=== PATIENT | male | born 1970 | race Caucasian/White ===

== ENCOUNTER 2023-04-10 15:48 | Inpatient (IN) | payer OTHER ==
[2023-04-10] MEDS ORDERED: SODIUM CHLORIDE 0.9% 1,000 ML IV STA (16:24)
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
[2023-04-10 17:08] LABS: Basophils # (A) 0.1 k/uL (0-0.2); Basophils % (A) 1 %; Eosinophils # (A) 0.1 k/uL (0-0.7); Eosinophils % (A) 1 %; HCT 44.3 % (39.0-53.0); HGB 15.5 gm/dL (13.0-17.5); Lymphocytes # (A) 1.3 k/uL (1.0-4.8); Lymphocytes % (A) 12 %; MCH 31.6 pg (25.0-35.0); MCV 90.5 fL (80.0-100.0); Mean Platelet Volume 7.9; Monocytes # (A) 0.5 k/uL (0-1.0); Monocytes % (A) 5 %; Neutrophils # (A) 8.4 k/uL (1.3-7.7); Neutrophils % (A) 80 %; Platelet Count 277 k/uL (150-450); WBC 10.5 k/uL (3.8-10.6)
[2023-04-10 17:16] LABS: ALT 111 U/L (4-49); AST 82 U/L (17-59); African American GFR (CKD) >90 (>60 ml/min/1.73 sqM); Albumin 4.5 g/dL (3.5-5.0); Alkaline Phosphatase 120 U/L (38-126); Anion Gap 13 mmol/L; Blood Urea Nitrogen 11 mg/dL (9-20); Calcium 9.2 mg/dL (8.4-10.2); Carbon Dioxide 22 mmol/L (22-30); Chloride 102 mmol/L (98-107); Glucose 248 mg/dL (74-99); Magnesium 1.9 mg/dL (1.6-2.3); Non-African American GFR(CKD) >90 (>60 ml/min/1.73 sqM); Potassium 4.5 mmol/L (3.5-5.1); Sodium 137 mmol/L (137-145); Total Bilirubin 0.5 mg/dL (0.2-1.3); Total Protein 7.4 g/dL (6.3-8.2)
[2023-04-10 17:36] LABS: INR 0.9 (<1.2); Partial Thromboplastin Time 23.1 sec (22.0-30.0); Prothrombin Time 10.2 sec (10.0-12.5)
--- NOTE | 2023-04-10 17:39 | XR ---
EXAMINATION TYPE: XR chest 2V DATE OF EXAM: 04/10/2023 5:26 PM CLINICAL INDICATION:Male, 53 years old with history of syncope; [facility] COMPARISON: None TECHNIQUE: XR chest 2V Frontal and lateral views of the chest. FINDINGS: Lungs/Pleura: There is no evidence of pleural effusion, focal consolidation, or pneumothorax. Pulmonary vascularity: Unremarkable. Heart/mediastinum: Cardiomediastinal silhouette is unremarkable. Musculoskeletal: No acute osseous pathology. IMPRESSION: No acute cardiopulmonary disease/process.
[2023-04-10 18:18] LABS: Appearance,Urine Clear (Clear); Bilirubin,Urine Negative (Negative); Blood,Urine Negative (Negative); Color,Urine Light Yellow; Glucose,Urine (UA) 3+ (Negative); Ketones,Urine Negative (Negative); Leukocyte Esterase,Urine Negative (Negative); Nitrite,Urine Negative (Negative); PH, Urine 5.5 (5.0-8.0); Protein,Urine Trace (Negative); Specific Gravity,Urine 1.012 (1.001-1.035); Urobilinogen,Urine <2.0 mg/dL (<2.0)
[2023-04-10] MEDS ORDERED: ASPIRIN 325 MG TAB PO STA (19:43)
[2023-04-10] MEDS ORDERED: NALOXONE 0.4 MG/ML 1 ML VIAL IV PRN (19:54)
[2023-04-10] MEDS ORDERED: ACETAMINOPHEN TAB 325 MG TAB PO PRN (19:54)
[2023-04-10] MEDS: atenoloL 25 MG TAB PO SCH (22:09)
[2023-04-10] MEDS: SODIUM CHLORIDE 0.9% 1,000 ML IV SCH (22:09)
[2023-04-11] MEDS: atenoloL 25 MG TAB PO SCH (08:31)
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
[2023-04-11] MEDS: carvediloL 12.5 MG TAB PO SCH ×2 (14:44→16:29)
[2023-04-11] MEDS: SODIUM CHLORIDE 0.9% 1,000 ML IV SCH (16:31)
[2023-04-11 20:35] LABS: Glucose,Whole Blood 163 mg/dL (70-110)
[2023-04-11] MEDS ORDERED: ATORVASTATIN 40 MG TAB PO SCH (21:00)
[2023-04-12 06:01] VITALS: RESP 16
[2023-04-12] MEDS: carvediloL 12.5 MG TAB PO SCH (06:08)
[2023-04-12 06:15] LABS: Glucose,Whole Blood 150 mg/dL (70-110)
--- NOTE | 2023-04-12 10:20 | CA ---
Transthoracic Echo Report Name: Luke Ndiaye Age: 53 Gender: M : 1970 Exam Date: 04/11/2023 12:44 Exam Location: [facility] Ht (in): 64 Wt (lb): 170 Ordering Physician: Pepe Suazo MD Attending/Referring Phys: [id number], [facility] Lead Psychologist Joe Camara RD Procedure CPT: Indications: Syncope Cardiac Hx: Technical Quality: Technically difficult study Contrast 1: Total Dose (mL): Contrast 2: Total Dose (mL): MEASUREMENTS (Male / Female) Normal Values 2D ECHO LV Diastolic Diameter PLAX 4.4 cm 4.2 - 5.9 / 3.9 - 5.3 cm LV Systolic Diameter PLAX 2.9 cm IVS Diastolic Thickness 1.3 cm 0.6 - 1.0 / 0.6 - 0.9 cm LVPW Diastolic Thickness 1.1 cm 0.6 - 1.0 / 0.6 - 0.9 cm LV Relative Wall Thickness 0.5 RV Internal Dim ED PLAX 2.3 cm LVOT Diameter 2.2 cm Aortic Root Diameter 2.4 cm LA Systolic Diameter LX 2.2 cm 3.0 - 4.0 / 2.7 - 3.8 cm LV Diastolic Volume MOD BP 60.2 cm??? 67 - 155 / 56 - 104 cm??? LV Systolic Volume MOD BP 38.5 cm??? 22 - 58 / 19 - 49 cm??? LV Ejection Fraction MOD BP 36.0 % >= 55 % LV Cardiac Index MOD BP 870.6 cm???/min???m??? LV Diastolic Volume MOD 4C 59.3 cm??? LV Systolic Volume MOD 4C 41.7 cm??? LV Ejection Fraction MOD 4C 29.7 % LV Cardiac Index MOD 4C 709.1 cm???/min???m??? LV Diastolic Length 4C 7.7 cm LV Systolic Length 4C 7.1 cm LV Diastolic Volume MOD 2C 61.5 cm??? LV Systolic Volume MOD 2C 34.9 cm??? LV Ejection Fraction MOD 2C 43.3 % LV Cardiac Index MOD 2C 1072.2 cm???/min???m??? LV Diastolic Length 2C 7.7 cm LV Systolic Length 2C 6.7 cm LA Volume 28.7 cm??? 18 - 58 / 22 - 52 cm??? LA Volume Index 15.2 cm???/m??? 16 - 28 cm???/m??? Ascending Aorta Diameter 2.3 cm DOPPLER AV Peak Velocity 396.9 cm/s AV Peak Gradient 63.0 mmHg AV Mean Velocity 311.2 cm/s AV Mean Gradient 42.4 mmHg AV Velocity Time Integral 91.0 cm LVOT Peak Velocity 63.0 cm/s LVOT Peak Gradient 1.6 mmHg LVOT Velocity Time Integral 15.9 cm LVOT Stroke Volume 59.6 cm??? LVOT Stroke Volume Index 32.6 ml/m??? LVOT Cardiac Index 2395.9 cm???/min???m??? AV Area Cont Eq vti 0.7 cm??? AV Area Cont Eq pk 0.6 cm??? MV Peak Velocity 83.3 cm/s MV Peak Gradient 2.8 mmHg MV Mean Velocity 47.2 cm/s MV Mean Gradient 1.1 mmHg MV Velocity Time Integral 28.1 cm MR Peak Velocity 225.6 cm/s MR Peak Gradient 20.4 mmHg Mitral E Point Velocity 72.9 cm/s Mitral A Point Velocity 82.2 cm/s Mitral E to A Ratio 0.9 MV Deceleration Time 242.6 ms TR Peak Velocity 144.8 cm/s TR Peak Gradient 8.4 mmHg Right Ventricular Systolic Press 13.4 mmHg PV Peak Velocity 131.8 cm/s PV Peak Gradient 7.0 mmHg FINDINGS Left Ventricle Normal LV size. Mild concentric LVH. Left ventricular ejection fraction is estimated at 40-45 %. Right Ventricle Normal right ventricular size. Right Atrium Normal right atrial size. Left Atrium Normal left atrial size. Mitral Valve Structurally normal mitral valve. Mild MR. Aortic Valve Aortic valve not well visualized. Moderate to severe AV calcification. [id number] aortic stenosis with a peak gradient of 63 mmHg and a mean gradient of 42 mmHg. Tricuspid Valve Tricuspid valve not well visualized. Mild TR. Pulmonic Valve Pulmonic valve not well visualized. No pulmonic regurgitation. Pericardium Normal pericardium. Aorta Normal size aortic root and proximal ascending aorta. CONCLUSIONS Technically difficult study with suboptimal acoustic windows Mild LV dysfunction aortic valve not well visualized but heavily calcified with a mean gradient of over 40 mmHg Previewed by: Dr. Manuel Pittman MD (Electronically Signed) Final Date: 12 April 2023 10:19
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
--- NOTE | 2023-04-12 14:59 | P.PN ---
Progress Note - Text Progress Note Date: 04/12/23 Met with patient and , discussed surgical aortic valve replacement at length. Patient will need heart catheterization and dental clearance, discussed with the patient. Dr. Horton will get patient set up for heart catheterization then will refer patient to our surgical services. We will get carotid dopplers, bedside spirometry, and labs when patient has his heart cath. Patient will work on getting dental clearance. Our contact information was given to patient, all questions were answered. Formal consult to be dictated when patient follows in the office.
[2023-04-12 15:24] VITALS: BP 134/85; PULSE 91; TEMP 98.1
--- NOTE | 2023-04-12 23:29 | PN ---
PROGRESS NOTE DATE OF SERVICE: 04/11/2023 SUBJECTIVE: The patient is doing better. No chest pain, shortness of breath. Waiting on his echocardiogram report. OBJECTIVE: CARDIOVASCULAR: S1, S2. LUNGS: Transmitted upper sounds. GI: Soft. HEMATOLOGY: Negative for Homans. PSYCH: Fair mood and affect. NEUROLOGIC: Alert and oriented x3. Echo was reviewed. He has [id number] AV calcification, moderate to severe aortic stenosis with a peak gradient of 63 and mean gradient of 42. Technically difficult study, mild LV dysfunction. He will possibly need aortic valve replacement down the road. We will have him follow up with Dr. Quevedo for possible evaluation for the aortic valve. Please see further orders. MMODL / IJN: [id number] /
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
== END 2023-04-12 16:22 | disposition home or self-care (01) | DRG 200 ==
LOC: EC 15:48 → 3SCARD 19:56
PROVIDERS: ADMIT Family Medicine; ATTEND Family Medicine
DX: I08.3 Combined rheumatic disorders of mitral, aortic and tricuspid valves (principal); I42.2 Other hypertrophic cardiomyopathy; R55 Syncope and collapse; I10 Essential (primary) hypertension; E86.0 Dehydration; E86.1 Hypovolemia; Z88.1 Allergy status to other antibiotic agents; Z88.0 Allergy status to penicillin; W01.0XXA Fall on same level from slipping, tripping and stumbling without subsequent striking against object, initial encounter; Z87.891 Personal history of nicotine dependence
CPT/HCPCS: 36415; 71046; 80053; 81003; 83036; 83735; 84484; 85025; 85379; 85610; 85730; 93005; 93270; 93306; 94760; 96360; 96361; 99285

== ENCOUNTER 2023-04-25 10:43 | Day surgery (SDC) | payer OTHER ==
[~2023-04-25 10:43] MED LIST: ALPRAZolam 0.25 MG TAB PO PRN; ALPRAZolam 0.5 MG TAB PO PRN; ASPIRIN 325 MG TAB PO STA; SODIUM CHLORIDE 0.9% 1,000 ML in EMPTY BAG 1 BAG IV SCH
[2023-04-25] MEDS ORDERED: SODIUM CHLORIDE 0.9% 1,000 ML IV ONE (11:07)
[2023-04-25 12:02] LABS: ALT 131 U/L (4-49); AST 51 U/L (17-59); African American GFR (CKD) >90 (>60 ml/min/1.73 sqM); Albumin 4.6 g/dL (3.5-5.0); Alkaline Phosphatase 103 U/L (38-126); Anion Gap 11 mmol/L; Blood Urea Nitrogen 9 mg/dL (9-20); Calcium 9.5 mg/dL (8.4-10.2); Carbon Dioxide 27 mmol/L (22-30); Chloride 102 mmol/L (98-107); Glucose 140 mg/dL (74-99); Magnesium 2.1 mg/dL (1.6-2.3); Non-African American GFR(CKD) >90 (>60 ml/min/1.73 sqM); Potassium 4.6 mmol/L (3.5-5.1); Sodium 140 mmol/L (137-145); Total Bilirubin 0.8 mg/dL (0.2-1.3); Total Protein 7.5 g/dL (6.3-8.2)
[2023-04-25 12:12] VITALS: RESP 16; TEMP 97.6
[2023-04-25 12:12] LABS: Basophils # (A) 0.1 k/uL (0-0.2); Basophils % (A) 1 %; Eosinophils # (A) 0.1 k/uL (0-0.7); Eosinophils % (A) 1 %; HCT 44.6 % (39.0-53.0); HGB 15.5 gm/dL (13.0-17.5); Lymphocytes # (A) 2.1 k/uL (1.0-4.8); Lymphocytes % (A) 23 %; MCHC 34.9 g/dL (31.0-37.0); Mean Platelet Volume 7.7; Monocytes # (A) 0.6 k/uL (0-1.0); Monocytes % (A) 6 %; Neutrophils # (A) 6.3 k/uL (1.3-7.7); Neutrophils % (A) 68 %; Partial Thromboplastin Time 25.4 sec (22.0-30.0); Platelet Count 335 k/uL (150-450); Prothrombin Time 10.6 sec (10.0-12.5); RBC 5.01 m/uL (4.30-5.90); WBC 9.4 k/uL (3.8-10.6)
[2023-04-25] MEDS ORDERED: BENZOCAINE SPRAY 1 CAN MUCOUS MEM ONE ×2 (12:45→12:50)
[2023-04-25] MEDS ORDERED: LIDOCAINE 1% INJ 10MG/ML (20 ML MDV) ONE (12:48)
[2023-04-25] MEDS ORDERED: VERAPAMIL 2.5 MG/ML 2 ML AMP ONE (12:48)
[2023-04-25] MEDS ORDERED: fentaNYL (PF) 50 MCG/ML 2 ML AMP ONE (12:51)
[2023-04-25] MEDS ORDERED: MIDAZOLAM 2 MG/2 ML VIAL IVP ONE ×3 (12:53→13:10)
[2023-04-25] MEDS ORDERED: fentaNYL (PF) 50 MCG/1 ML VIAL IVP ONE (12:53)
[2023-04-25] MEDS ORDERED: IV FLUID CONTINUATION 1,000 ML IV ONE (12:55)
--- NOTE | 2023-04-25 13:05 | P.PCN ---
Date of Procedure: 04/25/23 Operative Findings: TRANSESOPHAGEAL ECHOCARDIOGRAM BUSINESS RULES DEVELOPER: AMRIK MORFIN MD, RPVI INDICATION: Aortic stenosis SEDATION: Conscious sedation COMPLICATION: None LEVEL OF SEDATION Moderate with sedation in length of 16 minutes PROCEDURE DESCRIPTION: After obtaining an informed consent, the patient was brought to transesophageal echocardiogram room. Pulse oximetry and heart monitors were attached to the patient. The patient throat was sprayed using lidocaine. The patient was turned into left lateral position. After that a bite guard was placed. After an appropriate conscious sedation was initiated, the transesophageal echocardiogram was advanced through a bite guard into the mid esophagus. A 2-D echocardiogram images, color Doppler images, continuous wave images, pulse-wave images, of various cardiac structure were performed. After that the transesophageal echocardiogram probe was advanced into the stomach and fixed to obtain transgastric view was. The probe was brought into the mid esophagus. Inter-atrial septum was interrogated using 2D images, color Doppler images, and then contrast study. After that transesophageal echocardiogram was withdrawn out and upon withdrawing the descending thoracic aorta all the way up to the arch was evaluated. CONCLUSION: 1. Bicuspid aortic valve with fusion of the right and left coronary cusps and evidence of aortic sclerosis and severe stenosis with a mean gradient of 41 mmHg 2. Normal left ventricular dimension and systolic function with evidence of concentric left ventricular hypertrophy 3. Normal mitral valve leaflets with mild mitral regurgitation 4. Normal tricuspid valve and pulmonic valve 5. Aneurysmal interatrial septum was evidence of patent foramen ovale and [id number]-vo-xdqa shunt and possibly hnjg-nd-wgazo shunt 6. No evidence of pericardial effusion
[2023-04-25] MEDS ORDERED: LIDOCAINE 1% INJ 10MG/ML (20 ML MDV) SQ ONE (13:10)
[2023-04-25] MEDS ORDERED: VERAPAMIL SYRINGE (5 MG/10 ML) INTRAARTER ONE (13:12)
[2023-04-25] MEDS ORDERED: HEPARIN SODIUM 1,000 UN/ML (10ML VL) IVP ONE (13:14)
[2023-04-25] MEDS ORDERED: RX INFO: IV CONTRAST WAS GIVEN 1 EACH MISC MISCELLANE PRN (13:17)
[2023-04-25] MEDS ORDERED: IOPAMIDOL-370 200ML BTL IVP ONE (13:18)
--- NOTE | 2023-04-25 13:20 | P.PCN ---
Date of Procedure: 04/25/23 Operative Findings: CARDIAC CATHETERIZATION PERFORMING PHYSICIAN: Ming Galvin MD, RPVI PROCEDURE PERFORMED: 1. Selective right and left coronary angiogram 2. Ultrasound-guided access of the right radial artery INDICATION: Severe aortic stenosis COMPLICATION: None APPROACH: Right radial artery LEVEL OF SEDATION: Moderate with a sedation length of 8 minutes PROCEDURE DESCRIPTION: After obtaining an informed consent, the patient was brought to cardiac public works laborer. Local anesthesia was performed using lidocaine subcutaneously. The right radial artery was cannulated using Seldinger technique, the guidewire passed easily, following that we advanced a 5-Sudanese sheath dilator assembly, the wire and dilator were removed and sheath was flushed. Following that, 2 mg of verapamil along with 5000 unit heparin were given. Selective right and left coronary angiogram using a 6-Sudanese JR4 and JL 3.5 catheters. The procedure was completed there was no complication. SELECTIVE CORONARY ANGIOGRAM: The right coronary artery: Large-caliber vessel and a dominant vessel and appears to be angiographically normal Left main: Is angiographically normal The left circumflex: Large caliber vessel nondominant vessel is normal. Gives rise into the first and second obtuse marginal branches both appeared to be normal The left anterior descending artery: Is angiographically normal. It gives rise into the first and second diagonal branches and both appeared to be angiographically normal CONCLUSION: 1. Normal coronary angiogram POSTPROCEDURE MANAGEMENT: The patient to be seen and evaluated for aortic valve replacement
[2023-04-25] MEDS ORDERED: SODIUM CHLORIDE 0.9% 1,000 ML IV SCH (13:30)
[2023-04-25] MEDS ORDERED: SODIUM CHLORIDE 0.9% 500 ML 500 ML IV ONE (14:45)
--- NOTE | 2023-04-25 17:19 | US ---
EXAMINATION TYPE: US carotid duplex BILAT DATE OF EXAM: 04/25/2023 COMPARISON: NONE CLINICAL INDICATION: Male, 53 years old with history of preop cardiac surgery; pre open heart TECHNIQUE: Carotid duplex ultrasound examination. Indirect Doppler criteria was utilized. FINDINGS: EXAM MEASUREMENTS: RIGHT: Peak Systolic Velocity (PSV) cm/sec ----- Right CCA: 63.9 ----- Right ICA: 69.4 ----- Right ECA: 67.7 ICA/CCA ratio: 1.1 RIGHT: End Diastole cm/sec ----- Right CCA: 18.4 ----- Right ICA: 39.8 ----- Right ECA: 6.1 LEFT: Peak Systolic Velocity (PSV) cm/sec ----- Left CCA: 57.5 ----- Left ICA: 88.2 ----- Left ECA: 112.0 ICA/CCA ratio: 1.5 LEFT: End Diastole cm/sec ----- Left CCA: 16.4 ----- Left ICA: 36.8 ----- Left ECA: 11.0 VERTEBRALS (direction of flow): Right Vertebral: Antegrade Left Vertebral: Antegrade Rhythm: Normal ANODE ADJUSTER NOTES: Mild homogeneous plaque with no stenosis seen IMPRESSION: No hemodynamically significant internal carotid artery stenosis on either side. Criteria for Assigning % of Stenosis / Diameter reduction (Estimation based on the indirect measurements of the internal carotid artery velocities (ICA PSV). 1. Normal (no stenosis)=ICA PSV < 125 cm/s: ratio < 2.0: ICA EDV<40 cm/s. 2. Less than 50% stenosis=ICA PSV < 125 cm/s: ratio < 2.0: ICA EDV<40 cm/s. 3. 50 to 69% stenosis=ICA PSV of 125 to 230 cm/s: ration 2.0 ? 4.0: ICA EDV 40-100 cm/s. 4. Greater than 70% stenosis to near occlusion= ICA PSV > 230 cm/s: ratio > 4.0: ICA EDV > 100 cm/s. 5. Near occlusion= ICA PSV velocities may be low or undetectable: variable ratio and ICA EDV. 6. Total occlusion=unable to detect flow.
[2023-04-25 17:51] LABS: Chol/HDL Ratio 2.63 Ratio; LDL Cholesterol,Calculated 42.7 mg/dL (0.0-131.0)
[2023-04-25 19:01] VITALS: BP 112/65; PULSE 80
[2023-04-27 01:53] LABS: Hepatitis A Antibody IgM Nonreactive; Hepatitis B Core IgM Nonreactive; Hepatitis B Surface Antigen Nonreactive; Hepatitis C IgG Antibody Nonreactive
== END 2023-04-25 17:20 | disposition home or self-care (01) ==
LOC: CATHCVL 10:43
PROVIDERS: ATTEND Internal Medicine Interventional Cardiology
DX: I08.0 Rheumatic disorders of both mitral and aortic valves (principal); I25.10 Atherosclerotic heart disease of native coronary artery without angina pectoris; Q21.12 Patent foramen ovale; Z79.899 Other long term (current) drug therapy
CPT/HCPCS: 94150; 93312; 93320; 93325; 93454; 76937; 80061; 80053; 80074; 84443; 83735; 85025; 85610; 85730; 87070; 83036; 93880; 99152; C1769; C1894; J2250; J2001; J1644; J3010; Q9967

== ENCOUNTER → 2023-05-10 | Outpatient (CLI) | payer OTHER ==
--- NOTE | 2023-05-10 08:29 | CT ---
EXAMINATION TYPE: CT chest wo con CT DLP: 574 mGycm, Automated exposure control for dose reduction was used. DATE OF EXAM: 05/10/2023 8:02 AM COMPARISON: Chest radiograph from same day. CLINICAL INDICATION:Male, 53 years old with history of I35.1 AORTIC STENOSIS; PHH, aortic stenosis TECHNIQUE: Multiple axial images were obtained through the chest. Sagittal and coronal reformats were created for review. Contrast used: mL of (None if empty) Oral contrast used: (None if empty) FINDINGS: LUNGS/ PLEURA: No focal consolidation, pneumothorax or pleural effusion. Scattered 1-2 mm nodule dens ities are seen throughout the lungs. AIRWAY: Patent and unremarkable. HEART: Size within normal limits. Aortic valve calcifications are severe.. MEDIASTINUM: No gross evidence of adenopathy. VASCULATURE: No aortic aneurysm. MUSCULOSKELETAL: Moderate disc degeneration changes are present throughout the thoracolumbar spine. SOFT TISSUES/LYMPH NODES: Unremarkable. LOWER NECK: No significant findings. UPPER ABDOMEN: No significant findings. IMPRESSION: 1. Severe calcified lesions of aortic valve cusps. 2. Scattered 1 to 2 mm pulmonary nodules, no clinically significant pulmonary nodules. 3. No evidence for acute process. Follow up recommendations for incidental pulmonary nodules, if there are any, are per [employer]?s [place] [employer] [employer] or [place] [employer]. [email or web address].org/[email or web address]-[email or web address]?lang=us
--- NOTE | 2023-05-10 08:43 | US ---
EXAMINATION TYPE: US vein mapping BILAT DATE OF EXAM: 05/10/2023 8:13 AM COMPARISON: NONE CLINICAL INDICATION: Male, 53 years old with history of OPEN HEART; open heart SIDE PERFORMED: Bilateral TECHNIQUE: Lower extremity saphenous vein is examined and measured utilizing real time linear array sonography. Patient History: Smoker: previous Heart Disease: needs valve replaced Previous DVT: n Vascular Surgery: n Discoloration: n Hypertension: y Diabetes: n Paralysis: n Varicosities: y Edema: n DUPLEX FINDINGS: Greater Saphenous: Color flow seen Lesser Saphenous: Color flow seen Measurements in mm: Right Greater Saphenous: Groin: 5x6mm High Thigh: 4x4 mm Mid Thigh: 4x4 mm Above Knee: 4x4 mm Knee: 4x4 mm Below Knee: 3x3 mm Mid Calf: 3x4 mm At Ankle: 3x3 mm Left Greater Saphenous: Groin: 6x7 mm High Thigh: 5x5 mm Mid Thigh: 4x5 mm Above Knee: 4x5 mm Knee: 4x4 mm Below Knee: 3x3 mm Mid Calf: 3x4 mm At Ankle: 3x4 mm IMPRESSION: 1. Bilateral GSV measurements listed above. 2. Performing surgeon to determine viability as conduit.
[2023-05-10 08:52] LABS: HGB 14.7 gm/dL (13.0-17.5); MCH 30.8 pg (25.0-35.0); MCHC 34.2 g/dL (31.0-37.0); MCV 90.3 fL (80.0-100.0); Mean Platelet Volume 8.2; Platelet Count 253 k/uL (150-450); RBC 4.76 m/uL (4.30-5.90); WBC 8.7 k/uL (3.8-10.6)
[2023-05-10 09:03] LABS: INR 0.9 (<1.2); Partial Thromboplastin Time 24.3 sec (22.0-30.0); Prothrombin Time 10.2 sec (10.0-12.5)
[2023-05-10 09:24] LABS: ALT 120 U/L (4-49); AST 46 U/L (17-59); African American GFR (CKD) >90 (>60 ml/min/1.73 sqM); Albumin 4.3 g/dL (3.5-5.0); Albumin/Globulin Ratio 1.8; Alkaline Phosphatase 95 U/L (38-126); Anion Gap 9 mmol/L; Blood Urea Nitrogen 9 mg/dL (9-20); Calcium 9.3 mg/dL (8.4-10.2); Carbon Dioxide 25 mmol/L (22-30); Chloride 105 mmol/L (98-107); Globulin 2.4 g/dL; Glucose 240 mg/dL (74-99); Non-African American GFR(CKD) >90 (>60 ml/min/1.73 sqM); Potassium 4.1 mmol/L (3.5-5.1); Sodium 139 mmol/L (137-145); Total Bilirubin 0.7 mg/dL (0.2-1.3); Total Protein 6.7 g/dL (6.3-8.2)
[2023-05-10 09:57] LABS: Appearance,Urine Clear (Clear); Bilirubin,Urine Negative (Negative); Blood,Urine Negative (Negative); Color,Urine Colorless; Glucose,Urine (UA) 4+ (Negative); Ketones,Urine Negative (Negative); Leukocyte Esterase,Urine Negative (Negative); Nitrite,Urine Negative (Negative); Protein,Urine Negative (Negative); Specific Gravity,Urine 1.015 (1.001-1.035); Urobilinogen,Urine <2.0 mg/dL (<2.0)
--- NOTE | 2023-05-10 11:07 | P.PN ---
Progress Note - Text Progress Note Date: 05/10/23 5 meter walk test completed without difficulty: #1 3.07 sec #2 3.15 sec #3 3.2 sec STS risk score calculated for aortic valve replacement and discussed with the patient.
== END | disposition home or self-care (01) ==
LOC: RADCTMAIN 07:31
PROVIDERS: ATTEND Thoracic Surgery (Cardiothoracic Vascular Surgery)
DX: Z01.810 Encounter for preprocedural cardiovascular examination (principal); I35.0 Nonrheumatic aortic (valve) stenosis; I35.8 Other nonrheumatic aortic valve disorders; I35.1 Nonrheumatic aortic (valve) insufficiency; R91.8 Other nonspecific abnormal finding of lung field; I10 Essential (primary) hypertension
CPT/HCPCS: 71250; 80053; 81003; 85027; 85610; 85730; 86850; 86900; 86901; 86920; 93970

== ENCOUNTER 2023-05-11 05:37 | Inpatient (IN) | payer OTHER ==
[~2023-05-11 05:37] MED LIST changes: -ALPRAZolam 0.25 MG TAB PO PRN; -ALPRAZolam 0.5 MG TAB PO PRN; -ASPIRIN 325 MG TAB PO STA; +CALCIUM CHLORIDE 100 MG/ML 10 ML SYRINGE IV ONE; +CHLORHEXIDINE GLUCONATE 15 ML CUP MUCOUS MEM ONE; +HEPARIN SODIUM 1,000 UN/ML (10ML VL) IV ONE; +MANNITOL 25% 12.5 GM/50 ML VIAL IV ONE; +NITROGLYCERIN SL TABS 0.4 MG TAB SUBLINGUAL ONE; +NITROGLYCERIN-D5W PMX 25 MG/250 ML BTL IV ONE; +PHENYLEPHRINE 10 MG/ML VIAL IV ONE; +PROTAMINE SULFATE 10 MG/ML 25 ML VIAL IV ONE; +SODIUM BICARB 8.4% 50 ML SYR (1 MEQ/ML) IV ONE; -SODIUM CHLORIDE 0.9% 1,000 ML in EMPTY BAG 1 BAG IV SCH
[2023-05-11] MEDS: LACTATED RINGERS 1,000 ML IV ONE (05:58)
[2023-05-11] MEDS ORDERED: ONDANSETRON 4 MG/2 ML VIAL ONE (06:41)
[2023-05-11] MEDS: METOPROLOL TARTRATE 12.5 MG TAB PO ONE (06:45)
[2023-05-11] MEDS: ATORVASTATIN 10 MG TAB PO ONE (06:45)
[2023-05-11] MEDS: ASPIRIN 325 MG TAB PO ONE (06:45)
[2023-05-11 06:52] LABS: Glucose,Whole Blood 180 mg/dL (70-110)
[2023-05-11] MEDS ORDERED: PROPOFOL 10 MG/ML 20 ML VIAL IV ONE (07:31)
[2023-05-11] MEDS ORDERED: ROCURONIUM 10 MG/ML (5 ML VIAL) IV ONE (07:31)
[2023-05-11] MEDS ORDERED: INSULIN REGULAR 100 UNIT/ML VIAL (IV) ONE (07:31)
[2023-05-11] MEDS ORDERED: TRANEXAMIC 1,000 MG/100ML-NACL PREMIX BAG ONE (07:31)
[2023-05-11] MEDS ORDERED: MIDAZOLAM HCL 10 MG/10 ML VIAL ONE (07:31)
[2023-05-11] MEDS ORDERED: VECURONIUM 10 MG VIAL IV ONE (07:31)
[2023-05-11] MEDS ORDERED: PROTAMINE SULFATE 10 MG/ML 25 ML VIAL IV ONE (07:31)
[2023-05-11] MEDS ORDERED: fentaNYL (PF) 50 MCG/ML 50 ML VIAL ONE (07:31)
[2023-05-11] MEDS ORDERED: HEPARIN SODIUM,PORCINE 10,000 UNIT/ML 1 ML VIAL ONE (07:31)
[2023-05-11 08:30] LABS: ABG Base Excess -1.9 mmol/L; ABG Glucose Whole Blood 156 mg/dL (75-99); ABG HCO3 24 mmol/L (21-25); ABG Hematocrit 40 % (34.0-46.0); ABG Lactic Acid Whole Blood 1.6 mmol/L (0.5-1.6); ABG Oxygen Saturation >99.4 % (94-97); ABG PCO2 45 mmHg (35-45); ABG PH 7.34 (7.35-7.45); ABG PO2 336 mmHg (83-108); ABG Potassium Whole Blood 4.1 mmol/L (3.4-4.5); ABG Sodium Whole Blood 141 mmol/L (135-146); Allen Test Performed? Yes
[2023-05-11 09:18] LABS: ABG Base Excess -0.8 mmol/L; ABG Glucose Whole Blood 136 mg/dL (75-99); ABG HCO3 24 mmol/L (21-25); ABG Hematocrit 40 % (34.0-46.0); ABG Lactic Acid Whole Blood 1.7 mmol/L (0.5-1.6); ABG Oxygen Saturation >99.4 % (94-97); ABG PCO2 39 mmHg (35-45); ABG PO2 213 mmHg (83-108); ABG Potassium Whole Blood 4.1 mmol/L (3.4-4.5); ABG Sodium Whole Blood 140 mmol/L (135-146); Allen Test Performed? Yes
[2023-05-11] MEDS: ceFAZolin 1,000 MG in SODIUM CHLORIDE 0.9% 1,000 ML IRRIGATION ONE (09:36)
[2023-05-11] MEDS: SODIUM CHLORIDE 0.9% 500 ML 500 ML with HEPARIN SODIUM,PORCINE (1 ML) 5,000 UNIT IV ONE (09:36)
[2023-05-11 09:52] LABS: ABG Base Excess -0.1 mmol/L; ABG Glucose Whole Blood 106 mg/dL (75-99); ABG HCO3 24 mmol/L (21-25); ABG Hematocrit 29 % (34.0-46.0); ABG Lactic Acid Whole Blood 1.8 mmol/L (0.5-1.6); ABG Oxygen Saturation >99.4 % (94-97); ABG PCO2 34 mmHg (35-45); ABG PH 7.45 (7.35-7.45); ABG Potassium Whole Blood 4.7 mmol/L (3.4-4.5); ABG Sodium Whole Blood 138 mmol/L (135-146); Allen Test Performed? Yes
[2023-05-11 10:24] LABS: ABG HCO3 24 mmol/L (21-25); Allen Test Performed? Yes
[2023-05-11 11:45] LABS: ABG Base Excess -1.9 mmol/L; ABG Glucose Whole Blood 164 mg/dL (75-99); ABG Hematocrit 29 % (34.0-46.0); ABG Oxygen Saturation 97.6 % (94-97); ABG PCO2 43 mmHg (35-45); ABG PH 7.35 (7.35-7.45); ABG PO2 86 mmHg (83-108); ABG Potassium Whole Blood 3.9 mmol/L (3.4-4.5); ABG Sodium Whole Blood 141 mmol/L (135-146)
[2023-05-11] MEDS ORDERED: CALCIUM GLUCONATE IN NACL 2 GM in SALINE 1 100ML.BAG IVPB PRN (12:00)
[2023-05-11] MEDS ORDERED: DEXTROSE 50% SYRINGE 50 ML IVP PRN ×2 (12:00)
[2023-05-11] MEDS ORDERED: AMIODARONE 360 MG in DEXTROSE 5% IN WATER 200 ML IV PRN (12:00)
[2023-05-11] MEDS ORDERED: DEXTROSE 5% IN WATER 100 ML with AMIODARONE 150 MG IV PRN (12:00)
[2023-05-11] MEDS ORDERED: Potassium Replacement Protocol 1 EACH MISC MISCELLANE PRN (12:00)
[2023-05-11] MEDS ORDERED: AMIODARONE 450 MG in DEXTROSE 5% IN WATER 250 ML IV PRN (12:00)
[2023-05-11] MEDS ORDERED: Magnesium Replacement Protocol 1 EACH MISC MISCELLANE PRN (12:00)
[2023-05-11] MEDS ORDERED: hydrALAZINE HCL 20 MG/ML 1 ML VIAL IVP PRN (12:00)
[2023-05-11] MEDS ORDERED: METOCLOPRAMIDE 5 MG/ML 2 ML VIAL IVP PRN (12:00)
[2023-05-11] MEDS ORDERED: BENZOCAINE/MENTHOL LOZENG 1 EACH LOZENGE MUCOUS MEM PRN (12:00)
[2023-05-11 12:48] LABS: ABG Ionized Calcium 1.2 mg/dL (4.5-5.3)
[2023-05-11 12:49] LABS: ABG Ionized Calcium 1.2 mg/dL (4.5-5.3)
[2023-05-11 12:50] LABS: ABG PO2 >420 mmHg (83-108)
[2023-05-11 12:52] LABS: ABG Lactic Acid Whole Blood 2.8 mmol/L (0.5-1.6)
[2023-05-11 13:06] LABS: Glucose,Whole Blood 130 mg/dL (70-110)
--- NOTE | 2023-05-11 13:06 | P.OP ---
Date of Procedure: 05/11/23 Preoperative Diagnosis: Calcific bicuspid aortic valve stenosis Postoperative Diagnosis: Same Procedure(s) Performed: Aortic valve replacement with 27 mm Dunne Inspiris bovine valve prosthesis with aortic root enlargement with woven dacron patch (Bill Dacosta technique) and ligation of the left atrial appendage with 35mm AtriCure clamp. SUKHJINDER by anesthesia. Epiaortic ultrasonography. Implants: 27 mm Dunne Inspira's bovine pericardial valve, 35 mm AtriCure clip, dacron graft patch for root enlargement Anesthesia: CARLEY Surgeon: Yevgeniy Quevedo Supervisor Rod Placing #1: Wesly Meek Estimated Blood Loss (ml): 350 IV fluids (ml): 2,000 Urine output (ml): 500 Pathology: other (Aortic valve) Condition: stable Disposition: ICU Indications for Procedure: 53-year-old male with symptomatic aortic stenosis and proven bicuspid aortic valve. He was referred for elective valve replacement. Cardiac catheterization was normal. Dental clearance and appropriate workup were obtained. During consultation, the patient was offered to either mechanical or biological prosthesis and the risks versus benefits of each were explained. Patient did not wish to be on Coumadin and opted for a biologic valve. It was explained if we were going to place a biologic valve that we would likely do a root enlargement to allow implantation of the largest valve possible for subsequent valve in valve transcatheter valve placement. Operative Findings: Heart was markedly enlarged. The aorta was relatively narrow. Epiaortic ultrasonography revealed no significant disease in the ascending aorta. On exploration of the valve, was a bicuspid valve heavily calcified leaflets of the annulus. There was complete fusion of the left and right coronary cusps. There was a heavily calcific raphae between the 2. The left main coronary ostium was displaced laterally to the right and was very close to the commissure between the left and noncoronary cusps. Attempts to pass a valve sizer through the root would only allow passage of a 23 mm sizer following excision of the valve and therefore it was decided to proceed with root enlargement. Following this we were able to see a 27 mm valve fairly easily. Patient easily from cardiopulmonary bypass following valve implantation and SUKHJINDER demonstrated mild paravalvular leak which appeared to improve significantly with administration of protamine. Mean gradient across the aortic valve by SUKHJINDER on completion of the procedure was 9 mmHg with a cardiac index over 3. Description of Procedure: Patient was brought to the operating room and placed supine on the operating table. General anesthesia was induced. Preoperative monitoring lines have been placed in the preop holding area. SUKHJINDER probe was placed. Matthew catheter was placed. Anterior torso and bilateral lower extremities were sterilely prepped and draped in standard fashion. After timeout, midline sternotomy was performed. The left pleural space was opened widely and the right pleural space was opened minimally. Pericardium was opened in the midline and the heart was exposed with pericardial sutures. Epiaortic ultrasonography was performed. Patient was heparinized and cannulated for cardiopulmonary bypass with a 7 mm soft flow cannula in the distal ascending aorta, two-stage venous cannula through the right atrial appendage into the inferior vena cava, antegrade and retrograde cardioplegia lines placed in standard fashion. The patient was placed on cardiopulmonary bypass and stabilized. 35 mm AtriCure clip was placed on the base of the left atrial appendage. 4-0 Prolene pursestring was placed in the right superior pulmonary vein. Aorta was crossclamped and the heart arrested with cold crystalloid cardioplegia followed by retrograde cardioplegia. Left atrial vent was placed through the right superior pulmonary vein. The aorta was opened transversely and the valve exposed. The valve was excised and the annulus decalcified. Copious irrigation was performed at various points during the valve procedure. Valve sizing revealed very tight sinotubular junction and a relatively small annulus. We proceeded to aortic root enlargement by cutting down onto the commissure between the left and noncoronary cusps and then extending this incision laterally beneath the noncoronary cusp. We did not extended in the other direction due to the proximity of the left main coronary artery to this commissure. Woven dacryon graft was opened and cut to appropriate size. It was sewn into the above-mentioned incision and up the aorta on either side using 4-0 Prolene suture in modification of the technique described by Dr. Bill Dacosta. Valve sutures were placed between the raphae and the commissure between the right and noncoronary cusps and then further valve sutures were extended both posteriorly and anteriorly onto the patch. The annulus was again sized and a 27 mm Inspira's valve sizer was placed without difficulty. This valve was opened and brought up on the field of the valve sutures placed in the sewing ring of the valve. The valve was seated in the previously placed sutures were tied. Annular sutures were then completed by placing sutures through the sewing ring of the valve and out the patch and these were tied on the outside. We again irrigated and then completed the aortic closure with the patch toward the left side and with pledgeted 4-0 Prolene suture from the left side up to the patch. On completion of the aortic closure, the patient was placed in Trendelenburg and the cross-clamp was removed. After few minutes the patient return to normal sinus rhythm. Left atrial vent had been removed. Atrial and ventricular pacing wires were placed but we did not need to pace the patient. The aortic suture line was checked and 1 reinforcing suture was placed and that it was reinforced with some CoSeal. The heart was de-aired under SUKHJINDER guidance with a 16-gauge Angiocath in the apex of the ventricle. Once the area was complete antegrade and retrograde cardioplegia lines were removed. After appropriate reperfusion patient was weaned from cardiopulmonary bypass without the need for inotropic support. Excellent hemodynamics were noted. SUKHJINDER showed excellent right and left ventricular function and good valve function with minimal gradient. There was a very small eccentric paravalvular leak which improved following administration of protamine. Protamine was administered and good hemostasis was obtained throughout. Patient was decannulated in standard fashion and the pump was returned to the patient. Patient did not require any blood or blood product transfusion. Once good hemostasis had been verified and the patient was stable hemodynamically with a good appearing SUKHJINDER, the chest was irrigated with antibiotic solution. The left pleural space was drained with a 32 [place] chest tube. Mediastinum was drained with a 36 [place] chest tube. Sternum was closed with 8 sternal wires. Fascia was closed with 0 Ethibond. Subcutaneous and subcuticular layers were closed with layers of Vicryl suture. Dry sterile dressings were applied the patient was transferred to the ICU in stable condition on no inotropic support.
[2023-05-11 13:16] LABS: ABG Base Excess -0.7 mmol/L; ABG HCO3 24 mmol/L (21-25); ABG Oxygen Saturation 99.7 % (94-97); ABG PCO2 41 mmHg (35-45); ABG PH 7.38 (7.35-7.45); ABG PO2 278 mmHg (83-108); ABG TCO2 26 mmol/L (19-24); Allen Test Performed? Yes
[2023-05-11] MEDS: LACTATED RINGERS 1,000 ML IV SCH (13:20)
[2023-05-11] MEDS: INSULIN REGULAR 100 UNIT in SODIUM CHLORIDE 0.9% 100 ML IV SCH (13:21)
[2023-05-11 13:28] LABS: INR 1.2 (<1.2); Partial Thromboplastin Time 28.2 sec (22.0-30.0); Prothrombin Time 12.4 sec (10.0-12.5)
[2023-05-11] MEDS: CLEVIDIPINE BUTYRATE 25 MG in EMPTY BAG 1 BAG IV SCH (13:29)
[2023-05-11] MEDS: ACETAMINOPHEN IV (For NPO) 1,000 MG in EMPTY BAG 1 BAG IVPB SCH ×2 (13:29→17:15)
[2023-05-11] MEDS: ALBUMIN HUMAN 5% 250 ML in EMPTY BAG 1 BAG IVPB PRN (13:31)
[2023-05-11 13:33] LABS: Ionized Calcium 5.1 mg/dL (4.5-5.3)
[2023-05-11] MEDS: IPRATROPIUM-ALBUTEROL 3 ML NEB INHALATION SCH ×2 (13:33→20:36)
[2023-05-11 13:39] LABS: Basophils % (A) 0 %; Eosinophils % (A) 0 %; HCT 32.9 % (39.0-53.0); Lymphocytes # (A) 1.2 k/uL (1.0-4.8); Lymphocytes % (A) 8 %; MCH 31.1 pg (25.0-35.0); MCHC 34.6 g/dL (31.0-37.0); MCV 90.1 fL (80.0-100.0); Monocytes # (A) 0.6 k/uL (0-1.0); Monocytes % (A) 5 %; Neutrophils # (A) 12.1 k/uL (1.3-7.7); Neutrophils % (A) 86 %; Platelet Count 149 k/uL (150-450); RBC 3.66 m/uL (4.30-5.90); RDW 12.1 % (11.5-15.5)
[2023-05-11 13:40] LABS: HGB 11.4 gm/dL (13.0-17.5)
--- NOTE | 2023-05-11 13:41 | XR ---
EXAMINATION TYPE: XR chest 1V portable DATE OF EXAM: 05/11/2023 1:33 PM CLINICAL INDICATION:Male, 53 years old with history of Post Operative Cardiac Surgery; COMPARISON: Chest radiographs from 04/10/2023. TECHNIQUE: XR chest 1V portable Frontal view of the chest. FINDINGS: Lungs/Pleura: There is no evidence of pleural effusion, focal consolidation, or pneumothorax. Pulmonary vascularity: Unremarkable. Heart/mediastinum: Cardiomediastinal silhouette is unremarkable. Post aortic valve repair changes. L eft atrial appendage occlusion device is present. Musculoskeletal: No acute osseous pathology. Midline sternotomy wires are noted. Other findings: None Lines/Tubes: The gastric tube distal tip and side-port project over the gastric lumen. The Endotracheal tube terminates above the neema. There is a Caroline-Puma catheter with tip projecting over the spine. Left thoracotomy tube is present without evidence of pneumothorax. Drainage tubes with tips projecting over the mediastinum. IMPRESSION: Postsurgical changes with lines as described above.
[2023-05-11 13:43] LABS: ALT 65 U/L (4-49); AST 50 U/L (17-59); African American GFR (CKD) >90 (>60 ml/min/1.73 sqM); Albumin 2.9 g/dL (3.5-5.0); Alkaline Phosphatase 59 U/L (38-126); Anion Gap 6 mmol/L; Blood Urea Nitrogen 6 mg/dL (9-20); Calcium 8.7 mg/dL (8.4-10.2); Carbon Dioxide 22 mmol/L (22-30); Chloride 111 mmol/L (98-107); Glucose 114 mg/dL (74-99); Magnesium 3.2 mg/dL (1.6-2.3); Non-African American GFR(CKD) >90 (>60 ml/min/1.73 sqM); Potassium 4.1 mmol/L (3.5-5.1); Sodium 139 mmol/L (137-145); Total Bilirubin 0.7 mg/dL (0.2-1.3); Total Protein 4.7 g/dL (6.3-8.2)
[2023-05-11 14:09] LABS: Glucose,Whole Blood 130 mg/dL (70-110)
--- NOTE | 2023-05-11 14:41 | P.CNPUL ---
History of Present Illness Consult date: 05/11/23 Requesting physician: Yevgeniy Quevedo Reason for consult: other (Ventilator/critical care management) Chief complaint: Shortness of breath History of present illness: This is a 53-year-old male patient with a history of hypertension and hyperlipidemia who had developed an acute episode of shortness of breath while out hunting in the cold. He had been seen and evaluated by cardiology and libby reddy his evaluation he was found to have a bicuspid aortic valve stenosis. He was brought in today surgery. He had undergone aortic valve replacement with a Inspiris bovine valve prosthesis and aortic root enlargement along with ligation of the left atrial appendage. He is seen in the postoperative period in the intensive care unit. He is intubated on mechanical ventilator. Current settings are assist-control mode at a rate of 16, tidal volume 500, FiO2 70% and a PEEP of 10. Arterial blood gases revealed a PaO2 of 278, pCO2 41 and a pH of 7.38 on 100% FiO2. He is currently been weaned down to 50% FiO2. He is sedated on propofol at 40 mcg/kg/min. Lactated Ringer's at 50 MLS per hour. Insulin drip at 1 unit/h. Mediastinal and left pleural chest tube remains in place. PA pressure 36/23. Cardiac output 4.3. Cardiac index 2.3. Chest x-ray reveals postsurgical changes with appropriate endotracheal tube, gastric tube, [place] catheter and chest tubes in good position. No evidence of pneumothorax. White count 14.0. Hemoglobin 11.4. Platelets 149. Sodium 139. Potassium 4.1. Bicarb 22. BUN 6. Creatinine 0.48. Glucose 114. Magnesium 3.2. Calcium 5.1. Albumin 2.9. He is continued on bronchodilators. Heparin for DVT prophylaxis. Review of Systems ROS unobtainable: due to endotracheal tube Past Medical History Past Medical History: Hyperlipidemia, Hypertension, Syncope Additional Past Medical History / Comment(s): recent adm. for dizziness, passed out, pt states he needs a new valve, some SOB w/exertion, states he sometimes feels a flutter, was put on BP med during recent adm. but has been d/c by news operations manager because BP was too low, seasonal allergies History of Any Multi-Drug Resistant Organisms: None Reported Past Surgical History: Heart Catheterization Additional Past Surgical History / Comment(s): SUKHJINDER Past Anesthesia/Blood Transfusion Reactions: No Reported Reaction Additional Past Anesthesia/Blood Transfusion Reaction / Comment(s): no anesthesia hx for pt Smoking Status: Former smoker - Past Family History Father Additional Family Medical History / Comment(s): passes away when pt was young. heart disease runs on his side with HTN Medications and Allergies Home Medications Medication Instructions Recorded Confirmed Type Atorvastatin [Lipitor] 40 mg PO HS 90 Days #90 tab 04/12/23 05/11/23 Rx Allergies Allergy/AdvReac Type Severity Reaction Status Date / Time ampicillin Allergy Rash/Hives Verified 05/11/23 05:57 Penicillins Allergy Rash/Hives Verified 05/11/23 05:57 Physical Exam Vitals: Vital Signs Temp Pulse Pulse Resp BP Pulse Ox FiO2 05/11/23 14:00 98.4 F 96 16 100 05/11/23 13:45 96 16 100 05/11/23 13:30 98 16 100 05/11/23 13:28 70 05/11/23 13:15 96 16 100 05/11/23 13:01 100 05/11/23 13:00 97.9 F 93 16 100 100 05/11/23 06:08 98.1 F 87 20 144/60 98 Intake and Output 05/10/23 05/11/23 05/11/23 22:59 06:59 14:59 Intake Total 100 367.034 Output Total 1375 Balance 100 -1007.966 Intake: IV 100 51 NS for cardiac output 40 NS for pressure flush 9 Intake, IV Titration 316.034 Amount Albumin Human 5% 500 ml @ 250 Per Protocol IVPB ONCE ONE Rx#:[id number] Insulin Regular 100 unit 0.034 In Sodium Chloride 0.9% 100 ml @ Per Protocol IV .Q0M [facility] Rx#:[id number] Insulin Regular 100 unit 2 In Sodium Chloride 0.9% 100 ml @ Per Protocol IV ONCE ONE Rx#:[id number] Lactated Ringers 1,000 ml 50 @ 50 mls/hr IV .Q20H [facility] Rx#:[id number] propofoL 1,000 mg In 14 Empty Bag 1 bag @ Titrate IV .Q0M [facility] Rx#: [id number] Output: Chest Tube Drainage 85 Left Pleural/Mediastinal 85 Urine 890 Estimated Blood Loss 400 Other: Voiding Method Indwelling Catheter Weight 78.2 kg ABP, PAP, CO, CI - Last 8 Hours Arterial Blood Pressure 124/73 Arterial Blood Pressure 120/71 Arterial Blood Pressure 121/72 Arterial Blood Pressure 108/63 Arterial Blood Pressure 100/61 Pulmonary Artery Pressure 29/16 Pulmonary Artery Pressure 30/18 Pulmonary Artery Pressure 28/17 Pulmonary Artery Pressure 22/13 Pulmonary Artery Pressure 27/18 Cardiac Output 4.3 Cardiac Output 4.2 Cardiac Index 2.3 Cardiac Index 2.3 GENERAL EXAM: Intubated, sedated 53-year-old male, comfortable in no apparent distress. HEAD: Normocephalic. EYES: Sluggish reaction of pupils, equal size. NOSE: Clear with pink turbinates. THROAT: Oral endotracheal and gastric tube secured in place. No erythema or exudates. NECK: No masses, no JVD. CHEST: Sternal dressing dry and intact. Mediastinal and left pleural chest tubes in place. LUNGS: Equal air entry with no crackles, wheeze, rhonchi or dullness. CVS: S1 and S2 normal with no audible murmur, regular rhythm. ABDOMEN: No hepatosplenomegaly, normal bowel sounds, no guarding or rigidity. SPINE: No scoliosis or deformity SKIN: No rashes CENTRAL NERVOUS SYSTEM: No focal deficits, tone is normal in all 4 extremities. EXTREMITIES: Estefani secured in place there is no peripheral edema. No clubbing, no cyanosis. Peripheral pulses are intact. Results - Laboratory Findings CBC and BMP: 05/11/23 13:14 05/11/23 13:14 ABG ABG pH 7.38 (7.35-7.45) 05/11/23 13:14 ABG pCO2 41 mmHg (35-45) 05/11/23 13:14 ABG pO2 278 mmHg (83-108) H 05/11/23 13:14 ABG O2 Saturation 99.7 % (94-97) H 05/11/23 13:14 PT/INR, D-dimer PT 12.4 sec (10.0-12.5) 05/11/23 13:14 INR 1.2 (<1.2) H 05/11/23 13:14 Abnormal lab findings: Abnormal Labs 05/10/23 05/11/23 05/11/23 08:01 06:35 13:05 WBC RBC Hgb Hct Plt Count Neutrophils # INR ABG pO2 ABG Total CO2 ABG O2 Saturation Chloride BUN Creatinine Glucose POC Glucose (mg/dL) 180 H 130 H Magnesium ALT Total Protein Albumin Crossmatch See Detail 05/11/23 05/11/23 05/11/23 13:14 13:14 13:14 WBC 14.0 H RBC 3.66 L Hgb 11.4 L D Hct 32.9 L Plt Count 149 L Neutrophils # 12.1 H INR 1.2 H ABG pO2 ABG Total CO2 ABG O2 Saturation Chloride 111 H BUN 6 L Creatinine 0.48 L Glucose 114 H POC Glucose (mg/dL) Magnesium 3.2 H ALT 65 H Total Protein 4.7 L Albumin 2.9 L Crossmatch 05/11/23 05/11/23 13:14 14:07 WBC RBC Hgb Hct Plt Count Neutrophils # INR ABG pO2 278 H ABG Total CO2 26 H ABG O2 Saturation 99.7 H Chloride BUN Creatinine Glucose POC Glucose (mg/dL) 130 H Magnesium ALT Total Protein Albumin Crossmatch - Diagnostic Findings Chest x-ray: image reviewed Assessment and Plan Assessment: Dyspnea secondary to bicuspid aortic valve with stenosis. Status post aortic valve replacement with an Inspiris bovine valve prosthesis and aortic root enlargement and left atrial appendage ligation. Postoperative day #0 History of hypertension History of hyperlipidemia History of daily alcohol use Plan: The patient was seen and evaluated Chest x-ray, ABGs, labs and medications reviewed Appropriate ventilator changes made Will plan for early extubation protocol if tolerated Continue bronchodilators Heparin for DVT prophylaxis We will continue to follow and make further recommendations based on his clinical status I have personally seen and examined the patient, performed the documentation and the assessment and plan as written. Number of minutes spent on the visit: 20.
[2023-05-11] MEDS: DEXMEDETOMIDINE/0.9% NACL(PMX) 400 MCG in EMPTY BAG 1 BAG IV SCH (14:46)
--- NOTE | 2023-05-11 14:59 | P.ANPRN ---
Procedure Note - Anesthesia - Invasive Line Right Date of Procedure: 05/11/23 Location of Patient: PreOp Preparation: Sterile Prep, Sterile Dressing Central Line Location: Internal Jugular Ultrasound Used: Yes Purpose - Visualization and Identification of Vasculature: Yes Image Stored and Saved: Yes Narrative: Central line placement per sterile protocol utilized.Informed consent obtained.Right Internal jugular vein cannulated under aseptic precautions. 3cc 1% lidocaine infiltrated initially after cleaning with iodine based prep and draping. Ultrasound used to locate the vein and Seldinger technique used. 9Fr introduced sheath inserted and after the finding the needle with spray pilot needle/catheter. The introducer sheath was sutured in place. After the insertion of PA Catheter the insertion site was dressed with biopatch and tegaderm. Patient tolerated the procedure well. Right [place] Time Out Performed: Yes Date of Procedure: 05/11/23 Location of Patient: PreOp Preparation: Sterile Prep, Sterile Dressing [place] Line Location: Internal Jugular Narrative: Central line placement per sterile protocol utilized. 8Ff PA catheter threaded through the Right IJ introducer sheath under asepsis with continuous waveform monitoring. Catheter at 48 cms imra. - SUKHJINDER Intraop Pre Bypass SUKHJINDER Intraop - Anesthesia Indication: Aortic valve replacement Date of Procedure: 05/11/23 Pre-operative Diagnosis: Severe aortic stenosis Post-operative Diagnosis: Severe aortic stenosis status post aortic valve replacement Surgeon: Yevgeniy Quevedo Ejection Fraction: Normal (55-60%) Regional Wall Motion Abnormalities: None Left Ventricle Hypertrophy: Yes (Mild) R. Ventricle Function: Normal Anatomy: Other (Bicuspid aortic valve with diffusion of the left and right coronary cusps) Aortic Stenosis: Severe (Valve area 0.8 cm peak gradient 74 mmHg mean gradient 38 mmHg) Aortic Regurgitation: None Mitral Stenosis: None Mitral Regurgitation: Trace Tricuspid Stenosis: None Tricuspid Regurgitation: Trace Pulmonic Stenosis: None Pulmonic Regurgitation: None R. Atrial Dilation: No R. Atrial PFO: No L. Atrial Dilation: No (Small peer fall with left to right shunt seen) Aortic Dissection: No Aortic Calcification: None Plural Effusion: None (Pericardial effusion of 1.2 cm noted.) - SUKHJINDER Intraop Post Bypass SUKHJINDER Intraop Post Bypass Procedure Performed: Aortic valve replacement R. Ventricle Function: Normal Aortic Valve: Prosthetic aortic valve seen in situ. Appears to be seated about. Prosthetic valve transvalvular gradient is 14 mmHg peak and 8 mm of quantity mean. Mild paravalvular leak seen on the left coronary cusp area. Mitral Valve: Unchanged Tricuspid: Unchanged Pulmonic: Unchanged
[2023-05-11 15:17] LABS: Glucose,Whole Blood 156 mg/dL (70-110)
[2023-05-11 16:14] LABS: Glucose,Whole Blood 165 mg/dL (70-110)
[2023-05-11] MEDS: ALBUMIN HUMAN 25% 50 ML IV ONE (16:16)
[2023-05-11] MEDS: ALBUMIN HUMAN 5% 500 ML IVPB ONE (16:16)
[2023-05-11] MEDS: PROTAMINE SULFATE 250 MG in EMPTY BAG 1 BAG IV ONE (16:17)
[2023-05-11] MEDS: ceFAZolin 1,000 MG in SODIUM CHLORIDE 0.9% IRRIGATIO 1,000 ML IRRIGATION ONE (16:17)
[2023-05-11] MEDS: CARDIOPLEGIC SOLN (K+ 16 MEQ/L 1,000 ML with SODIUM BICARB (1 MEQ/ML) 20 ML, LIDOCAINE ... PERFUSION ONE (16:17)
[2023-05-11] MEDS: SODIUM CHLORIDE 0.9% 1,000 ML IV ONE (16:17)
[2023-05-11] MEDS: PHENYLEPHRINE 40 MG in SODIUM CHLORIDE 0.9% 250 ML IV ONE (16:18)
[2023-05-11] MEDS: NOREPINEPHRINE 4 MG in SODIUM CHLORIDE 0.9% 250 ML IV ONE (16:18)
[2023-05-11] MEDS: propofoL 1,000 MG/100 ML VIAL IV ONE (16:18)
[2023-05-11] MEDS: INSULIN REGULAR 100 UNIT in SODIUM CHLORIDE 0.9% 100 ML IV ONE (16:19)
[2023-05-11] MEDS: CLEVIDIPINE BUTYRATE 25 MG in EMPTY BAG 1 BAG IV ONE (16:19)
[2023-05-11] MEDS: MAGNESIUM SULFATE 16.24 MEQ in EMPTY SYRINGE 1 SYR IV ONE (16:19)
[2023-05-11] MEDS: HEPARIN SODIUM,PORCINE (1 ML) 5,000 UNIT in SODIUM CHLORIDE 0.9% 500 ML 500 ML IV ONE (16:19)
[2023-05-11] MEDS: NITROGLYCERIN-D5W PMX 50 MG in DEXTROSE/WATER 1 250ML.BAG IV ONE (16:19)
[2023-05-11] MEDS: TRANEXAMIC ACID 2,000 MG in SODIUM CHLORIDE 0.9% 80 ML IV ONE (16:20)
[2023-05-11 16:23] LABS: Basophils % (A) 0 %; Eosinophils % (A) 0 %; HCT 32.3 % (39.0-53.0); HGB 11.2 gm/dL (13.0-17.5); Lymphocytes % (A) 6 %; MCH 31.4 pg (25.0-35.0); MCHC 34.7 g/dL (31.0-37.0); MCV 90.3 fL (80.0-100.0); Mean Platelet Volume 8.4; Monocytes # (A) 0.9 k/uL (0-1.0); Monocytes % (A) 5 %; Neutrophils # (A) 16.1 k/uL (1.3-7.7); Neutrophils % (A) 89 %; Platelet Count 193 k/uL (150-450); RBC 3.58 m/uL (4.30-5.90); RDW 12.2 % (11.5-15.5); WBC 18.1 k/uL (3.8-10.6)
[2023-05-11] MEDS: HEPARIN SODIUM,PORCINE 5,000 UNIT/ML 1 ML VIAL SQ SCH (16:28)
[2023-05-11 17:12] LABS: Glucose,Whole Blood 152 mg/dL (70-110)
[2023-05-11 17:56] LABS: ABG Base Excess -0.6 mmol/L; ABG HCO3 24 mmol/L (21-25); ABG Oxygen Saturation 99.6 % (94-97); ABG PCO2 40 mmHg (35-45); ABG PH 7.39 (7.35-7.45); ABG PO2 141 mmHg (83-108); ABG TCO2 26 mmol/L (19-24)
[2023-05-11 18:07] LABS: Glucose,Whole Blood 140 mg/dL (70-110)
[2023-05-11 19:06] LABS: Glucose,Whole Blood 141 mg/dL (70-110)
[2023-05-11 19:13] LABS: Basophils % (A) 0 %; Eosinophils % (A) 0 %; HCT 32.4 % (39.0-53.0); HGB 11.4 gm/dL (13.0-17.5); Lymphocytes # (A) 0.4 k/uL (1.0-4.8); Lymphocytes % (A) 3 %; MCH 31.5 pg (25.0-35.0); MCHC 35.1 g/dL (31.0-37.0); MCV 89.8 fL (80.0-100.0); Mean Platelet Volume 8.7; Monocytes # (A) 0.6 k/uL (0-1.0); Monocytes % (A) 4 %; Neutrophils # (A) 14.2 k/uL (1.3-7.7); Neutrophils % (A) 93 %; Platelet Count 186 k/uL (150-450); RBC 3.61 m/uL (4.30-5.90); RDW 12.2 % (11.5-15.5); WBC 15.3 k/uL (3.8-10.6)
[2023-05-11 19:54] LABS: Glucose,Whole Blood 141 mg/dL (70-110)
[2023-05-11] MEDS: ATORVASTATIN 40 MG TAB PO SCH (20:03)
[2023-05-11] MEDS: SENNOSIDES-DOCUSATE SODIUM 1 EACH TAB PO SCH (20:03)
[2023-05-11 21:03] LABS: Glucose,Whole Blood 133 mg/dL (70-110)
[2023-05-11] MEDS: METOPROLOL TARTRATE 25 MG TAB PO STA (21:26)
[2023-05-11] MEDS: KETOROLAC 15 MG/ML 1 ML VIAL IVP STA (21:27)
[2023-05-11 22:07] LABS: Glucose,Whole Blood 137 mg/dL (70-110)
[2023-05-11 23:01] LABS: Glucose,Whole Blood 128 mg/dL (70-110)
[2023-05-12 00:03] LABS: Glucose,Whole Blood 118 mg/dL (70-110)
[2023-05-12 01:07] LABS: Glucose,Whole Blood 121 mg/dL (70-110)
[2023-05-12 01:25] LABS: Basophils % (A) 0 %; Eosinophils % (A) 0 %; HCT 31.8 % (39.0-53.0); HGB 11.1 gm/dL (13.0-17.5); Lymphocytes # (A) 0.9 k/uL (1.0-4.8); Lymphocytes % (A) 6 %; MCH 31.4 pg (25.0-35.0); MCHC 34.8 g/dL (31.0-37.0); MCV 90.2 fL (80.0-100.0); Mean Platelet Volume 8.5; Monocytes % (A) 7 %; Neutrophils % (A) 87 %; Platelet Count 196 k/uL (150-450); RBC 3.52 m/uL (4.30-5.90); RDW 12.2 % (11.5-15.5)
[2023-05-12 01:36] LABS: Ionized Calcium 4.7 mg/dL (4.5-5.3)
[2023-05-12 01:44] LABS: ALT 55 U/L (4-49); AST 49 U/L (17-59); African American GFR (CKD) >90 (>60 ml/min/1.73 sqM); Albumin 3.6 g/dL (3.5-5.0); Alkaline Phosphatase 48 U/L (38-126); Anion Gap 6 mmol/L; Blood Urea Nitrogen 8 mg/dL (9-20); Calcium 8.5 mg/dL (8.4-10.2); Carbon Dioxide 24 mmol/L (22-30); Chloride 107 mmol/L (98-107); Glucose 110 mg/dL (74-99); Magnesium 2.2 mg/dL (1.6-2.3); Non-African American GFR(CKD) >90 (>60 ml/min/1.73 sqM); Potassium 4.3 mmol/L (3.5-5.1); Sodium 137 mmol/L (137-145); Total Bilirubin 1.2 mg/dL (0.2-1.3); Total Protein 5.4 g/dL (6.3-8.2)
[2023-05-12 02:01] LABS: Glucose,Whole Blood 123 mg/dL (70-110)
[2023-05-12 03:06] LABS: Glucose,Whole Blood 129 mg/dL (70-110)
[2023-05-12 04:06] LABS: Glucose,Whole Blood 126 mg/dL (70-110)
[2023-05-12 04:54] LABS: Glucose,Whole Blood 118 mg/dL (70-110)
[2023-05-12 06:16] LABS: Glucose,Whole Blood 122 mg/dL (70-110)
[2023-05-12] MEDS: METOPROLOL TARTRATE 25 MG TAB PO SCH ×2 (06:27→13:32)
[2023-05-12] MEDS: KETOROLAC 15 MG/ML 1 ML VIAL IVP SCH (07:00)
[2023-05-12 07:08] LABS: Glucose,Whole Blood 124 mg/dL (70-110)
[2023-05-12] MEDS: PANTOPRAZOLE 40 MG/10 ML VIAL IVP SCH (08:07)
[2023-05-12] MEDS: ONDANSETRON 4 MG/2 ML VIAL IVP PRN (08:07)
[2023-05-12] MEDS: ALBUMIN HUMAN 5% 250 ML in EMPTY BAG 1 BAG IVPB ONE (08:22)
[2023-05-12] MEDS: ASPIRIN 325 MG TAB PO SCH (08:48)
[2023-05-12] MEDS: CLOPIDOGREL 75 MG TAB PO SCH (08:49)
[2023-05-12] MEDS ORDERED: METOPROLOL TARTRATE 12.5 MG TAB PO SCH (09:00)
[2023-05-12] MEDS ORDERED: MAGNESIUM HYDROXIDE 2,400 MG/30 ML CUP PO PRN (09:00)
[2023-05-12 09:06] LABS: Glucose,Whole Blood 155 mg/dL (70-110)
--- NOTE | 2023-05-12 09:08 | P.PN ---
Subjective Progress Note Date: 05/12/23 Principal diagnosis: Calcific bicuspid aortic valve stenosis. Previous medical history of hypertension, hyperlipidemia, syncope, previous tobacco dependence, mild COPD, ETOH use with greater than 8 drinks per week, occasional marijuana use, and family history of premature coronary artery disease POD #1 aortic valve replacement with 27 mm Dunne Inspiris bovine valve prosthesis with aortic root enlargement with woven dacron patch (Bill Dacosta technique) and ligation of the left atrial appendage with 35mm AtriCure clamp. SUKHJINDER by anesthesia. Epiaortic ultrasonography Postoperative acute blood loss anemia, expected given hemodilution Leukocytosis, likely reactive The patient was seen and examined this morning with Dr. Gonzalez sitting up in recliner in the intensive care unit in no acute distress. He was successfully extubated yesterday at 1810. Does complain of postsurgical pain which is mostly controlled on current medication regimen, denies shortness of breath although does state it hurts to take a deep breath. Remains in sinus rhythm, hemodynamically stable on no inotropes or pressors. Currently on 2 L nasal cannula with oxygen saturation in the mid 90s, only able to achieve 500 mL on his incentive spirometry. Chest x-ray, labs reviewed. Right internal jugular [place]/Cordis, right radial arterial line, mediastinal/left pleural chest tubes all remain. No other new concerns. Objective - Vital Signs Vital signs: Vital Signs Temp 99.5 F 05/12/23 08:00 Pulse 93 05/12/23 08:43 Resp 19 05/12/23 08:00 BP 95/62 05/12/23 08:00 Pulse Ox 94 L 05/12/23 08:30 FiO2 50 05/11/23 16:50 Intake & Output 05/11/23 05/12/23 05/12/23 18:59 06:59 18:59 Intake Total 1175.810 888.410 648 Output Total 2250 650 130 Balance -1074.190 238.410 518 Weight 80.8 kg Intake: IV 167 808 108 Lactated Ringers 1,000 ml 550 70 @ 20 mls/hr IV .Q24H [facility] Rx#:[id number] NS for cardiac output 120 150 20 NS for pressure flush 45 108 18 Intake, IV Titration 1008.810 80.410 300 Amount ACETAMINOPHEN IV (For NPO 100 ) 1,000 mg In Empty Bag 1 bag @ 400 mls/hr IVPB Q6HR [facility] Rx#:[id number] Albumin Human 5% 250 ml 250 In Empty Bag 1 bag @ 250 mls/hr IVPB ONCE ONE Rx#: [id number] Albumin Human 5% 250 ml 250 In Empty Bag 1 bag @ 250 mls/hr IVPB Q1HR PRN Rx#: [id number] Albumin Human 5% 500 ml @ 250 Per Protocol IVPB ONCE ONE Rx#:[id number] Dexmedetomidine/0.9% NaCl 32.893 (Pmx) 400 mcg In Empty Bag 1 bag @ Titrate IV . Q0M [facility] Rx#:[id number] Insulin Regular 100 unit 10.101 30.410 In Sodium Chloride 0.9% 100 ml @ Per Protocol IV .Q0M [facility] Rx#:[id number] Insulin Regular 100 unit 2 In Sodium Chloride 0.9% 100 ml @ Per Protocol IV ONCE ONE Rx#:[id number] Lactated Ringers 1,000 ml 250 50 @ 20 mls/hr IV .Q24H [facility] Rx#:[id number] ceFAZolin 2 gm In Sodium 50 50 Chloride 0.9% 50 ml @ 100 mls/hr IVPB Q8HR [facility] Rx# :[id number] propofoL 1,000 mg In 63.816 Empty Bag 1 bag @ Titrate IV .Q0M [facility] Rx#: [id number] Oral 240 Output: Chest Tube Drainage 250 160 60 Left Pleural/Mediastinal 250 160 60 Gastric Drainage 250 Urine 1350 490 70 Estimated Blood Loss 400 Other: Voiding Method Indwelling Catheter Indwelling Catheter ABP, PAP, CO, CI - Last Documented Arterial Blood Pressure 92/52 Pulmonary Artery Pressure 29/15 Cardiac Output 4.0 Cardiac Index 2.2 - Exam CONSTITUTIONAL: Appears mostly comfortable, cooperative, no acute distress RESPIRATORY: Lungs sounds diminished bilaterally. Respirations even, nonlabored. Currently on 2 L nasal cannula with oxygen saturation 95%. Able to achieve 500 mL on incentive spirometry. Strong cough. CARDIOVASCULAR: S1, S2 present. Regular rate and rhythm, sinus rhythm on telemetry. Sternum stable. Palpable peripheral pulses bilaterally. No edema present. No calf pain or tenderness noted. Heart hugger in place with patient demonstrating appropriate use. Antiembolism stockings, SCDs present. GASTROINTESTINAL: Abdomen soft, nontender, nondistended. Hypoactive bowel sounds present 4 quadrants. Tolerating clear liquids. Positive flatus GENITOURINARY: Matthew present draining clear, yellow urine. Output overnight 20-40 mL per hour INTEGUMENTARY: Skin is warm and dry with evidence of good perfusion. Anterior chest incision well approximated and covered with dry intact dressing NEUROLOGIC: Cranial nerves II through XII intact MUSKULOSKELETAL: Able to move all extremities, strength equal bilaterally PSYCHIATRIC: Alert and oriented to person place and time, appropriate affect, intact judgment and insight INVASIVE LINES AND TUBES: Mediastinal/left pleural chest tubes present and connected to wall suction, no air leaks present, 90 mL serosanguineous drainage overnight, 450 mL since surgery. A/V epicardial pacemaker wires present, grounded. Right internal jugular [place]/Cordis, right radial arterial line present. Last CO/CI 4.0/2.2, PA , CVP 11. - Allied health notes Allied health notes reviewed: nursing - Labs CBC & Chem 7: 05/12/23 01:06 05/12/23 01:06 Labs: Abnormal Lab Results - Last 24 Hours (Table) 05/10/23 05/11/23 05/11/23 Range/Units 08:01 08:32 09:20 WBC (3.8-10.6) k/uL RBC (4.30-5.90) m/uL Hgb (13.0-17.5) gm/dL Hct (39.0-53.0) % Plt Count (150-450) k/uL Neutrophils # (1.3-7.7) k/uL Lymphocytes # (1.0-4.8) k/uL INR (<1.2) ABG pH 7.34 L (7.35-7.45) ABG pCO2 (35-45) mmHg ABG pO2 336 H 213 H (83-108) mmHg ABG Total CO2 (19-24) mmol/L ABG O2 Saturation >99.4 H >99.4 H (94-97) % ABG Hematocrit (34.0-46.0) % ABG Potassium (3.4-4.5) mmol/L ABG Ionized Calcium 1.2 L* 1.2 L* (4.5-5.3) mg/dL ABG Glucose 156 H 136 H (75-99) mg/dL ABG Lactic Acid 1.7 H (0.5-1.6) mmol/L Hemoglobin 12.9 L (13.0-17.5) gm/dL Chloride (98-107) mmol/L BUN (9-20) mg/dL Creatinine (0.66-1.25) mg/dL Glucose (74-99) mg/dL POC Glucose (mg/dL) (70-110) mg/dL Magnesium (1.6-2.3) mg/dL ALT (4-49) U/L Total Protein (6.3-8.2) g/dL Albumin (3.5-5.0) g/dL Arterial Blood Potassium (3.4-4.5) mmol/L Arterial Blood Glucose 156 H 136 H (75-99) mg/dL Crossmatch See Detail 05/11/23 05/11/23 05/11/23 Range/Units 09:54 10:57 13:05 WBC (3.8-10.6) k/uL RBC (4.30-5.90) m/uL Hgb (13.0-17.5) gm/dL Hct (39.0-53.0) % Plt Count (150-450) k/uL Neutrophils # (1.3-7.7) k/uL Lymphocytes # (1.0-4.8) k/uL INR (<1.2) ABG pH (7.35-7.45) ABG pCO2 34 L (35-45) mmHg ABG pO2 >420 H (83-108) mmHg ABG Total CO2 (19-24) mmol/L ABG O2 Saturation >99.4 H 97.6 H (94-97) % ABG Hematocrit 29 L 29 L (34.0-46.0) % ABG Potassium 4.7 H (3.4-4.5) mmol/L ABG Ionized Calcium 1.0 L* 1.0 L* (4.5-5.3) mg/dL ABG Glucose 106 H 164 H (75-99) mg/dL ABG Lactic Acid 1.8 H 2.8 H* (0.5-1.6) mmol/L Hemoglobin 9.5 L 9.4 L (13.0-17.5) gm/dL Chloride (98-107) mmol/L BUN (9-20) mg/dL Creatinine (0.66-1.25) mg/dL Glucose (74-99) mg/dL POC Glucose (mg/dL) 130 H (70-110) mg/dL Magnesium (1.6-2.3) mg/dL ALT (4-49) U/L Total Protein (6.3-8.2) g/dL Albumin (3.5-5.0) g/dL Arterial Blood Potassium 4.7 H (3.4-4.5) mmol/L Arterial Blood Glucose 106 H 164 H (75-99) mg/dL Crossmatch 05/11/23 05/11/23 05/11/23 Range/Units 13:14 13:14 13:14 WBC 14.0 H (3.8-10.6) k/uL RBC 3.66 L (4.30-5.90) m/uL Hgb 11.4 L D (13.0-17.5) gm/dL Hct 32.9 L (39.0-53.0) % Plt Count 149 L (150-450) k/uL Neutrophils # 12.1 H (1.3-7.7) k/uL Lymphocytes # (1.0-4.8) k/uL INR 1.2 H (<1.2) ABG pH (7.35-7.45) ABG pCO2 (35-45) mmHg ABG pO2 (83-108) mmHg ABG Total CO2 (19-24) mmol/L ABG O2 Saturation (94-97) % ABG Hematocrit (34.0-46.0) % ABG Potassium (3.4-4.5) mmol/L ABG Ionized Calcium (4.5-5.3) mg/dL ABG Glucose (75-99) mg/dL ABG Lactic Acid (0.5-1.6) mmol/L Hemoglobin (13.0-17.5) gm/dL Chloride 111 H (98-107) mmol/L BUN 6 L (9-20) mg/dL Creatinine 0.48 L (0.66-1.25) mg/dL Glucose 114 H (74-99) mg/dL POC Glucose (mg/dL) (70-110) mg/dL Magnesium 3.2 H (1.6-2.3) mg/dL ALT 65 H (4-49) U/L Total Protein 4.7 L (6.3-8.2) g/dL Albumin 2.9 L (3.5-5.0) g/dL Arterial Blood Potassium (3.4-4.5) mmol/L Arterial Blood Glucose (75-99) mg/dL Crossmatch 05/11/23 05/11/23 05/11/23 Range/Units 13:14 14:07 15:15 WBC (3.8-10.6) k/uL RBC (4.30-5.90) m/uL Hgb (13.0-17.5) gm/dL Hct (39.0-53.0) % Plt Count (150-450) k/uL Neutrophils # (1.3-7.7) k/uL Lymphocytes # (1.0-4.8) k/uL INR (<1.2) ABG pH (7.35-7.45) ABG pCO2 (35-45) mmHg ABG pO2 278 H (83-108) mmHg ABG Total CO2 26 H (19-24) mmol/L ABG O2 Saturation 99.7 H (94-97) % ABG Hematocrit (34.0-46.0) % ABG Potassium (3.4-4.5) mmol/L ABG Ionized Calcium (4.5-5.3) mg/dL ABG Glucose (75-99) mg/dL ABG Lactic Acid (0.5-1.6) mmol/L Hemoglobin (13.0-17.5) gm/dL Chloride (98-107) mmol/L BUN (9-20) mg/dL Creatinine (0.66-1.25) mg/dL Glucose (74-99) mg/dL POC Glucose (mg/dL) 130 H 156 H (70-110) mg/dL Magnesium (1.6-2.3) mg/dL ALT (4-49) U/L Total Protein (6.3-8.2) g/dL Albumin (3.5-5.0) g/dL Arterial Blood Potassium (3.4-4.5) mmol/L Arterial Blood Glucose (75-99) mg/dL Crossmatch 05/11/23 05/11/23 05/11/23 Range/Units 16:10 16:12 17:10 WBC 18.1 H (3.8-10.6) k/uL RBC 3.58 L (4.30-5.90) m/uL Hgb 11.2 L (13.0-17.5) gm/dL Hct 32.3 L (39.0-53.0) % Plt Count (150-450) k/uL Neutrophils # 16.1 H (1.3-7.7) k/uL Lymphocytes # (1.0-4.8) k/uL INR (<1.2) ABG pH (7.35-7.45) ABG pCO2 (35-45) mmHg ABG pO2 (83-108) mmHg ABG Total CO2 (19-24) mmol/L ABG O2 Saturation (94-97) % ABG Hematocrit (34.0-46.0) % ABG Potassium (3.4-4.5) mmol/L ABG Ionized Calcium (4.5-5.3) mg/dL ABG Glucose (75-99) mg/dL ABG Lactic Acid (0.5-1.6) mmol/L Hemoglobin (13.0-17.5) gm/dL Chloride (98-107) mmol/L BUN (9-20) mg/dL Creatinine (0.66-1.25) mg/dL Glucose (74-99) mg/dL POC Glucose (mg/dL) 165 H 152 H (70-110) mg/dL Magnesium (1.6-2.3) mg/dL ALT (4-49) U/L Total Protein (6.3-8.2) g/dL Albumin (3.5-5.0) g/dL Arterial Blood Potassium (3.4-4.5) mmol/L Arterial Blood Glucose (75-99) mg/dL Crossmatch 05/11/23 05/11/23 05/11/23 Range/Units 17:53 18:05 19:04 WBC (3.8-10.6) k/uL RBC (4.30-5.90) m/uL Hgb (13.0-17.5) gm/dL Hct (39.0-53.0) % Plt Count (150-450) k/uL Neutrophils # (1.3-7.7) k/uL Lymphocytes # (1.0-4.8) k/uL INR (<1.2) ABG pH (7.35-7.45) ABG pCO2 (35-45) mmHg ABG pO2 141 H (83-108) mmHg ABG Total CO2 26 H (19-24) mmol/L ABG O2 Saturation 99.6 H (94-97) % ABG Hematocrit (34.0-46.0) % ABG Potassium (3.4-4.5) mmol/L ABG Ionized Calcium (4.5-5.3) mg/dL ABG Glucose (75-99) mg/dL ABG Lactic Acid (0.5-1.6) mmol/L Hemoglobin (13.0-17.5) gm/dL Chloride (98-107) mmol/L BUN (9-20) mg/dL Creatinine (0.66-1.25) mg/dL Glucose (74-99) mg/dL POC Glucose (mg/dL) 140 H 141 H (70-110) mg/dL Magnesium (1.6-2.3) mg/dL ALT (4-49) U/L Total Protein (6.3-8.2) g/dL Albumin (3.5-5.0) g/dL Arterial Blood Potassium (3.4-4.5) mmol/L Arterial Blood Glucose (75-99) mg/dL Crossmatch 05/11/23 05/11/23 05/11/23 Range/Units 19:05 19:53 21:01 WBC 15.3 H (3.8-10.6) k/uL RBC 3.61 L (4.30-5.90) m/uL Hgb 11.4 L (13.0-17.5) gm/dL Hct 32.4 L (39.0-53.0) % Plt Count (150-450) k/uL Neutrophils # 14.2 H (1.3-7.7) k/uL Lymphocytes # 0.4 L (1.0-4.8) k/uL INR (<1.2) ABG pH (7.35-7.45) ABG pCO2 (35-45) mmHg ABG pO2 (83-108) mmHg ABG Total CO2 (19-24) mmol/L ABG O2 Saturation (94-97) % ABG Hematocrit (34.0-46.0) % ABG Potassium (3.4-4.5) mmol/L ABG Ionized Calcium (4.5-5.3) mg/dL ABG Glucose (75-99) mg/dL ABG Lactic Acid (0.5-1.6) mmol/L Hemoglobin (13.0-17.5) gm/dL Chloride (98-107) mmol/L BUN (9-20) mg/dL Creatinine (0.66-1.25) mg/dL Glucose (74-99) mg/dL POC Glucose (mg/dL) 141 H 133 H (70-110) mg/dL Magnesium (1.6-2.3) mg/dL ALT (4-49) U/L Total Protein (6.3-8.2) g/dL Albumin (3.5-5.0) g/dL Arterial Blood Potassium (3.4-4.5) mmol/L Arterial Blood Glucose (75-99) mg/dL Crossmatch 05/11/23 05/11/23 05/12/23 Range/Units 22:06 23:00 00:01 WBC (3.8-10.6) k/uL RBC (4.30-5.90) m/uL Hgb (13.0-17.5) gm/dL Hct (39.0-53.0) % Plt Count (150-450) k/uL Neutrophils # (1.3-7.7) k/uL Lymphocytes # (1.0-4.8) k/uL INR (<1.2) ABG pH (7.35-7.45) ABG pCO2 (35-45) mmHg ABG pO2 (83-108) mmHg ABG Total CO2 (19-24) mmol/L ABG O2 Saturation (94-97) % ABG Hematocrit (34.0-46.0) % ABG Potassium (3.4-4.5) mmol/L ABG Ionized Calcium (4.5-5.3) mg/dL ABG Glucose (75-99) mg/dL ABG Lactic Acid (0.5-1.6) mmol/L Hemoglobin (13.0-17.5) gm/dL Chloride (98-107) mmol/L BUN (9-20) mg/dL Creatinine (0.66-1.25) mg/dL Glucose (74-99) mg/dL POC Glucose (mg/dL) 137 H 128 H 118 H (70-110) mg/dL Magnesium (1.6-2.3) mg/dL ALT (4-49) U/L Total Protein (6.3-8.2) g/dL Albumin (3.5-5.0) g/dL Arterial Blood Potassium (3.4-4.5) mmol/L Arterial Blood Glucose (75-99) mg/dL Crossmatch 05/12/23 05/12/23 05/12/23 Range/Units 01:06 01:06 01:06 WBC 15.0 H (3.8-10.6) k/uL RBC 3.52 L (4.30-5.90) m/uL Hgb 11.1 L (13.0-17.5) gm/dL Hct 31.8 L (39.0-53.0) % Plt Count (150-450) k/uL Neutrophils # 13.0 H (1.3-7.7) k/uL Lymphocytes # 0.9 L (1.0-4.8) k/uL INR (<1.2) ABG pH (7.35-7.45) ABG pCO2 (35-45) mmHg ABG pO2 (83-108) mmHg ABG Total CO2 (19-24) mmol/L ABG O2 Saturation (94-97) % ABG Hematocrit (34.0-46.0) % ABG Potassium (3.4-4.5) mmol/L ABG Ionized Calcium (4.5-5.3) mg/dL ABG Glucose (75-99) mg/dL ABG Lactic Acid (0.5-1.6) mmol/L Hemoglobin (13.0-17.5) gm/dL Chloride (98-107) mmol/L BUN 8 L (9-20) mg/dL Creatinine 0.54 L (0.66-1.25) mg/dL Glucose 110 H (74-99) mg/dL POC Glucose (mg/dL) 121 H (70-110) mg/dL Magnesium (1.6-2.3) mg/dL ALT 55 H (4-49) U/L Total Protein 5.4 L (6.3-8.2) g/dL Albumin (3.5-5.0) g/dL Arterial Blood Potassium (3.4-4.5) mmol/L Arterial Blood Glucose (75-99) mg/dL Crossmatch 05/12/23 05/12/23 05/12/23 Range/Units 01:57 03:03 04:04 WBC (3.8-10.6) k/uL RBC (4.30-5.90) m/uL Hgb (13.0-17.5) gm/dL Hct (39.0-53.0) % Plt Count (150-450) k/uL Neutrophils # (1.3-7.7) k/uL Lymphocytes # (1.0-4.8) k/uL INR (<1.2) ABG pH (7.35-7.45) ABG pCO2 (35-45) mmHg ABG pO2 (83-108) mmHg ABG Total CO2 (19-24) mmol/L ABG O2 Saturation (94-97) % ABG Hematocrit (34.0-46.0) % ABG Potassium (3.4-4.5) mmol/L ABG Ionized Calcium (4.5-5.3) mg/dL ABG Glucose (75-99) mg/dL ABG Lactic Acid (0.5-1.6) mmol/L Hemoglobin (13.0-17.5) gm/dL Chloride (98-107) mmol/L BUN (9-20) mg/dL Creatinine (0.66-1.25) mg/dL Glucose (74-99) mg/dL POC Glucose (mg/dL) 123 H 129 H 126 H (70-110) mg/dL Magnesium (1.6-2.3) mg/dL ALT (4-49) U/L Total Protein (6.3-8.2) g/dL Albumin (3.5-5.0) g/dL Arterial Blood Potassium (3.4-4.5) mmol/L Arterial Blood Glucose (75-99) mg/dL Crossmatch 05/12/23 05/12/23 05/12/23 Range/Units 04:52 06:15 07:06 WBC (3.8-10.6) k/uL RBC (4.30-5.90) m/uL Hgb (13.0-17.5) gm/dL Hct (39.0-53.0) % Plt Count (150-450) k/uL Neutrophils # (1.3-7.7) k/uL Lymphocytes # (1.0-4.8) k/uL INR (<1.2) ABG pH (7.35-7.45) ABG pCO2 (35-45) mmHg ABG pO2 (83-108) mmHg ABG Total CO2 (19-24) mmol/L ABG O2 Saturation (94-97) % ABG Hematocrit (34.0-46.0) % ABG Potassium (3.4-4.5) mmol/L ABG Ionized Calcium (4.5-5.3) mg/dL ABG Glucose (75-99) mg/dL ABG Lactic Acid (0.5-1.6) mmol/L Hemoglobin (13.0-17.5) gm/dL Chloride (98-107) mmol/L BUN (9-20) mg/dL Creatinine (0.66-1.25) mg/dL Glucose (74-99) mg/dL POC Glucose (mg/dL) 118 H 122 H 124 H (70-110) mg/dL Magnesium (1.6-2.3) mg/dL ALT (4-49) U/L Total Protein (6.3-8.2) g/dL Albumin (3.5-5.0) g/dL Arterial Blood Potassium (3.4-4.5) mmol/L Arterial Blood Glucose (75-99) mg/dL Crossmatch - Imaging and Cardiology Chest x-ray: image reviewed Assessment and Plan Assessment: Calcific bicuspid aortic valve stenosis, status post bioprosthetic aortic valve replacement with root enlargement History of hypertension Hyperlipidemia, treated, cholesterol 103, LDL 42 Recent syncope Previously undiagnosed diabetes, preoperative hemoglobin A1c 6.8% Previous tobacco dependence Mild COPD, preoperative FEV1 64% of predicted ETOH use with greater than 8 drinks per week Occasional marijuana use Family history of premature coronary artery disease Postoperative acute blood loss anemia, expected given hemodilution Leukocytosis, likely reactive Plan: Continue to maximize medical therapy with aspirin, statin, Plavix, beta-deondre. Will increase beta-deondre therapy as tolerated Wean O2 as tolerated. Encourage incentive spirometry use 10 times every hour while awake. Bronchodilators per pulmonology Increase activity, ambulate as tolerated. PT/OT/cardiac rehab consulted Will monitor daily labs and x-rays. Electrolyte replacement per protocol GI/DVT prophylaxis Insulin management per internal medicine, patient should remain on IV insulin for 48 hours, then may transition to subcutaneous per protocol Pain control with current medication regimen. Toradol added for better pain control Discontinue [place], connect Cordis to continuous CVP monitoring Continue chest tubes for another 24 hours, monitor output Continue Matthew catheter for another 24 hours, continue to record strict accurate intake and output Daily weights More recommendations to follow
--- NOTE | 2023-05-12 09:44 | XR ---
EXAMINATION TYPE: XR chest 1V portable DATE OF EXAM: 05/12/2023 5:23 AM CLINICAL INDICATION:Male, 53 years old with history of Post Operative Cardiac Surgery; COMPARISON: Chest radiographs from 05/11/2023. TECHNIQUE: XR chest 1V portable Frontal view of the chest. FINDINGS: Lungs/Pleura: Bibasilar atelectasis. No evidence for pneumothorax, pleural effusion or focal consolid ation. Pulmonary vascularity: Unremarkable. Heart/mediastinum: Cardiomediastinal silhouette is enlarged and stable. Musculoskeletal: No acute osseous pathology. Midline sternotomy wires are noted. Other findings: None Lines/Tubes: There is a Crane-Puma catheter with tip projecting over the spine. Drainage tubes with tips projecting over the mediastinum. Left thoracotomy tube is present without evidence of pneumothorax. IMPRESSION: Postsurgical changes no evidence for immediate competition. Low lung volumes.
[2023-05-12 10:21] LABS: Glucose,Whole Blood 140 mg/dL (70-110)
--- NOTE | 2023-05-12 11:39 | P.CONS ---
History of Present Illness - Reason for Consult Consult date: 05/12/23 - History of Present Illness 53 year old M with PMH of HTN, HLD, bicuspid AV stenosis, history of smoking, daily drinker presents to [facility] for elective surgery. He underwent AV replacement with Dr. Quevedo on 05/11. [facility] has been consulted for medical management of this patient. Extubated successfully on 05/11. 05/12 Patient was seen and examined. He reports well controlled chest pain at the site of incision. Able to achieve 500 cc on IS. Currently on 2L NC. NS at 20 cc/hr. Insulin drip at 3.5 units/hr. Matthew catheter in placed. Right IJ, mediastinal and left chest tube in place. CBC WBC 15, Hg 11.1, Hct 31.8. CMP BUN 8 Cr 0.54, glu 110, ALT 55, total protein 5.4. CXR done today shows swan demetrius, mediastinal and left chest tube in place with no acute process. General: non toxic, no distress, appears at stated age Derm: warm, dry Head: atraumatic, normocephalic, symmetric, R IJ Eyes: EOMI, no lid lag, anicteric sclera Mouth: no lip lesion, mucus membranes moist Cardiovascular: S1S2 reg, no murmur, heart hugger in place, mediastinal and L chest tube in place Lungs: CTA bilateral, no rhonchi, no rales , no accessory muscle use Abdominal: soft, nontender to palpation, no guarding, no appreciable organomegaly, + BS Ext: no gross muscle atrophy, no edema, no contractures Neuro: no focal neuro deficits Psych: Alert, oriented, appropriate affect Based on my assessment of this patient, this patient meets a high complexity level of care. Patient has a history of bicuspid AV stenosis status post AV replacement POD 1 with severe exacerbation or progression of disease which poses a threat to life or bodily function. Acute blood loss anemia: Expected result of surgery. Daily CBC. Transfuse if Hg < 7. Leukocytosis: Likely reactive. Monitor fever profile. No signs of active infection. Transaminitis: Possibly related to EtOH abuse. Monitor. Hypertension: Metoprolol 25 mg PO BID. Dyslipidemia: Lipitor 40 mg PO QHS. h/o EtOH abuse: Monitor for withdrawal symptoms. CODE STATUS: FULL CODE. DVT Prophylaxis: Heparin SQ GI Prophylaxis: Protonix Designated medical POA if patient is not able to make medical decisions for themselves: I have reviewed the following virtualization consultant notes: Pulmonary, CT surgery note. I have reviewed the results of the following tests: CBC, CMP. I have ordered the following tests: I have discussed the care of this patient with the following independent historian: I have independently interpreted the following test below: CXR. I have discussed the management of this patient with the following physician: This patient has a high risk of morbidity due to the following reasons: This patient meets a high level of care for the following reasons: Patient requires IV insulin which requires intensive monitoring for hypoglycemic episodes. Past Medical History Past Medical History: Hyperlipidemia, Hypertension, Syncope Additional Past Medical History / Comment(s): recent adm. for dizziness, passed out, pt states he needs a new valve, some SOB w/exertion, states he sometimes feels a flutter, was put on BP med during recent adm. 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 heart disease runs on his side with HTN Medications and Allergies Home Medications Medication Instructions Recorded Confirmed Type Atorvastatin [Lipitor] 40 mg PO HS 90 Days #90 tab 04/12/23 05/11/23 Rx Allergies Allergy/AdvReac Type Severity Reaction Status Date / Time ampicillin Allergy Rash/Hives Verified 05/11/23 05:57 Penicillins Allergy Rash/Hives Verified 05/11/23 05:57 Physical Exam Vitals: Vital Signs Temp Pulse Resp BP Pulse Ox FiO2 05/12/23 10:00 93 28 H 92/62 96 05/12/23 09:00 99 22 100/68 95 05/12/23 08:43 93 05/12/23 08:30 94 L 05/12/23 08:29 94 05/12/23 08:00 99.5 F 89 19 95/62 96 05/12/23 07:00 102 H 24 96 05/12/23 06:00 105 H 24 94/71 94 L 05/12/23 05:00 98 14 99/67 95 05/12/23 04:00 99.3 F 96 20 96 05/12/23 03:00 94 16 107/70 97 05/12/23 02:00 100 21 100/65 97 05/12/23 01:30 93 22 96 05/12/23 01:00 91 18 102/63 95 05/12/23 00:32 89 20 97 05/12/23 00:30 96 20 102/63 97 05/12/23 00:00 99.5 F 93 22 105/67 96 05/11/23 23:30 90 26 H 98 05/11/23 23:00 90 24 110/68 97 05/11/23 22:30 103 H 22 110/68 96 05/11/23 22:00 104 H 28 H 120/71 96 05/11/23 21:30 104 H 23 120/71 96 05/11/23 21:00 109 H 12 95 05/11/23 20:49 102 H 05/11/23 20:36 97 05/11/23 20:30 103 H 13 110/69 97 05/11/23 20:00 99.7 F H 93 30 H 97 05/11/23 19:45 100 23 97 05/11/23 19:30 94 24 96 05/11/23 19:15 99 31 H 97 05/11/23 19:00 100 21 97 05/11/23 18:45 105 H 17 96 05/11/23 18:30 102 H 18 98 05/11/23 18:15 103 H 27 H 97 05/11/23 18:10 97 05/11/23 18:00 100.4 F H 97 22 99 05/11/23 17:45 103 H 22 98 05/11/23 17:30 93 25 H 100 05/11/23 17:15 92 24 100 05/11/23 17:00 100.2 F H 97 18 107/64 100 05/11/23 16:50 50 05/11/23 16:45 93 22 100 05/11/23 16:30 89 20 93/66 100 05/11/23 16:15 96 18 99 05/11/23 16:00 100.0 F H 83 16 100 50 05/11/23 15:45 92 16 100 05/11/23 15:41 93 05/11/23 15:31 93 05/11/23 15:30 93 16 100 05/11/23 15:26 50 05/11/23 15:15 96 16 100 05/11/23 15:00 99.7 F H 98 16 100 05/11/23 14:45 101 H 16 100 05/11/23 14:30 93 16 100 05/11/23 14:15 95 16 100 05/11/23 14:00 98.4 F 96 16 100 05/11/23 13:45 96 16 100 05/11/23 13:30 98 16 100 05/11/23 13:28 70 05/11/23 13:15 96 16 100 05/11/23 13:01 100 05/11/23 13:00 97.9 F 93 16 100 100 Intake and Output 05/11/23 05/12/23 05/12/23 22:59 06:59 14:59 Intake Total 1113.546 583.640 710.689 Output Total 1060 325 200 Balance 53.546 258.640 510.689 Intake: IV 362 562 160 Lactated Ringers 1,000 ml 150 400 110 @ 20 mls/hr IV .Q24H DAPHNE Rx#:[id number] NS for cardiac output 140 90 20 NS for pressure flush 72 72 30 Intake, IV Titration 751.546 21.640 310.689 Amount ACETAMINOPHEN IV (For NPO 100 ) 1,000 mg In Empty Bag 1 bag @ 400 mls/hr IVPB Q6HR DAPHNE Rx#:[id number] Albumin Human 5% 250 ml 250 In Empty Bag 1 bag @ 250 mls/hr IVPB ONCE ONE Rx#: [id number] Albumin Human 5% 250 ml 250 In Empty Bag 1 bag @ 250 mls/hr IVPB Q1HR PRN Rx#: [id number] Dexmedetomidine/0.9% NaCl 32.893 (Pmx) 400 mcg In Empty Bag 1 bag @ Titrate IV . Q0M DAPHNE Rx#:[id number] Insulin Regular 100 unit 18.837 21.640 10.689 In Sodium Chloride 0.9% 100 ml @ Per Protocol IV .Q0M DAPHNE Rx#:[id number] Lactated Ringers 1,000 ml 250 @ 20 mls/hr IV .Q24H DAPHNE Rx#:[id number] ceFAZolin 2 gm In Sodium 50 50 Chloride 0.9% 50 ml @ 100 mls/hr IVPB Q8HR DAPHNE Rx# :[id number] propofoL 1,000 mg In 49.816 Empty Bag 1 bag @ Titrate IV .Q0M DAPHNE Rx#: [id number] Oral 240 Output: Chest Tube Drainage 220 90 90 Left Pleural/Mediastinal 220 90 90 Gastric Drainage 250 Urine 590 235 110 Other: Voiding Method Indwelling Catheter Indwelling Catheter Indwelling Catheter Weight 80.8 kg ABP, PAP, CO, CI - Last 8 Hours Arterial Blood Pressure 97/52 Arterial Blood Pressure 119/62 Arterial Blood Pressure 92/52 Arterial Blood Pressure 110/54 Arterial Blood Pressure 116/58 Arterial Blood Pressure 123/64 Arterial Blood Pressure 113/60 Pulmonary Artery Pressure 29/15 Pulmonary Artery Pressure 23/15 Pulmonary Artery Pressure 36/29 Pulmonary Artery Pressure 31/26 Pulmonary Artery Pressure 34/26 Cardiac Output 4.0 Cardiac Output 5.1 Cardiac Output 3.9 Cardiac Index 2.2 Cardiac Index 2.8 Cardiac Index 2.1 Results CBC & Chem 7: 05/12/23 01:06 05/12/23 01:06 Labs: Abnormal Lab Results - Last 24 Hours (Table) 05/10/23 05/11/23 05/11/23 Range/Units 08:01 08:32 09:20 WBC (3.8-10.6) k/uL RBC (4.30-5.90) m/uL Hgb (13.0-17.5) gm/dL Hct (39.0-53.0) % Plt Count (150-450) k/uL Neutrophils # (1.3-7.7) k/uL Lymphocytes # (1.0-4.8) k/uL INR (<1.2) ABG pH 7.34 L (7.35-7.45) ABG pCO2 (35-45) mmHg ABG pO2 336 H 213 H (83-108) mmHg ABG Total CO2 (19-24) mmol/L ABG O2 Saturation >99.4 H >99.4 H (94-97) % ABG Hematocrit (34.0-46.0) % ABG Potassium (3.4-4.5) mmol/L ABG Ionized Calcium 1.2 L* 1.2 L* (4.5-5.3) mg/dL ABG Glucose 156 H 136 H (75-99) mg/dL ABG Lactic Acid 1.7 H (0.5-1.6) mmol/L Hemoglobin 12.9 L (13.0-17.5) gm/dL Chloride (98-107) mmol/L BUN (9-20) mg/dL Creatinine (0.66-1.25) mg/dL Glucose (74-99) mg/dL POC Glucose (mg/dL) (70-110) mg/dL Magnesium (1.6-2.3) mg/dL ALT (4-49) U/L Total Protein (6.3-8.2) g/dL Albumin (3.5-5.0) g/dL Arterial Blood Potassium (3.4-4.5) mmol/L Arterial Blood Glucose 156 H 136 H (75-99) mg/dL Crossmatch See Detail 05/11/23 05/11/23 05/11/23 Range/Units 09:54 10:57 13:05 WBC (3.8-10.6) k/uL RBC (4.30-5.90) m/uL Hgb (13.0-17.5) gm/dL Hct (39.0-53.0) % Plt Count (150-450) k/uL Neutrophils # (1.3-7.7) k/uL Lymphocytes # (1.0-4.8) k/uL INR (<1.2) ABG pH (7.35-7.45) ABG pCO2 34 L (35-45) mmHg ABG pO2 >420 H (83-108) mmHg ABG Total CO2 (19-24) mmol/L ABG O2 Saturation >99.4 H 97.6 H (94-97) % ABG Hematocrit 29 L 29 L (34.0-46.0) % ABG Potassium 4.7 H (3.4-4.5) mmol/L ABG Ionized Calcium 1.0 L* 1.0 L* (4.5-5.3) mg/dL ABG Glucose 106 H 164 H (75-99) mg/dL ABG Lactic Acid 1.8 H 2.8 H* (0.5-1.6) mmol/L Hemoglobin 9.5 L 9.4 L (13.0-17.5) gm/dL Chloride (98-107) mmol/L BUN (9-20) mg/dL Creatinine (0.66-1.25) mg/dL Glucose (74-99) mg/dL POC Glucose (mg/dL) 130 H (70-110) mg/dL Magnesium (1.6-2.3) mg/dL ALT (4-49) U/L Total Protein (6.3-8.2) g/dL Albumin (3.5-5.0) g/dL Arterial Blood Potassium 4.7 H (3.4-4.5) mmol/L Arterial Blood Glucose 106 H 164 H (75-99) mg/dL Crossmatch 05/11/23 05/11/23 05/11/23 Range/Units 13:14 13:14 13:14 WBC 14.0 H (3.8-10.6) k/uL RBC 3.66 L (4.30-5.90) m/uL Hgb 11.4 L D (13.0-17.5) gm/dL Hct 32.9 L (39.0-53.0) % Plt Count 149 L (150-450) k/uL Neutrophils # 12.1 H (1.3-7.7) k/uL Lymphocytes # (1.0-4.8) k/uL INR 1.2 H (<1.2) ABG pH (7.35-7.45) ABG pCO2 (35-45) mmHg ABG pO2 (83-108) mmHg ABG Total CO2 (19-24) mmol/L ABG O2 Saturation (94-97) % ABG Hematocrit (34.0-46.0) % ABG Potassium (3.4-4.5) mmol/L ABG Ionized Calcium (4.5-5.3) mg/dL ABG Glucose (75-99) mg/dL ABG Lactic Acid (0.5-1.6) mmol/L Hemoglobin (13.0-17.5) gm/dL Chloride 111 H (98-107) mmol/L BUN 6 L (9-20) mg/dL Creatinine 0.48 L (0.66-1.25) mg/dL Glucose 114 H (74-99) mg/dL POC Glucose (mg/dL) (70-110) mg/dL Magnesium 3.2 H (1.6-2.3) mg/dL ALT 65 H (4-49) U/L Total Protein 4.7 L (6.3-8.2) g/dL Albumin 2.9 L (3.5-5.0) g/dL Arterial Blood Potassium (3.4-4.5) mmol/L Arterial Blood Glucose (75-99) mg/dL Crossmatch 05/11/23 05/11/23 05/11/23 Range/Units 13:14 14:07 15:15 WBC (3.8-10.6) k/uL RBC (4.30-5.90) m/uL Hgb (13.0-17.5) gm/dL Hct (39.0-53.0) % Plt Count (150-450) k/uL Neutrophils # (1.3-7.7) k/uL Lymphocytes # (1.0-4.8) k/uL INR (<1.2) ABG pH (7.35-7.45) ABG pCO2 (35-45) mmHg ABG pO2 278 H (83-108) mmHg ABG Total CO2 26 H (19-24) mmol/L ABG O2 Saturation 99.7 H (94-97) % ABG Hematocrit (34.0-46.0) % ABG Potassium (3.4-4.5) mmol/L ABG Ionized Calcium (4.5-5.3) mg/dL ABG Glucose (75-99) mg/dL ABG Lactic Acid (0.5-1.6) mmol/L Hemoglobin (13.0-17.5) gm/dL Chloride (98-107) mmol/L BUN (9-20) mg/dL Creatinine (0.66-1.25) mg/dL Glucose (74-99) mg/dL POC Glucose (mg/dL) 130 H 156 H (70-110) mg/dL Magnesium (1.6-2.3) mg/dL ALT (4-49) U/L Total Protein (6.3-8.2) g/dL Albumin (3.5-5.0) g/dL Arterial Blood Potassium (3.4-4.5) mmol/L Arterial Blood Glucose (75-99) mg/dL Crossmatch 05/11/23 05/11/23 05/11/23 Range/Units 16:10 16:12 17:10 WBC 18.1 H (3.8-10.6) k/uL RBC 3.58 L (4.30-5.90) m/uL Hgb 11.2 L (13.0-17.5) gm/dL Hct 32.3 L (39.0-53.0) % Plt Count (150-450) k/uL Neutrophils # 16.1 H (1.3-7.7) k/uL Lymphocytes # (1.0-4.8) k/uL INR (<1.2) ABG pH (7.35-7.45) ABG pCO2 (35-45) mmHg ABG pO2 (83-108) mmHg ABG Total CO2 (19-24) mmol/L ABG O2 Saturation (94-97) % ABG Hematocrit (34.0-46.0) % ABG Potassium (3.4-4.5) mmol/L ABG Ionized Calcium (4.5-5.3) mg/dL ABG Glucose (75-99) mg/dL ABG Lactic Acid (0.5-1.6) mmol/L Hemoglobin (13.0-17.5) gm/dL Chloride (98-107) mmol/L BUN (9-20) mg/dL Creatinine (0.66-1.25) mg/dL Glucose (74-99) mg/dL POC Glucose (mg/dL) 165 H 152 H (70-110) mg/dL Magnesium (1.6-2.3) mg/dL ALT (4-49) U/L Total Protein (6.3-8.2) g/dL Albumin (3.5-5.0) g/dL Arterial Blood Potassium (3.4-4.5) mmol/L Arterial Blood Glucose (75-99) mg/dL Crossmatch 05/11/23 05/11/23 05/11/23 Range/Units 17:53 18:05 19:04 WBC (3.8-10.6) k/uL RBC (4.30-5.90) m/uL Hgb (13.0-17.5) gm/dL Hct (39.0-53.0) % Plt Count (150-450) k/uL Neutrophils # (1.3-7.7) k/uL Lymphocytes # (1.0-4.8) k/uL INR (<1.2) ABG pH (7.35-7.45) ABG pCO2 (35-45) mmHg ABG pO2 141 H (83-108) mmHg ABG Total CO2 26 H (19-24) mmol/L ABG O2 Saturation 99.6 H (94-97) % ABG Hematocrit (34.0-46.0) % ABG Potassium (3.4-4.5) mmol/L ABG Ionized Calcium (4.5-5.3) mg/dL ABG Glucose (75-99) mg/dL ABG Lactic Acid (0.5-1.6) mmol/L Hemoglobin (13.0-17.5) gm/dL Chloride (98-107) mmol/L BUN (9-20) mg/dL Creatinine (0.66-1.25) mg/dL Glucose (74-99) mg/dL POC Glucose (mg/dL) 140 H 141 H (70-110) mg/dL Magnesium (1.6-2.3) mg/dL ALT (4-49) U/L Total Protein (6.3-8.2) g/dL Albumin (3.5-5.0) g/dL Arterial Blood Potassium (3.4-4.5) mmol/L Arterial Blood Glucose (75-99) mg/dL Crossmatch 05/11/23 05/11/23 05/11/23 Range/Units 19:05 19:53 21:01 WBC 15.3 H (3.8-10.6) k/uL RBC 3.61 L (4.30-5.90) m/uL Hgb 11.4 L (13.0-17.5) gm/dL Hct 32.4 L (39.0-53.0) % Plt Count (150-450) k/uL Neutrophils # 14.2 H (1.3-7.7) k/uL Lymphocytes # 0.4 L (1.0-4.8) k/uL INR (<1.2) ABG pH (7.35-7.45) ABG pCO2 (35-45) mmHg ABG pO2 (83-108) mmHg ABG Total CO2 (19-24) mmol/L ABG O2 Saturation (94-97) % ABG Hematocrit (34.0-46.0) % ABG Potassium (3.4-4.5) mmol/L ABG Ionized Calcium (4.5-5.3) mg/dL ABG Glucose (75-99) mg/dL ABG Lactic Acid (0.5-1.6) mmol/L Hemoglobin (13.0-17.5) gm/dL Chloride (98-107) mmol/L BUN (9-20) mg/dL Creatinine (0.66-1.25) mg/dL Glucose (74-99) mg/dL POC Glucose (mg/dL) 141 H 133 H (70-110) mg/dL Magnesium (1.6-2.3) mg/dL ALT (4-49) U/L Total Protein (6.3-8.2) g/dL Albumin (3.5-5.0) g/dL Arterial Blood Potassium (3.4-4.5) mmol/L Arterial Blood Glucose (75-99) mg/dL Crossmatch 05/11/23 05/11/23 05/12/23 Range/Units 22:06 23:00 00:01 WBC (3.8-10.6) k/uL RBC (4.30-5.90) m/uL Hgb (13.0-17.5) gm/dL Hct (39.0-53.0) % Plt Count (150-450) k/uL Neutrophils # (1.3-7.7) k/uL Lymphocytes # (1.0-4.8) k/uL INR (<1.2) ABG pH (7.35-7.45) ABG pCO2 (35-45) mmHg ABG pO2 (83-108) mmHg ABG Total CO2 (19-24) mmol/L ABG O2 Saturation (94-97) % ABG Hematocrit (34.0-46.0) % ABG Potassium (3.4-4.5) mmol/L ABG Ionized Calcium (4.5-5.3) mg/dL ABG Glucose (75-99) mg/dL ABG Lactic Acid (0.5-1.6) mmol/L Hemoglobin (13.0-17.5) gm/dL Chloride (98-107) mmol/L BUN (9-20) mg/dL Creatinine (0.66-1.25) mg/dL Glucose (74-99) mg/dL POC Glucose (mg/dL) 137 H 128 H 118 H (70-110) mg/dL Magnesium (1.6-2.3) mg/dL ALT (4-49) U/L Total Protein (6.3-8.2) g/dL Albumin (3.5-5.0) g/dL Arterial Blood Potassium (3.4-4.5) mmol/L Arterial Blood Glucose (75-99) mg/dL Crossmatch 05/12/23 05/12/23 05/12/23 Range/Units 01:06 01:06 01:06 WBC 15.0 H (3.8-10.6) k/uL RBC 3.52 L (4.30-5.90) m/uL Hgb 11.1 L (13.0-17.5) gm/dL Hct 31.8 L (39.0-53.0) % Plt Count (150-450) k/uL Neutrophils # 13.0 H (1.3-7.7) k/uL Lymphocytes # 0.9 L (1.0-4.8) k/uL INR (<1.2) ABG pH (7.35-7.45) ABG pCO2 (35-45) mmHg ABG pO2 (83-108) mmHg ABG Total CO2 (19-24) mmol/L ABG O2 Saturation (94-97) % ABG Hematocrit (34.0-46.0) % ABG Potassium (3.4-4.5) mmol/L ABG Ionized Calcium (4.5-5.3) mg/dL ABG Glucose (75-99) mg/dL ABG Lactic Acid (0.5-1.6) mmol/L Hemoglobin (13.0-17.5) gm/dL Chloride (98-107) mmol/L BUN 8 L (9-20) mg/dL Creatinine 0.54 L (0.66-1.25) mg/dL Glucose 110 H (74-99) mg/dL POC Glucose (mg/dL) 121 H (70-110) mg/dL Magnesium (1.6-2.3) mg/dL ALT 55 H (4-49) U/L Total Protein 5.4 L (6.3-8.2) g/dL Albumin (3.5-5.0) g/dL Arterial Blood Potassium (3.4-4.5) mmol/L Arterial Blood Glucose (75-99) mg/dL Crossmatch 05/12/23 05/12/23 05/12/23 Range/Units 01:57 03:03 04:04 WBC (3.8-10.6) k/uL RBC (4.30-5.90) m/uL Hgb (13.0-17.5) gm/dL Hct (39.0-53.0) % Plt Count (150-450) k/uL Neutrophils # (1.3-7.7) k/uL Lymphocytes # (1.0-4.8) k/uL INR (<1.2) ABG pH (7.35-7.45) ABG pCO2 (35-45) mmHg ABG pO2 (83-108) mmHg ABG Total CO2 (19-24) mmol/L ABG O2 Saturation (94-97) % ABG Hematocrit (34.0-46.0) % ABG Potassium (3.4-4.5) mmol/L ABG Ionized Calcium (4.5-5.3) mg/dL ABG Glucose (75-99) mg/dL ABG Lactic Acid (0.5-1.6) mmol/L Hemoglobin (13.0-17.5) gm/dL Chloride (98-107) mmol/L BUN (9-20) mg/dL Creatinine (0.66-1.25) mg/dL Glucose (74-99) mg/dL POC Glucose (mg/dL) 123 H 129 H 126 H (70-110) mg/dL Magnesium (1.6-2.3) mg/dL ALT (4-49) U/L Total Protein (6.3-8.2) g/dL Albumin (3.5-5.0) g/dL Arterial Blood Potassium (3.4-4.5) mmol/L Arterial Blood Glucose (75-99) mg/dL Crossmatch 05/12/23 05/12/23 05/12/23 Range/Units 04:52 06:15 07:06 WBC (3.8-10.6) k/uL RBC (4.30-5.90) m/uL Hgb (13.0-17.5) gm/dL Hct (39.0-53.0) % Plt Count (150-450) k/uL Neutrophils # (1.3-7.7) k/uL Lymphocytes # (1.0-4.8) k/uL INR (<1.2) ABG pH (7.35-7.45) ABG pCO2 (35-45) mmHg ABG pO2 (83-108) mmHg ABG Total CO2 (19-24) mmol/L ABG O2 Saturation (94-97) % ABG Hematocrit (34.0-46.0) % ABG Potassium (3.4-4.5) mmol/L ABG Ionized Calcium (4.5-5.3) mg/dL ABG Glucose (75-99) mg/dL ABG Lactic Acid (0.5-1.6) mmol/L Hemoglobin (13.0-17.5) gm/dL Chloride (98-107) mmol/L BUN (9-20) mg/dL Creatinine (0.66-1.25) mg/dL Glucose (74-99) mg/dL POC Glucose (mg/dL) 118 H 122 H 124 H (70-110) mg/dL Magnesium (1.6-2.3) mg/dL ALT (4-49) U/L Total Protein (6.3-8.2) g/dL Albumin (3.5-5.0) g/dL Arterial Blood Potassium (3.4-4.5) mmol/L Arterial Blood Glucose (75-99) mg/dL Crossmatch 05/12/23 05/12/23 Range/Units 09:04 10:19 WBC (3.8-10.6) k/uL RBC (4.30-5.90) m/uL Hgb (13.0-17.5) gm/dL Hct (39.0-53.0) % Plt Count (150-450) k/uL Neutrophils # (1.3-7.7) k/uL Lymphocytes # (1.0-4.8) k/uL INR (<1.2) ABG pH (7.35-7.45) ABG pCO2 (35-45) mmHg ABG pO2 (83-108) mmHg ABG Total CO2 (19-24) mmol/L ABG O2 Saturation (94-97) % ABG Hematocrit (34.0-46.0) % ABG Potassium (3.4-4.5) mmol/L ABG Ionized Calcium (4.5-5.3) mg/dL ABG Glucose (75-99) mg/dL ABG Lactic Acid (0.5-1.6) mmol/L Hemoglobin (13.0-17.5) gm/dL Chloride (98-107) mmol/L BUN (9-20) mg/dL Creatinine (0.66-1.25) mg/dL Glucose (74-99) mg/dL POC Glucose (mg/dL) 155 H 140 H (70-110) mg/dL Magnesium (1.6-2.3) mg/dL ALT (4-49) U/L Total Protein (6.3-8.2) g/dL Albumin (3.5-5.0) g/dL Arterial Blood Potassium (3.4-4.5) mmol/L Arterial Blood Glucose (75-99) mg/dL Crossmatch
[2023-05-12 11:57] LABS: Glucose,Whole Blood 120 mg/dL (70-110)
--- NOTE | 2023-05-12 12:13 | CONS ---
CONSULTATION HISTORY OF PRESENT ILLNESS: Luke is a 53-year-old gentleman who is admitted to hospital for aortic valve replacement with improved reduction following the diagnosis of severe aortic stenosis. Today is postop day #1. The patient is doing well and remains in sinus rhythm, hemodynamically stable, and is free of symptoms other than the discomfort at the surgical site. PAST MEDICAL HISTORY: Significant for aortic stenosis and dyslipidemia. MEDICATIONS: Lipitor. ALLERGIES: Allergic to penicillin and ampicillin. FAMILY HISTORY: Negative for premature coronary artery disease. SOCIAL HISTORY: Negative for current smoking, EtOH abuse, or drug abuse. REVIEW OF SYSTEMS: A review of systems has been performed, pertinences are as documented. PHYSICAL EXAMINATION: VITAL SIGNS: Heart rate is 90 beats per minute, blood pressure 97/50, respiratory rate is 18, and O2 saturation is 96% on 2 L. NECK: There is no jugular venous distention. Carotid upstroke is normal. There is no bruit. CHEST: Reveals good air entry bilaterally. HEART: Reveals first and second heart sounds. No gallop, no murmur. ABDOMEN: Soft, nontender. EXTREMITIES: Did not reveal any edema. Peripheral pulses are felt. LAB: Labs have been reviewed. ASSESSMENT AND PLAN: 1. Aortic stenosis, status post aortic valve replacement. 2. Incentive spirometry. MMODL / IJN: [id number] / [facility]ORE[facility]bert
[2023-05-12 13:03] VITALS: BMI 30.5
--- NOTE | 2023-05-12 13:03 | P.PN ---
Subjective Progress Note Date: 05/12/23 Principal diagnosis: POD #1 aortic valve replacement with 27 mm Dunne Inspiris bovine valve prosthesis with aortic root enlargement with woven dacron patch (Bill Dacosta technique) and ligation of the left atrial appendage with 35mm AtriCure clamp. SUKHJINDER by anesthesia. Epiaortic ultrasonography This is a 53-year-old male patient with a history of hypertension and hyperlipidemia who had developed an acute episode of shortness of breath while out hunting in the cold. He had been seen and evaluated by cardiology and during his evaluation he was found to have a bicuspid aortic valve stenosis. He was brought in today surgery. He had undergone aortic valve replacement with a Inspiris bovine valve prosthesis and aortic root enlargement along with ligation of the left atrial appendage. He is seen in the postoperative period in the intensive care unit. He is intubated on mechanical ventilator. Current settings are assist-control mode at a rate of 16, tidal volume 500, FiO2 70% and a PEEP of 10. Arterial blood gases revealed a PaO2 of 278, pCO2 41 and a pH of 7.38 on 100% FiO2. He is currently been weaned down to 50% FiO2. He is sedated on propofol at 40 mcg/kg/min. Lactated Ringer's at 50 MLS per hour. Insulin drip at 1 unit/h. Mediastinal and left pleural chest tube remains in place. PA pressure 36/23. Cardiac output 4.3. Cardiac index 2.3. Chest x-ray reveals postsurgical changes with appropriate endotracheal tube, gastric tube, Hambleton-Puma catheter and chest tubes in good position. No evidence of pneumothorax. White count 14.0. Hemoglobin 11.4. Platelets 149. Sodium 139. Potassium 4.1. Bicarb 22. BUN 6. Creatinine 0.48. Glucose 114. Magnesium 3.2. Calcium 5.1. Albumin 2.9. He is continued on bronchodilators. Heparin for DVT prophylaxis. Patient was reevaluated today on 05/12/2023, he is now postoperative day #1, patient was extubated yesterday shortly after he was admitted to the ICU, he is now on 2 L nasal cannula, doing great with incentive spirometry, chest x-ray showing mostly atelectasis, mediastinal/left pleural chest tubes all remain in place, no evidence of pneumothorax on the chest x-ray. Continues to have right internal jugular Hambleton-Puma/Cordis. Today's labs are reassuring hemoglobin is 11.1 WBC count is 15, Renal profile is normal electrolytes are normal Objective - Vital Signs Vital signs: Vital Signs Temp 98.6 F 05/12/23 12:00 Pulse 103 H 05/12/23 12:21 Resp 22 05/12/23 12:00 BP 92/62 05/12/23 10:00 Pulse Ox 98 05/12/23 12:00 FiO2 50 05/11/23 16:50 Intake & Output 05/11/23 05/12/23 05/12/23 18:59 06:59 18:59 Intake Total 1175.810 026.163 7736.587 Output Total 2250 650 350 Balance -1074.190 238.410 762.587 Weight 80.8 kg Intake: IV 167 808 212 Lactated Ringers 1,000 ml 550 150 @ 20 mls/hr IV .Q24H DAPHNE Rx#:[id number] NS for cardiac output 120 150 20 NS for pressure flush 45 108 42 Intake, IV Titration 1008.810 80.410 420.587 Amount ACETAMINOPHEN IV (For NPO 100 100 ) 1,000 mg In Empty Bag 1 bag @ 400 mls/hr IVPB Q6HR DAPHNE Rx#:[id number] Albumin Human 5% 250 ml 250 In Empty Bag 1 bag @ 250 mls/hr IVPB ONCE ONE Rx#: [id number] Albumin Human 5% 250 ml 250 In Empty Bag 1 bag @ 250 mls/hr IVPB Q1HR PRN Rx#: [id number] Albumin Human 5% 500 ml @ 250 Per Protocol IVPB ONCE ONE Rx#:[id number] Dexmedetomidine/0.9% NaCl 32.893 (Pmx) 400 mcg In Empty Bag 1 bag @ Titrate IV . Q0M DAPHNE Rx#:[id number] Insulin Regular 100 unit 10.101 30.410 20.587 In Sodium Chloride 0.9% 100 ml @ Per Protocol IV .Q0M DAPHNE Rx#:[id number] Insulin Regular 100 unit 2 In Sodium Chloride 0.9% 100 ml @ Per Protocol IV ONCE ONE Rx#:[id number] Lactated Ringers 1,000 ml 250 50 @ 20 mls/hr IV .Q24H DAPHNE Rx#:[id number] ceFAZolin 2 gm In Sodium 50 50 Chloride 0.9% 50 ml @ 100 mls/hr IVPB Q8HR D[facility]NE Rx# :[id number] propofoL 1,000 mg In 63.816 Empty Bag 1 bag @ Titrate IV .Q0M DAPHNE Rx#: [id number] Oral 480 Output: Chest Tube Drainage 250 160 190 Left Pleural/Mediastinal 250 160 190 Gastric Drainage 250 Urine 1350 490 160 Estimated Blood Loss 400 Other: Voiding Method Indwelling Catheter Indwelling Catheter Indwelling Catheter ABP, PAP, CO, CI - Last Documented Arterial Blood Pressure 114/59 Pulmonary Artery Pressure 29/15 Cardiac Output 4.0 Cardiac Index 2.2 - Exam Igeneral: The patient is awake and alert, in no distress, and does not appear acutely ill. On 2 L nasal cannula Skin: Skin is warm and dry and no rashes or lesions are noted. Eye: Pupils are equal, round and reactive to light, extra-ocular movements are intact; there is normal conjunctiva bilaterally. Ears, nose, mouth and throat: There are moist mucous membranes and no oral lesions. Neck: The neck is supple, there is no tenderness or JVD. Cardiovascular: There is a regular rate and rhythm. 2/6 systolic murmur throughout the precordium and positive pericardial rub Respiratory: Diminished breath sound bilaterally no crackles rhonchi or wheezes mediastinal and left pleural chest tubes noted Gastrointestinal: Soft, non-distended, non-tender abdomen without masses or o rganomegaly noted. There is no rebound or guarding present. Bowel sounds are unremarkable. Neurological: Alert and oriented x 3 no gross focal deficit Psychiatric: Normal mood, affect and no mental status examination - Labs CBC & Chem 7: 05/12/23 01:06 05/12/23 01:06 Labs: Abnormal Lab Results - Last 24 Hours (Table) 05/10/23 05/11/23 05/11/23 Range/Units 08:01 08:32 09:20 WBC (3.8-10.6) k/uL RBC (4.30-5.90) m/uL Hgb (13.0-17.5) gm/dL Hct (39.0-53.0) % Plt Count (150-450) k/uL Neutrophils # (1.3-7.7) k/uL Lymphocytes # (1.0-4.8) k/uL INR (<1.2) ABG pH 7.34 L (7.35-7.45) ABG pCO2 (35-45) mmHg ABG pO2 336 H 213 H (83-108) mmHg ABG Total CO2 (19-24) mmol/L ABG O2 Saturation >99.4 H >99.4 H (94-97) % ABG Hematocrit (34.0-46.0) % ABG Potassium (3.4-4.5) mmol/L ABG Ionized Calcium 1.2 L* 1.2 L* (4.5-5.3) mg/dL ABG Glucose 156 H 136 H (75-99) mg/dL ABG Lactic Acid 1.7 H (0.5-1.6) mmol/L Hemoglobin 12.9 L (13.0-17.5) gm/dL Chloride (98-107) mmol/L BUN (9-20) mg/dL Creatinine (0.66-1.25) mg/dL Glucose (74-99) mg/dL POC Glucose (mg/dL) (70-110) mg/dL Magnesium (1.6-2.3) mg/dL ALT (4-49) U/L Total Protein (6.3-8.2) g/dL Albumin (3.5-5.0) g/dL Arterial Blood Potassium (3.4-4.5) mmol/L Arterial Blood Glucose 156 H 136 H (75-99) mg/dL Crossmatch See Detail 05/11/23 05/11/23 05/11/23 Range/Units 09:54 10:57 13:05 WBC (3.8-10.6) k/uL RBC (4.30-5.90) m/uL Hgb (13.0-17.5) gm/dL Hct (39.0-53.0) % Plt Count (150-450) k/uL Neutrophils # (1.3-7.7) k/uL Lymphocytes # (1.0-4.8) k/uL INR (<1.2) ABG pH (7.35-7.45) ABG pCO2 34 L (35-45) mmHg ABG pO2 >420 H (83-108) mmHg ABG Total CO2 (19-24) mmol/L ABG O2 Saturation >99.4 H 97.6 H (94-97) % ABG Hematocrit 29 L 29 L (34.0-46.0) % ABG Potassium 4.7 H (3.4-4.5) mmol/L ABG Ionized Calcium 1.0 L* 1.0 L* (4.5-5.3) mg/dL ABG Glucose 106 H 164 H (75-99) mg/dL ABG Lactic Acid 1.8 H 2.8 H* (0.5-1.6) mmol/L Hemoglobin 9.5 L 9.4 L (13.0-17.5) gm/dL Chloride (98-107) mmol/L BUN (9-20) mg/dL Creatinine (0.66-1.25) mg/dL Glucose (74-99) mg/dL POC Glucose (mg/dL) 130 H (70-110) mg/dL Magnesium (1.6-2.3) mg/dL ALT (4-49) U/L Total Protein (6.3-8.2) g/dL Albumin (3.5-5.0) g/dL Arterial Blood Potassium 4.7 H (3.4-4.5) mmol/L Arterial Blood Glucose 106 H 164 H (75-99) mg/dL Crossmatch 05/11/23 05/11/23 05/11/23 Range/Units 13:14 13:14 13:14 WBC 14.0 H (3.8-10.6) k/uL RBC 3.66 L (4.30-5.90) m/uL Hgb 11.4 L D (13.0-17.5) gm/dL Hct 32.9 L (39.0-53.0) % Plt Count 149 L (150-450) k/uL Neutrophils # 12.1 H (1.3-7.7) k/uL Lymphocytes # (1.0-4.8) k/uL INR 1.2 H (<1.2) ABG pH (7.35-7.45) ABG pCO2 (35-45) mmHg ABG pO2 (83-108) mmHg ABG Total CO2 (19-24) mmol/L ABG O2 Saturation (94-97) % ABG Hematocrit (34.0-46.0) % ABG Potassium (3.4-4.5) mmol/L ABG Ionized Calcium (4.5-5.3) mg/dL ABG Glucose (75-99) mg/dL ABG Lactic Acid (0.5-1.6) mmol/L Hemoglobin (13.0-17.5) gm/dL Chloride 111 H (98-107) mmol/L BUN 6 L (9-20) mg/dL Creatinine 0.48 L (0.66-1.25) mg/dL Glucose 114 H (74-99) mg/dL POC Glucose (mg/dL) (70-110) mg/dL Magnesium 3.2 H (1.6-2.3) mg/dL ALT 65 H (4-49) U/L Total Protein 4.7 L (6.3-8.2) g/dL Albumin 2.9 L (3.5-5.0) g/dL Arterial Blood Potassium (3.4-4.5) mmol/L Arterial Blood Glucose (75-99) mg/dL Crossmatch 05/11/23 05/11/23 05/11/23 Range/Units 13:14 14:07 15:15 WBC (3.8-10.6) k/uL RBC (4.30-5.90) m/uL Hgb (13.0-17.5) gm/dL Hct (39.0-53.0) % Plt Count (150-450) k/uL Neutrophils # (1.3-7.7) k/uL Lymphocytes # (1.0-4.8) k/uL INR (<1.2) ABG pH (7.35-7.45) ABG pCO2 (35-45) mmHg ABG pO2 278 H (83-108) mmHg ABG Total CO2 26 H (19-24) mmol/L ABG O2 Saturation 99.7 H (94-97) % ABG Hematocrit (34.0-46.0) % ABG Potassium (3.4-4.5) mmol/L ABG Ionized Calcium (4.5-5.3) mg/dL ABG Glucose (75-99) mg/dL ABG Lactic Acid (0.5-1.6) mmol/L Hemoglobin (13.0-17.5) gm/dL Chloride (98-107) mmol/L BUN (9-20) mg/dL Creatinine (0.66-1.25) mg/dL Glucose (74-99) mg/dL POC Glucose (mg/dL) 130 H 156 H (70-110) mg/dL Magnesium (1.6-2.3) mg/dL ALT (4-49) U/L Total Protein (6.3-8.2) g/dL Albumin (3.5-5.0) g/dL Arterial Blood Potassium (3.4-4.5) mmol/L Arterial Blood Glucose (75-99) mg/dL Crossmatch 05/11/23 05/11/23 05/11/23 Range/Units 16:10 16:12 17:10 WBC 18.1 H (3.8-10.6) k/uL RBC 3.58 L (4.30-5.90) m/uL Hgb 11.2 L (13.0-17.5) gm/dL Hct 32.3 L (39.0-53.0) % Plt Count (150-450) k/uL Neutrophils # 16.1 H (1.3-7.7) k/uL Lymphocytes # (1.0-4.8) k/uL INR (<1.2) ABG pH (7.35-7.45) ABG pCO2 (35-45) mmHg ABG pO2 (83-108) mmHg ABG Total CO2 (19-24) mmol/L ABG O2 Saturation (94-97) % ABG Hematocrit (34.0-46.0) % ABG Potassium (3.4-4.5) mmol/L ABG Ionized Calcium (4.5-5.3) mg/dL ABG Glucose (75-99) mg/dL ABG Lactic Acid (0.5-1.6) mmol/L Hemoglobin (13.0-17.5) gm/dL Chloride (98-107) mmol/L BUN (9-20) mg/dL Creatinine (0.66-1.25) mg/dL Glucose (74-99) mg/dL POC Glucose (mg/dL) 165 H 152 H (70-110) mg/dL Magnesium (1.6-2.3) mg/dL ALT (4-49) U/L Total Protein (6.3-8.2) g/dL Albumin (3.5-5.0) g/dL Arterial Blood Potassium (3.4-4.5) mmol/L Arterial Blood Glucose (75-99) mg/dL Crossmatch 05/11/23 05/11/23 05/11/23 Range/Units 17:53 18:05 19:04 WBC (3.8-10.6) k/uL RBC (4.30-5.90) m/uL Hgb (13.0-17.5) gm/dL Hct (39.0-53.0) % Plt Count (150-450) k/uL Neutrophils # (1.3-7.7) k/uL Lymphocytes # (1.0-4.8) k/uL INR (<1.2) ABG pH (7.35-7.45) ABG pCO2 (35-45) mmHg ABG pO2 141 H (83-108) mmHg ABG Total CO2 26 H (19-24) mmol/L ABG O2 Saturation 99.6 H (94-97) % ABG Hematocrit (34.0-46.0) % ABG Potassium (3.4-4.5) mmol/L ABG Ionized Calcium (4.5-5.3) mg/dL ABG Glucose (75-99) mg/dL ABG Lactic Acid (0.5-1.6) mmol/L Hemoglobin (13.0-17.5) gm/dL Chloride (98-107) mmol/L BUN (9-20) mg/dL Creatinine (0.66-1.25) mg/dL Glucose (74-99) mg/dL POC Glucose (mg/dL) 140 H 141 H (70-110) mg/dL Magnesium (1.6-2.3) mg/dL ALT (4-49) U/L Total Protein (6.3-8.2) g/dL Albumin (3.5-5.0) g/dL Arterial Blood Potassium (3.4-4.5) mmol/L Arterial Blood Glucose (75-99) mg/dL Crossmatch 05/11/23 05/11/23 05/11/23 Range/Units 19:05 19:53 21:01 WBC 15.3 H (3.8-10.6) k/uL RBC 3.61 L (4.30-5.90) m/uL Hgb 11.4 L (13.0-17.5) gm/dL Hct 32.4 L (39.0-53.0) % Plt Count (150-450) k/uL Neutrophils # 14.2 H (1.3-7.7) k/uL Lymphocytes # 0.4 L (1.0-4.8) k/uL INR (<1.2) ABG pH (7.35-7.45) ABG pCO2 (35-45) mmHg ABG pO2 (83-108) mmHg ABG Total CO2 (19-24) mmol/L ABG O2 Saturation (94-97) % ABG Hematocrit (34.0-46.0) % ABG Potassium (3.4-4.5) mmol/L ABG Ionized Calcium (4.5-5.3) mg/dL ABG Glucose (75-99) mg/dL ABG Lactic Acid (0.5-1.6) mmol/L Hemoglobin (13.0-17.5) gm/dL Chloride (98-107) mmol/L BUN (9-20) mg/dL Creatinine (0.66-1.25) mg/dL Glucose (74-99) mg/dL POC Glucose (mg/dL) 141 H 133 H (70-110) mg/dL Magnesium (1.6-2.3) mg/dL ALT (4-49) U/L Total Protein (6.3-8.2) g/dL Albumin (3.5-5.0) g/dL Arterial Blood Potassium (3.4-4.5) mmol/L Arterial Blood Glucose (75-99) mg/dL Crossmatch 05/11/23 05/11/23 05/12/23 Range/Units 22:06 23:00 00:01 WBC (3.8-10.6) k/uL RBC (4.30-5.90) m/uL Hgb (13.0-17.5) gm/dL Hct (39.0-53.0) % Plt Count (150-450) k/uL Neutrophils # (1.3-7.7) k/uL Lymphocytes # (1.0-4.8) k/uL INR (<1.2) ABG pH (7.35-7.45) ABG pCO2 (35-45) mmHg ABG pO2 (83-108) mmHg ABG Total CO2 (19-24) mmol/L ABG O2 Saturation (94-97) % ABG Hematocrit (34.0-46.0) % ABG Potassium (3.4-4.5) mmol/L ABG Ionized Calcium (4.5-5.3) mg/dL ABG Glucose (75-99) mg/dL ABG Lactic Acid (0.5-1.6) mmol/L Hemoglobin (13.0-17.5) gm/dL Chloride (98-107) mmol/L BUN (9-20) mg/dL Creatinine (0.66-1.25) mg/dL Glucose (74-99) mg/dL POC Glucose (mg/dL) 137 H 128 H 118 H (70-110) mg/dL Magnesium (1.6-2.3) mg/dL ALT (4-49) U/L Total Protein (6.3-8.2) g/dL Albumin (3.5-5.0) g/dL Arterial Blood Potassium (3.4-4.5) mmol/L Arterial Blood Glucose (75-99) mg/dL Crossmatch 05/12/23 05/12/23 05/12/23 Range/Units 01:06 01:06 01:06 WBC 15.0 H (3.8-10.6) k/uL RBC 3.52 L (4.30-5.90) m/uL Hgb 11.1 L (13.0-17.5) gm/dL Hct 31.8 L (39.0-53.0) % Plt Count (150-450) k/uL Neutrophils # 13.0 H (1.3-7.7) k/uL Lymphocytes # 0.9 L (1.0-4.8) k/uL INR (<1.2) ABG pH (7.35-7.45) ABG pCO2 (35-45) mmHg ABG pO2 (83-108) mmHg ABG Total CO2 (19-24) mmol/L ABG O2 Saturation (94-97) % ABG Hematocrit (34.0-46.0) % ABG Potassium (3.4-4.5) mmol/L ABG Ionized Calcium (4.5-5.3) mg/dL ABG Glucose (75-99) mg/dL ABG Lactic Acid (0.5-1.6) mmol/L Hemoglobin (13.0-17.5) gm/dL Chloride (98-107) mmol/L BUN 8 L (9-20) mg/dL Creatinine 0.54 L (0.66-1.25) mg/dL Glucose 110 H (74-99) mg/dL POC Glucose (mg/dL) 121 H (70-110) mg/dL Magnesium (1.6-2.3) mg/dL ALT 55 H (4-49) U/L Total Protein 5.4 L (6.3-8.2) g/dL Albumin (3.5-5.0) g/dL Arterial Blood Potassium (3.4-4.5) mmol/L Arterial Blood Glucose (75-99) mg/dL Crossmatch 05/12/23 05/12/23 05/12/23 Range/Units 01:57 03:03 04:04 WBC (3.8-10.6) k/uL RBC (4.30-5.90) m/uL Hgb (13.0-17.5) gm/dL Hct (39.0-53.0) % Plt Count (150-450) k/uL Neutrophils # (1.3-7.7) k/uL Lymphocytes # (1.0-4.8) k/uL INR (<1.2) ABG pH (7.35-7.45) ABG pCO2 (35-45) mmHg ABG pO2 (83-108) mmHg ABG Total CO2 (19-24) mmol/L ABG O2 Saturation (94-97) % ABG Hematocrit (34.0-46.0) % ABG Potassium (3.4-4.5) mmol/L ABG Ionized Calcium (4.5-5.3) mg/dL ABG Glucose (75-99) mg/dL ABG Lactic Acid (0.5-1.6) mmol/L Hemoglobin (13.0-17.5) gm/dL Chloride (98-107) mmol/L BUN (9-20) mg/dL Creatinine (0.66-1.25) mg/dL Glucose (74-99) mg/dL POC Glucose (mg/dL) 123 H 129 H 126 H (70-110) mg/dL Magnesium (1.6-2.3) mg/dL ALT (4-49) U/L Total Protein (6.3-8.2) g/dL Albumin (3.5-5.0) g/dL Arterial Blood Potassium (3.4-4.5) mmol/L Arterial Blood Glucose (75-99) mg/dL Crossmatch 05/12/23 05/12/23 05/12/23 Range/Units 04:52 06:15 07:06 WBC (3.8-10.6) k/uL RBC (4.30-5.90) m/uL Hgb (13.0-17.5) gm/dL Hct (39.0-53.0) % Plt Count (150-450) k/uL Neutrophils # (1.3-7.7) k/uL Lymphocytes # (1.0-4.8) k/uL INR (<1.2) ABG pH (7.35-7.45) ABG pCO2 (35-45) mmHg ABG pO2 (83-108) mmHg ABG Total CO2 (19-24) mmol/L ABG O2 Saturation (94-97) % ABG Hematocrit (34.0-46.0) % ABG Potassium (3.4-4.5) mmol/L ABG Ionized Calcium (4.5-5.3) mg/dL ABG Glucose (75-99) mg/dL ABG Lactic Acid (0.5-1.6) mmol/L Hemoglobin (13.0-17.5) gm/dL Chloride (98-107) mmol/L BUN (9-20) mg/dL Creatinine (0.66-1.25) mg/dL Glucose (74-99) mg/dL POC Glucose (mg/dL) 118 H 122 H 124 H (70-110) mg/dL Magnesium (1.6-2.3) mg/dL ALT (4-49) U/L Total Protein (6.3-8.2) g/dL Albumin (3.5-5.0) g/dL Arterial Blood Potassium (3.4-4.5) mmol/L Arterial Blood Glucose (75-99) mg/dL Crossmatch 02/16/24 02/16/24 02/16/24 Range/Units 09:04 10:19 11:55 WBC (3.8-10.6) k/uL RBC (4.30-5.90) m/uL Hgb (13.0-17.5) gm/dL Hct (39.0-53.0) % Plt Count (150-450) k/uL Neutrophils # (1.3-7.7) k/uL Lymphocytes # (1.0-4.8) k/uL INR (<1.2) ABG pH (7.35-7.45) ABG pCO2 (35-45) mmHg ABG pO2 (83-108) mmHg ABG Total CO2 (19-24) mmol/L ABG O2 Saturation (94-97) % ABG Hematocrit (34.0-46.0) % ABG Potassium (3.4-4.5) mmol/L ABG Ionized Calcium (4.5-5.3) mg/dL ABG Glucose (75-99) mg/dL ABG Lactic Acid (0.5-1.6) mmol/L Hemoglobin (13.0-17.5) gm/dL Chloride (98-107) mmol/L BUN (9-20) mg/dL Creatinine (0.66-1.25) mg/dL Glucose (74-99) mg/dL POC Glucose (mg/dL) 155 H 140 H 120 H (70-110) mg/dL Magnesium (1.6-2.3) mg/dL ALT (4-49) U/L Total Protein (6.3-8.2) g/dL Albumin (3.5-5.0) g/dL Arterial Blood Potassium (3.4-4.5) mmol/L Arterial Blood Glucose (75-99) mg/dL Crossmatch Assessment and Plan Assessment: Impression:bicuspid aortic valve stenosis, status post bioprosthetic aortic valve replacement with root enlargement, postoperative day #1 Benign essential hypertension History of syncope Mild to moderate COPD with FEV1 of 64% prior to surgery Remote history of alcohol use. Family history of premature coronary artery disease Postoperative blood loss anemia, expected Recommendations: Continue present supportive care measures Continue incentive spirometry Ambulation Continue bronchodilators Continue cardiac meds including aspirin statin Plavix beta-blockers Discontinue unnecessary lines and catheters Chest tubes will likely be removed in the next 24 hours. Will continue to follow. Daily x-rays of the chest to be done Time with Patient: Less than 30
[2023-05-12] MEDS: FOLIC ACID 1 MG TAB PO SCH (13:13)
[2023-05-12] MEDS: THIAMINE 100 MG TAB PO SCH (13:13)
[2023-05-12 13:53] LABS: Glucose,Whole Blood 173 mg/dL (70-110)
[2023-05-12 15:28] LABS: Glucose,Whole Blood 165 mg/dL (70-110)
[2023-05-12 16:56] LABS: Glucose,Whole Blood 121 mg/dL (70-110)
[2023-05-12] MEDS: ALBUMIN HUMAN 5% 250 ML in EMPTY BAG 1 BAG IVPB STA (18:00)
[2023-05-12 18:38] LABS: Glucose,Whole Blood 145 mg/dL (70-110)
[2023-05-12 20:23] LABS: Glucose,Whole Blood 100 mg/dL (70-110)
[2023-05-12 22:05] LABS: Glucose,Whole Blood 129 mg/dL (70-110)
[2023-05-12 23:08] LABS: Glucose,Whole Blood 197 mg/dL (70-110)
[2023-05-13 00:38] LABS: Glucose,Whole Blood 139 mg/dL (70-110)
[2023-05-13 02:15] LABS: Glucose,Whole Blood 107 mg/dL (70-110)
[2023-05-13 03:14] LABS: Glucose,Whole Blood 111 mg/dL (70-110)
[2023-05-13 04:11] LABS: Glucose,Whole Blood 124 mg/dL (70-110)
[2023-05-13 04:31] LABS: Basophils # (A) 0.1 k/uL (0-0.2); Basophils % (A) 0 %; Eosinophils % (A) 0 %; HCT 27.4 % (39.0-53.0); Lymphocytes # (A) 1.7 k/uL (1.0-4.8); Lymphocytes % (A) 11 %; MCH 32.1 pg (25.0-35.0); MCHC 35.1 g/dL (31.0-37.0); MCV 91.5 fL (80.0-100.0); Mean Platelet Volume 8.6; Monocytes # (A) 0.9 k/uL (0-1.0); Monocytes % (A) 6 %; Neutrophils % (A) 81 %; Platelet Count 143 k/uL (150-450); RDW 12.4 % (11.5-15.5); WBC 14.8 k/uL (3.8-10.6)
[2023-05-13 04:35] LABS: HGB 9.6 gm/dL (13.0-17.5)
[2023-05-13 05:57] LABS: Glucose,Whole Blood 120 mg/dL (70-110)
[2023-05-13 06:23] LABS: Glucose,Whole Blood 122 mg/dL (70-110)
[2023-05-13] MEDS: PANTOPRAZOLE 40 MG TABLET PO SCH (06:32)
--- NOTE | 2023-05-13 07:07 | XR ---
EXAMINATION TYPE: XR chest 1V portable DATE OF EXAM: 05/13/2023 CLINICAL HISTORY: Difficulty breathing progress study. Postoperative cardiac surgery. TECHNIQUE: Single AP portable upright view of the chest is obtained. COMPARISON: Chest x-ray from one day earlier and older studies. FINDINGS: Stable left-sided chest tube and mediastinal drainage catheter. Interval removal of right internal jugular [place]-Puma catheter. Cordis sheath remains present. Overlying sternal wires lung with left atrial appendage clip are redemonstrated. Overlying epicardial pacer wires redemonstrated. Persistent cardiomegaly with bibasilar opacities and mild central vascular congestion. No pneumothora x seen bilaterally. Osseous structures intact. IMPRESSION: Persistent cardiomegaly with bibasilar opacities favoring atelectasis and small bilateral pleural effusions along with mild central vascular congestion all redemonstrated. No significant divina nge from one day earlier.
[2023-05-13 07:45] LABS: Ionized Calcium 4.9 mg/dL (4.5-5.3)
[2023-05-13 08:00] LABS: ALT 40 U/L (4-49); AST 36 U/L (17-59); African American GFR (CKD) >90 (>60 ml/min/1.73 sqM); Albumin 3.3 g/dL (3.5-5.0); Alkaline Phosphatase 59 U/L (38-126); Anion Gap 7 mmol/L; Blood Urea Nitrogen 13 mg/dL (9-20); Calcium 8.5 mg/dL (8.4-10.2); Carbon Dioxide 25 mmol/L (22-30); Chloride 104 mmol/L (98-107); Glucose 108 mg/dL (74-99); Non-African American GFR(CKD) >90 (>60 ml/min/1.73 sqM); Potassium 4.9 mmol/L (3.5-5.1); Sodium 136 mmol/L (137-145); Total Bilirubin 1.9 mg/dL (0.2-1.3); Total Protein 5.3 g/dL (6.3-8.2)
[2023-05-13 08:06] LABS: Glucose,Whole Blood 211 mg/dL (70-110)
--- NOTE | 2023-05-13 09:20 | P.PN ---
Subjective Progress Note Date: 05/13/23 Principal diagnosis: Calcific bicuspid aortic valve stenosis. Previous medical history of hypertension, hyperlipidemia, syncope, previous tobacco dependence, mild COPD, ETOH use with greater than 8 drinks per week, occasional marijuana use, and family history of premature coronary artery disease POD #2 aortic valve replacement with 27 mm Dunne Inspiris bovine valve prosthesis with aortic root enlargement with woven dacron patch (Bill Dacosta technique) and ligation of the left atrial appendage with 35mm AtriCure clamp. SUKHJINDER by anesthesia. Epiaortic ultrasonography Postoperative acute blood loss anemia, expected given hemodilution Leukocytosis, likely reactive The patient was seen and examined this morning with Dr. Quevedo sitting up in recliner in the intensive care unit in no acute distress. Does complain of postsurgical pain which is mostly controlled on current medication regimen, denies shortness of breath although does state it hurts to take a deep breath. Remains in sinus rhythm, hemodynamically stable on no inotropes or pressors. Currently on 3 L nasal cannula with oxygen saturation in the mid 90s, only able to achieve 500 mL on his incentive spirometry. Chest x-ray, labs reviewed. Right internal jugular cordis, right radial arterial line, mediastinal/left pleural chest tubes all remain. Patient did ambulate in the hallway yesterday without difficulty. No other new concerns. Objective - Vital Signs Vital signs: Vital Signs Temp 98.6 F 05/13/23 04:00 Pulse 105 H 05/13/23 08:33 Resp 22 05/13/23 06:11 BP 112/66 05/13/23 06:11 Pulse Ox 92 L 05/13/23 06:11 FiO2 50 05/11/23 16:50 Intake & Output 05/12/23 05/13/23 05/13/23 18:59 06:59 18:59 Intake Total 1664.705 328.127 9.595 Output Total 615 535 Balance 1049.705 -206.873 9.595 Weight 80.8 kg 82.3 kg Intake: IV 368 306 Lactated Ringers 1,000 ml 270 240 @ 20 mls/hr IV .Q24H [facility] Rx#:[id number] NS for cardiac output 20 NS for pressure flush 78 66 Intake, IV Titration 696.705 22.127 9.595 Amount ACETAMINOPHEN IV (For NPO 100 ) 1,000 mg In Empty Bag 1 bag @ 400 mls/hr IVPB Q6HR [facility] Rx#:[id number] Albumin Human 5% 250 ml 250 In Empty Bag 1 bag @ 250 mls/hr IVPB ONCE ONE Rx#: [id number] Albumin Human 5% 250 ml 250 In Empty Bag 1 bag @ 250 mls/hr IVPB ONCE STA Rx#: [id number] Insulin Regular 100 unit 46.705 22.127 9.595 In Sodium Chloride 0.9% 100 ml @ Per Protocol IV .Q0M [facility] Rx#:[id number] ceFAZolin 2 gm In Sodium 50 Chloride 0.9% 50 ml @ 100 mls/hr IVPB Q8HR [facility] Rx# :[id number] Oral 600 Output: Chest Tube Drainage 300 210 Left Pleural/Mediastinal 300 210 Urine 315 325 Other: Voiding Method Indwelling Catheter Indwelling Catheter ABP, PAP, CO, CI - Last Documented Arterial Blood Pressure 136/74 Pulmonary Artery Pressure 29/15 Cardiac Output 4 Cardiac Index 2.2 - Exam CONSTITUTIONAL: Appears mostly comfortable, cooperative, no acute distress RESPIRATORY: Lungs sounds diminished bilaterally. Respirations even, nonlabored. Currently on 3 L nasal cannula with oxygen saturation 96%. Able to achieve 500 mL on incentive spirometry. Strong cough. CARDIOVASCULAR: S1, S2 present. Regular rate and rhythm, sinus rhythm on telemetry. Sternum stable. Palpable peripheral pulses bilaterally. No edema present. No calf pain or tenderness noted. Heart hugger in place with patient demonstrating appropriate use. Antiembolism stockings, SCDs present. GASTROINTESTINAL: Abdomen soft, nontender, nondistended. Hypoactive bowel sounds present 4 quadrants. Tolerating diet. Positive flatus GENITOURINARY: Matthew present draining clear, yellow urine. Output overnight 20-30 mL per hour, 640 mL in the last 24 hours INTEGUMENTARY: Skin is warm and dry with evidence of good perfusion. Anterior chest incision well approximated and covered with dry intact dressing NEUROLOGIC: Cranial nerves II through XII intact MUSKULOSKELETAL: Able to move all extremities, strength equal bilaterally, steady gait PSYCHIATRIC: Alert and oriented to person place and time, appropriate affect, intact judgment and insight INVASIVE LINES AND TUBES: Mediastinal/left pleural chest tubes present and connected to wall suction, no air leaks present, 160 mL serosanguineous drainage overnight, 520 mL in the last 24 hours. A/V epicardial pacemaker wires present, grounded. Right internal jugular cordis, right radial arterial line present. Last CVP 18 - Allied health notes Allied health notes reviewed: nursing - Labs CBC & Chem 7: 05/13/23 04:05 05/13/23 04:05 Labs: Abnormal Lab Results - Last 24 Hours (Table) 05/12/23 05/12/23 05/12/23 Range/Units 10:19 11:55 13:51 WBC (3.8-10.6) k/uL RBC (4.30-5.90) m/uL Hgb (13.0-17.5) gm/dL Hct (39.0-53.0) % Plt Count (150-450) k/uL Neutrophils # (1.3-7.7) k/uL Sodium (137-145) mmol/L Glucose (74-99) mg/dL POC Glucose (mg/dL) 140 H 120 H 173 H (70-110) mg/dL Total Bilirubin (0.2-1.3) mg/dL Total Protein (6.3-8.2) g/dL Albumin (3.5-5.0) g/dL 05/12/23 05/12/23 05/12/23 Range/Units 15:26 16:54 18:35 WBC (3.8-10.6) k/uL RBC (4.30-5.90) m/uL Hgb (13.0-17.5) gm/dL Hct (39.0-53.0) % Plt Count (150-450) k/uL Neutrophils # (1.3-7.7) k/uL Sodium (137-145) mmol/L Glucose (74-99) mg/dL POC Glucose (mg/dL) 165 H 121 H 145 H (70-110) mg/dL Total Bilirubin (0.2-1.3) mg/dL Total Protein (6.3-8.2) g/dL Albumin (3.5-5.0) g/dL 05/12/23 05/12/23 05/13/23 Range/Units 22:03 23:07 00:37 WBC (3.8-10.6) k/uL RBC (4.30-5.90) m/uL Hgb (13.0-17.5) gm/dL Hct (39.0-53.0) % Plt Count (150-450) k/uL Neutrophils # (1.3-7.7) k/uL Sodium (137-145) mmol/L Glucose (74-99) mg/dL POC Glucose (mg/dL) 129 H 197 H 139 H (70-110) mg/dL Total Bilirubin (0.2-1.3) mg/dL Total Protein (6.3-8.2) g/dL Albumin (3.5-5.0) g/dL 05/13/23 05/13/23 05/13/23 Range/Units 03:13 04:05 04:05 WBC 14.8 H (3.8-10.6) k/uL RBC 3.00 L (4.30-5.90) m/uL Hgb 9.6 L D (13.0-17.5) gm/dL Hct 27.4 L (39.0-53.0) % Plt Count 143 L (150-450) k/uL Neutrophils # 12.0 H (1.3-7.7) k/uL Sodium 136 L (137-145) mmol/L Glucose 108 H (74-99) mg/dL POC Glucose (mg/dL) 111 H (70-110) mg/dL Total Bilirubin 1.9 H (0.2-1.3) mg/dL Total Protein 5.3 L (6.3-8.2) g/dL Albumin 3.3 L (3.5-5.0) g/dL 05/13/23 05/13/23 05/13/23 Range/Units 04:09 05:55 06:22 WBC (3.8-10.6) k/uL RBC (4.30-5.90) m/uL Hgb (13.0-17.5) gm/dL Hct (39.0-53.0) % Plt Count (150-450) k/uL Neutrophils # (1.3-7.7) k/uL Sodium (137-145) mmol/L Glucose (74-99) mg/dL POC Glucose (mg/dL) 124 H 120 H 122 H (70-110) mg/dL Total Bilirubin (0.2-1.3) mg/dL Total Protein (6.3-8.2) g/dL Albumin (3.5-5.0) g/dL 05/13/23 Range/Units 08:05 WBC (3.8-10.6) k/uL RBC (4.30-5.90) m/uL Hgb (13.0-17.5) gm/dL Hct (39.0-53.0) % Plt Count (150-450) k/uL Neutrophils # (1.3-7.7) k/uL Sodium (137-145) mmol/L Glucose (74-99) mg/dL POC Glucose (mg/dL) 211 H (70-110) mg/dL Total Bilirubin (0.2-1.3) mg/dL Total Protein (6.3-8.2) g/dL Albumin (3.5-5.0) g/dL - Imaging and Cardiology Chest x-ray: report reviewed, image reviewed Assessment and Plan Assessment: Calcific bicuspid aortic valve stenosis, status post bioprosthetic aortic valve replacement with root enlargement History of hypertension Hyperlipidemia, treated, cholesterol 103, LDL 42 Recent syncope Previously undiagnosed diabetes, preoperative hemoglobin A1c 6.8% Previous tobacco dependence Mild COPD, preoperative FEV1 64% of predicted ETOH use with greater than 8 drinks per week Occasional marijuana use Family history of premature coronary artery disease Postoperative acute blood loss anemia, expected given hemodilution Leukocytosis, likely reactive Plan: Continue to maximize medical therapy with aspirin, statin, Plavix, beta-deondre. Will increase beta-deondre therapy as tolerated, increased Lopressor to 25 mg every 6 hours with hold parameters Wean O2 as tolerated. Encourage incentive spirometry use 10 times every hour while awake. Bronchodilators per pulmonology Increase activity, ambulate as tolerated. PT/OT/cardiac rehab consulted Will monitor daily labs and x-rays. Electrolyte replacement per protocol. Will give IV Lasix today GI/DVT prophylaxis Insulin management per internal medicine Pain control with current medication regimen Discontinue cordis, arterial line Will discontinue mediastinal chest tube, continue left pleural chest tube for another 24 hours, monitor output Continue Matthew catheter for another 24 hours, continue to record strict accurate intake and output Daily weights Will give Dulcolax suppository today More recommendations to follow
[2023-05-13] MEDS: FUROSEMIDE 10 MG/ML 2 ML VIAL IV ONE (09:21)
[2023-05-13 09:41] LABS: Glucose,Whole Blood 171 mg/dL (70-110)
--- NOTE | 2023-05-13 10:36 | P.PN ---
Subjective Progress Note Date: 05/13/23 53 year old M with PMH of HTN, HLD, bicuspid AV stenosis, history of smoking, daily drinker presents to [facility] for elective surgery. He underwent AV replacement with Dr. Quevedo on 05/11. [facility] has been consulted for medical management of this patient. Extubated successfully on 05/11. 05/12 Patient was seen and examined. He reports well controlled chest pain at the site of incision. Able to achieve 500 cc on IS. Currently on 2L NC. NS at 20 cc/hr. Insulin drip at 3.5 units/hr. Matthew catheter in placed. Right IJ, mediastinal and left chest tube in place. CBC WBC 15, Hg 11.1, Hct 31.8. CMP BUN 8 Cr 0.54, glu 110, ALT 55, total protein 5.4. CXR done today shows swan demetrius, mediastinal and left chest tube in place with no acute process. 05/13 Patient was seen and examined. Tired. A little SOB with exertion. Passing gas no bowel movement. Currently on 3L NC. Insulin drip at 6 units/hr. CBC WBC 14.8, Hg 9.6, Hct 27.4, Plt 143. CMP Na 136, glu 108, T. Bili 1.9, alb 3.3. POC glucose 100-211 over the past 24H. CXR done today shows increased pulmonary vascular congestion. Plans for Lasix 20 mg IV today. Plans to discontinue cordic, arterial line, mediastinal chest tube today per CT surgery. General: non toxic, no distress, appears at stated age Derm: warm, dry Head: atraumatic, normocephalic, symmetric, R IJ Eyes: EOMI, no lid lag, anicteric sclera Mouth: no lip lesion, mucus membranes moist Cardiovascular: S1S2 reg, no murmur, heart hugger in place, L chest tube in place Lungs: CTA bilateral, no rhonchi, no rales , no accessory muscle use Abdominal: soft, nontender to palpation, no guarding, no appreciable organomegaly, + BS Ext: no gross muscle atrophy, no edema, no contractures Neuro: no focal neuro deficits Psych: Alert, oriented, appropriate affect Based on my assessment of this patient, this patient meets a high complexity level of care. Patient has a history of bicuspid AV stenosis status post AV replacement POD 2 with severe exacerbation or progression of disease which poses a threat to life or bodily function. Acute blood loss anemia: Expected result of surgery. Daily CBC. Transfuse if Hg < 7. Pulmonary vascular congestion: Lasix 20 mg IV x 1 days. Repeat CXR tomorrow. Diabetes mellitus with hyperglycemia: A1c 6.8. 44 units of until over the past 24H. Will transition insulin drip to Levemir 21 units QHS and Novolog 7 units TID along with low dose ISS. Accuchecks ACHS. Hypoglycemic precautions. Leukocytosis: Likely reactive. Monitor fever profile. No signs of active infection. Transaminitis: Possibly related to EtOH abuse. Monitor. Hypertension: Metoprolol 25 mg PO BID. Dyslipidemia: Lipitor 40 mg PO QHS. h/o EtOH abuse: Monitor for withdrawal symptoms. CODE STATUS: FULL CODE. DVT Prophylaxis: Heparin SQ GI Prophylaxis: Protonix Designated medical POA if patient is not able to make medical decisions for themselves: I have reviewed the following customer service and sales consultant notes: Pulmonary, Cardiology, CT surgery note. I have reviewed the results of the following tests: CBC, CMP. I have ordered the following tests: CBC and CXR ordered for tomorrow morning. I have discussed the care of this patient with the following independent historian: Discussed with RN. I have independently interpreted the following test below: CXR. I have discussed the management of this patient with the following physician: This patient has a high risk of morbidity due to the following reasons: Patient requires adjustments in insulin which requires intensive monitoring for hypoglycemic episodes. Objective - Vital Signs Vital signs: Vital Signs Temp 98.6 F 05/13/23 04:00 Pulse 128 H 05/13/23 06:11 Resp 22 05/13/23 06:11 BP 112/66 05/13/23 06:11 Pulse Ox 92 L 05/13/23 06:11 FiO2 50 05/11/23 16:50 Intake & Output 05/12/23 05/13/23 05/13/23 18:59 06:59 18:59 Intake Total 1664.705 328.127 9.595 Output Total 615 535 Balance 1049.705 -206.873 9.595 Weight 80.8 kg 82.3 kg Intake: IV 368 306 Lactated Ringers 1,000 ml 270 240 @ 20 mls/hr IV .Q24H [facility] Rx#:[id number] NS for cardiac output 20 NS for pressure flush 78 66 Intake, IV Titration 696.705 22.127 9.595 Amount ACETAMINOPHEN IV (For NPO 100 ) 1,000 mg In Empty Bag 1 bag @ 400 mls/hr IVPB Q6HR [facility] Rx#:[id number] Albumin Human 5% 250 ml 250 In Empty Bag 1 bag @ 250 mls/hr IVPB ONCE ONE Rx#: [id number] Albumin Human 5% 250 ml 250 In Empty Bag 1 bag @ 250 mls/hr IVPB ONCE STA Rx#: [id number] Insulin Regular 100 unit 46.705 22.127 9.595 In Sodium Chloride 0.9% 100 ml @ Per Protocol IV .Q0M [facility] Rx#:[id number] ceFAZolin 2 gm In Sodium 50 Chloride 0.9% 50 ml @ 100 mls/hr IVPB Q8HR [facility] Rx# :[id number] Oral 600 Output: Chest Tube Drainage 300 210 Left Pleural/Mediastinal 300 210 Urine 315 325 Other: Voiding Method Indwelling Catheter Indwelling Catheter ABP, PAP, CO, CI - Last Documented Arterial Blood Pressure 136/74 Pulmonary Artery Pressure 29/15 Cardiac Output 4 Cardiac Index 2.2 - Labs CBC & Chem 7: 05/13/23 04:05 05/13/23 04:05 Labs: Abnormal Lab Results - Last 24 Hours (Table) 05/12/23 05/12/23 05/12/23 Range/Units 09:04 10:19 11:55 WBC (3.8-10.6) k/uL RBC (4.30-5.90) m/uL Hgb (13.0-17.5) gm/dL Hct (39.0-53.0) % Plt Count (150-450) k/uL Neutrophils # (1.3-7.7) k/uL Sodium (137-145) mmol/L Glucose (74-99) mg/dL POC Glucose (mg/dL) 155 H 140 H 120 H (70-110) mg/dL Total Bilirubin (0.2-1.3) mg/dL Total Protein (6.3-8.2) g/dL Albumin (3.5-5.0) g/dL 05/12/23 05/12/23 05/12/23 Range/Units 13:51 15:26 16:54 WBC (3.8-10.6) k/uL RBC (4.30-5.90) m/uL Hgb (13.0-17.5) gm/dL Hct (39.0-53.0) % Plt Count (150-450) k/uL Neutrophils # (1.3-7.7) k/uL Sodium (137-145) mmol/L Glucose (74-99) mg/dL POC Glucose (mg/dL) 173 H 165 H 121 H (70-110) mg/dL Total Bilirubin (0.2-1.3) mg/dL Total Protein (6.3-8.2) g/dL Albumin (3.5-5.0) g/dL 05/12/23 05/12/23 05/12/23 Range/Units 18:35 22:03 23:07 WBC (3.8-10.6) k/uL RBC (4.30-5.90) m/uL Hgb (13.0-17.5) gm/dL Hct (39.0-53.0) % Plt Count (150-450) k/uL Neutrophils # (1.3-7.7) k/uL Sodium (137-145) mmol/L Glucose (74-99) mg/dL POC Glucose (mg/dL) 145 H 129 H 197 H (70-110) mg/dL Total Bilirubin (0.2-1.3) mg/dL Total Protein (6.3-8.2) g/dL Albumin (3.5-5.0) g/dL 05/13/23 05/13/23 05/13/23 Range/Units 00:37 03:13 04:05 WBC 14.8 H (3.8-10.6) k/uL RBC 3.00 L (4.30-5.90) m/uL Hgb 9.6 L D (13.0-17.5) gm/dL Hct 27.4 L (39.0-53.0) % Plt Count 143 L (150-450) k/uL Neutrophils # 12.0 H (1.3-7.7) k/uL Sodium (137-145) mmol/L Glucose (74-99) mg/dL POC Glucose (mg/dL) 139 H 111 H (70-110) mg/dL Total Bilirubin (0.2-1.3) mg/dL Total Protein (6.3-8.2) g/dL Albumin (3.5-5.0) g/dL 05/13/23 05/13/23 05/13/23 Range/Units 04:05 04:09 05:55 WBC (3.8-10.6) k/uL RBC (4.30-5.90) m/uL Hgb (13.0-17.5) gm/dL Hct (39.0-53.0) % Plt Count (150-450) k/uL Neutrophils # (1.3-7.7) k/uL Sodium 136 L (137-145) mmol/L Glucose 108 H (74-99) mg/dL POC Glucose (mg/dL) 124 H 120 H (70-110) mg/dL Total Bilirubin 1.9 H (0.2-1.3) mg/dL Total Protein 5.3 L (6.3-8.2) g/dL Albumin 3.3 L (3.5-5.0) g/dL 05/13/23 05/13/23 Range/Units 06:22 08:05 WBC (3.8-10.6) k/uL RBC (4.30-5.90) m/uL Hgb (13.0-17.5) gm/dL Hct (39.0-53.0) % Plt Count (150-450) k/uL Neutrophils # (1.3-7.7) k/uL Sodium (137-145) mmol/L Glucose (74-99) mg/dL POC Glucose (mg/dL) 122 H 211 H (70-110) mg/dL Total Bilirubin (0.2-1.3) mg/dL Total Protein (6.3-8.2) g/dL Albumin (3.5-5.0) g/dL
[2023-05-13 11:08] LABS: Glucose,Whole Blood 166 mg/dL (70-110)
--- NOTE | 2023-05-13 11:34 | PN ---
PROGRESS NOTE SUBJECTIVE: This is a 53-year-old gentleman, who is status post aortic valve replacement, postop day #2. He seems to be in some discomfort at the surgical incision site and is tachycardic with a heart rate of around 105 beats per minute. Otherwise, he is doing well, remains in sinus rhythm, stable hemodynamically. OBJECTIVE: VITAL SIGNS: Heart rate is 105 beats per minute, blood pressure is 112/66, and respiratory rate 18. CHEST: Reveals diminished air entry at the bases. HEART: Reveals first and second heart sounds. Ejection systolic murmur in the aortic area. ABDOMEN: Soft. EXTREMITIES: Reveal bilateral mild edema. LABORATORY DATA: Labs show hemoglobin of 9.6, potassium is 4.9, and creatinine is 0.6. MEDICATIONS: Current medications include: 1. Metoprolol. 2. Plavix. 3. Lipitor. 4. Aspirin. ASSESSMENT AND PLAN: 1. Aortic stenosis, status post aortic valve replacement with bovine aortic valve prosthesis and aortic root enlargement. 2. Status post left atrial appendage, ligation with an AtriCure clamp. The patient will continue to work on incentive spirometry. MMODL / IJN: [id number] /
[2023-05-13] MEDS: METOPROLOL TARTRATE 25 MG TAB PO SCH (11:52)
[2023-05-13] MEDS: INSULIN ASPART (NovoLOG) 100 UNIT/ML VIAL SQ SCH ×2 (11:53)
[2023-05-13] MEDS: bisacodyL 10 MG SUPP RECTAL PRN (11:53)
--- NOTE | 2023-05-13 13:57 | P.PN ---
Subjective Progress Note Date: 05/13/23 Principal diagnosis: POD #2 aortic valve replacement with 27 mm Dunne Inspiris bovine valve prosthesis with aortic root enlargement with woven dacron patch (Bill Dacosta technique) and ligation of the left atrial appendage with 35mm AtriCure clamp. SUKHJINDER by anesthesia. Epiaortic ultrasonography This is a 53-year-old male patient with a history of hypertension and hyperlipidemia who had developed an acute episode of shortness of breath while out hunting in the cold. He had been seen and evaluated by cardiology and during his evaluation he was found to have a bicuspid aortic valve stenosis. He was brought in today surgery. He had undergone aortic valve replacement with a Inspiris bovine valve prosthesis and aortic root enlargement along with ligation of the left atrial appendage. He is seen in the postoperative period in the intensive care unit. He is intubated on mechanical ventilator. Current settings are assist-control mode at a rate of 16, tidal volume 500, FiO2 70% and a PEEP of 10. Arterial blood gases revealed a PaO2 of 278, pCO2 41 and a pH of 7.38 on 100% FiO2. He is currently been weaned down to 50% FiO2. He is sedated on propofol at 40 mcg/kg/min. Lactated Ringer's at 50 MLS per hour. Insulin drip at 1 unit/h. Mediastinal and left pleural chest tube remains in place. PA pressure 36/23. Cardiac output 4.3. Cardiac index 2.3. Chest x-ray reveals postsurgical changes with appropriate endotracheal tube, gastric tube, [place]-Puma catheter and chest tubes in good position. No evidence of pneumothorax. White count 14.0. Hemoglobin 11.4. Platelets 149. Sodium 139. Potassium 4.1. Bicarb 22. BUN 6. Creatinine 0.48. Glucose 114. Magnesium 3.2. Calcium 5.1. Albumin 2.9. He is continued on bronchodilators. Heparin for DVT prophylaxis. Patient was reevaluated today on 05/12/2023, he is now postoperative day #1, patient was extubated yesterday shortly after he was admitted to the ICU, he is now on 2 L nasal cannula, doing great with incentive spirometry, chest x-ray showing mostly atelectasis, mediastinal/left pleural chest tubes all remain in place, no evidence of pneumothorax on the chest x-ray. Continues to have right internal jugular Garden[place]-Puma/Cordis. Today's labs are reassuring hemoglobin is 11.1 WBC count is 15, Renal profile is normal electrolytes are normal Patient was reevaluated today on 05/13/2023, patient continues to do well, remains on 3 L nasal cannula, not in any distress, continues to achieve about 500 cc with his incentive spirometry, patient had no major issues overnight except for some vague chest wall discomfort. Chest x-ray continues to be reassuring, minimal bibasilar atelectasis otherwise unremarkable. WBC count is 14.8 hemoglobin 9.6Basic metabolic profile is normal and renal profile is normal Objective - Vital Signs Vital signs: Vital Signs Temp 98.5 F 05/13/23 12:00 Pulse 117 H 05/13/23 13:05 Resp 21 05/13/23 13:05 BP 104/70 05/13/23 13:05 Pulse Ox 95 05/13/23 13:05 FiO2 50 05/11/23 16:50 Intake & Output 05/12/23 05/13/23 05/13/23 18:59 06:59 18:59 Intake Total 1664.705 328.127 87.595 Output Total 615 535 760 Balance 1049.705 -206.873 -672.405 Weight 80.8 kg 82.3 kg Intake: IV 368 306 78 Lactated Ringers 1,000 ml 270 240 60 @ 20 mls/hr IV .Q24H DAPHNE Rx#:[id number] NS for cardiac output 20 NS for pressure flush 78 66 18 Intake, IV Titration 696.705 22.127 9.595 Amount ACETAMINOPHEN IV (For NPO 100 ) 1,000 mg In Empty Bag 1 bag @ 400 mls/hr IVPB Q6HR DAPHNE Rx#:[id number] Albumin Human 5% 250 ml 250 In Empty Bag 1 bag @ 250 mls/hr IVPB ONCE ONE Rx#: [id number] Albumin Human 5% 250 ml 250 In Empty Bag 1 bag @ 250 mls/hr IVPB ONCE STA Rx#: [id number] Insulin Regular 100 unit 46.705 22.127 9.595 In Sodium Chloride 0.9% 100 ml @ Per Protocol IV .Q0M DAPHNE Rx#:[id number] ceFAZolin 2 gm In Sodium 50 Chloride 0.9% 50 ml @ 100 mls/hr IVPB Q8HR DAPHNE Rx# :[id number] Oral 600 Output: Chest Tube Drainage 300 210 70 Left Pleural/Mediastinal 300 210 70 Urine 315 325 690 Other: Voiding Method Indwelling Catheter Indwelling Catheter Indwelling Catheter ABP, PAP, CO, CI - Last Documented Arterial Blood Pressure 112/53 Pulmonary Artery Pressure 29/15 Cardiac Output 4 Cardiac Index 2.2 - Exam Igeneral: The patient is awake and alert, in no distress, and does not appear acutely ill. On 2 L nasal cannula Skin: Skin is warm and dry and no rashes or lesions are noted. Eye: Pupils are equal, round and reactive to light, extra-ocular movements are intact; there is normal conjunctiva bilaterally. Ears, nose, mouth and throat: There are moist mucous membranes and no oral lesions. Neck: The neck is supple, there is no tenderness or JVD. Cardiovascular: There is a regular rate and rhythm. 2/6 systolic murmur throughout the precordium and positive pericardial rub Respiratory: Diminished breath sound bilaterally no crackles rhonchi or wheezes Gastrointestinal: Soft, non-distended, non-tender abdomen without masses or organomegaly noted. Neurological: Alert and oriented x 3 no gross focal deficit Psychiatric: Normal mood, affect and no mental status examination - Labs CBC & Chem 7: 05/13/23 04:05 05/13/23 04:05 Labs: Abnormal Lab Results - Last 24 Hours (Table) 05/12/23 05/12/23 05/12/23 Range/Units 15:26 16:54 18:35 WBC (3.8-10.6) k/uL RBC (4.30-5.90) m/uL Hgb (13.0-17.5) gm/dL Hct (39.0-53.0) % Plt Count (150-450) k/uL Neutrophils # (1.3-7.7) k/uL Sodium (137-145) mmol/L Glucose (74-99) mg/dL POC Glucose (mg/dL) 165 H 121 H 145 H (70-110) mg/dL Total Bilirubin (0.2-1.3) mg/dL Total Protein (6.3-8.2) g/dL Albumin (3.5-5.0) g/dL 05/12/23 05/12/23 05/13/23 Range/Units 22:03 23:07 00:37 WBC (3.8-10.6) k/uL RBC (4.30-5.90) m/uL Hgb (13.0-17.5) gm/dL Hct (39.0-53.0) % Plt Count (150-450) k/uL Neutrophils # (1.3-7.7) k/uL Sodium (137-145) mmol/L Glucose (74-99) mg/dL POC Glucose (mg/dL) 129 H 197 H 139 H (70-110) mg/dL Total Bilirubin (0.2-1.3) mg/dL Total Protein (6.3-8.2) g/dL Albumin (3.5-5.0) g/dL 05/13/23 05/13/23 05/13/23 Range/Units 03:13 04:05 04:05 WBC 14.8 H (3.8-10.6) k/uL RBC 3.00 L (4.30-5.90) m/uL Hgb 9.6 L D (13.0-17.5) gm/dL Hct 27.4 L (39.0-53.0) % Plt Count 143 L (150-450) k/uL Neutrophils # 12.0 H (1.3-7.7) k/uL Sodium 136 L (137-145) mmol/L Glucose 108 H (74-99) mg/dL POC Glucose (mg/dL) 111 H (70-110) mg/dL Total Bilirubin 1.9 H (0.2-1.3) mg/dL Total Protein 5.3 L (6.3-8.2) g/dL Albumin 3.3 L (3.5-5.0) g/dL 05/13/23 05/13/23 05/13/23 Range/Units 04:09 05:55 06:22 WBC (3.8-10.6) k/uL RBC (4.30-5.90) m/uL Hgb (13.0-17.5) gm/dL Hct (39.0-53.0) % Plt Count (150-450) k/uL Neutrophils # (1.3-7.7) k/uL Sodium (137-145) mmol/L Glucose (74-99) mg/dL POC Glucose (mg/dL) 124 H 120 H 122 H (70-110) mg/dL Total Bilirubin (0.2-1.3) mg/dL Total Protein (6.3-8.2) g/dL Albumin (3.5-5.0) g/dL 05/13/23 05/13/23 05/13/23 Range/Units 08:05 09:40 11:07 WBC (3.8-10.6) k/uL RBC (4.30-5.90) m/uL Hgb (13.0-17.5) gm/dL Hct (39.0-53.0) % Plt Count (150-450) k/uL Neutrophils # (1.3-7.7) k/uL Sodium (137-145) mmol/L Glucose (74-99) mg/dL POC Glucose (mg/dL) 211 H 171 H 166 H (70-110) mg/dL Total Bilirubin (0.2-1.3) mg/dL Total Protein (6.3-8.2) g/dL Albumin (3.5-5.0) g/dL Assessment and Plan Assessment: Impression:bicuspid aortic valve stenosis, status post bioprosthetic aortic valve replacement with root enlargement, postoperative day #2 Benign essential hypertension History of syncope Mild to moderate COPD with FEV1 of 64% prior to surgery Remote history of alcohol use. Family history of premature coronary artery disease Postoperative blood loss anemia, expected Recommendations: Continue incentive spirometry Encourage ambulation. Continue GI and DVT prophylaxis Continue daily labs and daily x-rays of the chest. Continue daily weights Continue bronchodilators Continue cardiac meds including aspirin statin Plavix beta-blockers Will continue to follow. Time with Patient: Less than 30
[2023-05-13 16:40] LABS: Glucose,Whole Blood 210 mg/dL (70-110)
[2023-05-13 20:57] LABS: Glucose,Whole Blood 236 mg/dL (70-110)
[2023-05-13] MEDS: INSULIN DETEMIR (LEVEMIR) 100 UNIT/ML SYR SQ SCH (21:09)
[2023-05-14] MEDS: MELATONIN 5 MG TABLET PO SCH (00:24)
[2023-05-14] MEDS: IPRATROPIUM-ALBUTEROL 3 ML NEB INHALATION PRN (02:38)
[2023-05-14 04:09] LABS: Basophils % (A) 0 %; Eosinophils % (A) 0 %; HCT 26.4 % (39.0-53.0); HGB 8.8 gm/dL (13.0-17.5); Lymphocytes # (A) 1.1 k/uL (1.0-4.8); Lymphocytes % (A) 9 %; MCH 31.2 pg (25.0-35.0); MCHC 33.4 g/dL (31.0-37.0); MCV 93.4 fL (80.0-100.0); Mean Platelet Volume 8.2; Monocytes # (A) 0.8 k/uL (0-1.0); Monocytes % (A) 6 %; Neutrophils # (A) 10.8 k/uL (1.3-7.7); Neutrophils % (A) 83 %; Platelet Count 164 k/uL (150-450); RBC 2.83 m/uL (4.30-5.90); RDW 12.2 % (11.5-15.5)
[2023-05-14 04:18] LABS: ALT 36 U/L (4-49); AST 32 U/L (17-59); African American GFR (CKD) >90 (>60 ml/min/1.73 sqM); Albumin 3.2 g/dL (3.5-5.0); Alkaline Phosphatase 62 U/L (38-126); Anion Gap 5 mmol/L; Blood Urea Nitrogen 17 mg/dL (9-20); Calcium 8.3 mg/dL (8.4-10.2); Carbon Dioxide 28 mmol/L (22-30); Chloride 100 mmol/L (98-107); Glucose 149 mg/dL (74-99); Non-African American GFR(CKD) >90 (>60 ml/min/1.73 sqM); Potassium 4.5 mmol/L (3.5-5.1); Sodium 133 mmol/L (137-145); Total Bilirubin 1.4 mg/dL (0.2-1.3); Total Protein 5.3 g/dL (6.3-8.2)
[2023-05-14 06:28] LABS: Glucose,Whole Blood 166 mg/dL (70-110)
[2023-05-14] MEDS: FERROUS SULFATE 325 MG TAB PO SCH (06:45)
[2023-05-14] MEDS: ASCORBIC ACID 500 MG TAB PO SCH (06:47)
[2023-05-14] MEDS ORDERED: SENNOSIDES-DOCUSATE SODIUM 1 EACH TAB PO PRN (06:59)
--- NOTE | 2023-05-14 07:11 | XR ---
EXAMINATION TYPE: XR chest 1V portable DATE OF EXAM: 05/14/2023 6:06 AM CLINICAL INDICATION:Male, 53 years old with history of pulmonary vascular congestion; PHH COMPARISON: Chest radiograph from one day prior. TECHNIQUE: XR chest 1V portable Frontal view of the chest. FINDINGS: Stable left-sided chest tube and removal of mediastinal drainage catheter. Cordis sheath h as been removed. Overlying sternal wires lung with left atrial appendage clip are redemonstrated. Ove rlying epicardial pacer wires redemonstrated. Atrial appendage occlusion device noted. The aortic dionicio ve repair changes also present Persistent cardiomegaly with bibasilar opacities and mild central vascular congestion. No pneumothora x seen bilaterally. Osseous structures intact. IMPRESSION: Similar cardiomegaly with bibasilar opacities favoring atelectasis and small bilateral pl eural effusions along with mild central vascular congestion.
--- NOTE | 2023-05-14 07:17 | P.PN ---
Subjective Progress Note Date: 05/14/23 Principal diagnosis: Calcific bicuspid aortic valve stenosis. Previous medical history of hypertension, hyperlipidemia, syncope, previous tobacco dependence, mild COPD, ETOH use with greater than 8 drinks per week, occasional marijuana use, and family history of premature coronary artery disease POD #3 aortic valve replacement with 27 mm Dunne Inspiris bovine valve prosthesis with aortic root enlargement with woven dacron patch (Bill Dacosta technique) and ligation of the left atrial appendage with 35mm AtriCure clamp. SUKHJINDER by anesthesia. Epiaortic ultrasonography Postoperative acute blood loss anemia, expected given hemodilution Leukocytosis, likely reactive The patient was seen and examined this morning sitting up in recliner in the intensive care unit in no acute distress. Does complain of postsurgical pain with coughing and deep breathing, does complain of mild shortness of breath. The patient does state he had a rough night last night with lack of sleep, up to the bathroom multiple times for bowel movements, and pain with coughing. Remains in sinus tach, hemodynamically stable. Currently on 3 L nasal cannula with oxygen saturation in the mid 90s, still only able to achieve 500 mL on his incentive spirometry. Chest x-ray, labs reviewed. Left pleural chest tube remains. Patient did ambulate in the hallway yesterday without difficulty. No other new concerns. Objective - Vital Signs Vital signs: Vital Signs Temp 98.6 F 05/14/23 04:00 Pulse 112 H 05/14/23 06:00 Resp 41 H 05/14/23 06:00 BP 120/73 05/14/23 06:00 Pulse Ox 93 L 05/14/23 06:00 FiO2 50 05/11/23 16:50 Intake & Output 05/13/23 05/14/23 05/14/23 18:59 06:59 18:59 Intake Total 87.595 350 Output Total 990 760 Balance -902.405 -410 Weight 82.5 kg Intake: IV 78 Lactated Ringers 1,000 ml 60 @ 20 mls/hr IV .Q24H DAPHNE Rx#:[id number] NS for pressure flush 18 Intake, IV Titration 9.595 Amount Insulin Regular 100 unit 9.595 In Sodium Chloride 0.9% 100 ml @ Per Protocol IV .Q0M DAPHNE Rx#:[id number] Oral 350 Output: Chest Tube Drainage 90 280 Chest Tube Left 20 280 Left Pleural/Mediastinal 70 Urine 900 480 Other: Voiding Method Indwelling Catheter Indwelling Catheter # Bowel Movements 1 ABP, PAP, CO, CI - Last Documented Arterial Blood Pressure 112/53 Pulmonary Artery Pressure 29/15 Cardiac Output 4 Cardiac Index 2.2 - Exam CONSTITUTIONAL: Appears somewhat comfortable, cooperative, no acute distress RESPIRATORY: Lungs sounds diminished bilaterally with faint expiratory wheezes present. Respirations even, nonlabored. Currently on 3 L nasal cannula with oxygen saturation 94%. Able to achieve 500 mL on incentive spirometry. Strong productive cough. CARDIOVASCULAR: S1, S2 present. Regular rate and rhythm, sinus tach on telemetry. Sternum stable. Palpable peripheral pulses bilaterally. No edema present. No calf pain or tenderness noted. Heart hugger in place with patient demonstrating appropriate use. Antiembolism stockings, SCDs present. GASTROINTESTINAL: Abdomen soft, nontender, nondistended. Active bowel sounds present 4 quadrants. Tolerating diet. Positive bowel movements last night GENITOURINARY: Matthew present draining clear, yellow urine. Output overnight 30-45 mL per hour, 600 mL after IV Lasix given yesterday, 1350 mL in the last 24 hours INTEGUMENTARY: Skin is warm and dry with evidence of good perfusion. Anterior chest incision well approximated and covered with dry intact dressing NEUROLOGIC: Cranial nerves II through XII intact MUSKULOSKELETAL: Able to move all extremities, strength equal bilaterally, steady gait PSYCHIATRIC: Alert and oriented to person place and time, appropriate affect, intact judgment and insight INVASIVE LINES AND TUBES: Left pleural chest tube present and connected to wall suction, no air leaks present, 140 mL serosanguineous drainage overnight, 400 mL in the last 24 hours. A/V epicardial pacemaker wires present, grounded - Allied health notes Allied health notes reviewed: nursing - Labs CBC & Chem 7: 05/14/23 03:12 05/14/23 03:12 Labs: Abnormal Lab Results - Last 24 Hours (Table) 05/13/23 05/13/23 05/13/23 Range/Units 04:05 08:05 09:40 WBC (3.8-10.6) k/uL RBC (4.30-5.90) m/uL Hgb (13.0-17.5) gm/dL Hct (39.0-53.0) % Neutrophils # (1.3-7.7) k/uL Sodium 136 L (137-145) mmol/L Glucose 108 H (74-99) mg/dL POC Glucose (mg/dL) 211 H 171 H (70-110) mg/dL Calcium (8.4-10.2) mg/dL Total Bilirubin 1.9 H (0.2-1.3) mg/dL Total Protein 5.3 L (6.3-8.2) g/dL Albumin 3.3 L (3.5-5.0) g/dL 05/13/23 05/13/23 05/13/23 Range/Units 11:07 16:39 20:56 WBC (3.8-10.6) k/uL RBC (4.30-5.90) m/uL Hgb (13.0-17.5) gm/dL Hct (39.0-53.0) % Neutrophils # (1.3-7.7) k/uL Sodium (137-145) mmol/L Glucose (74-99) mg/dL POC Glucose (mg/dL) 166 H 210 H 236 H (70-110) mg/dL Calcium (8.4-10.2) mg/dL Total Bilirubin (0.2-1.3) mg/dL Total Protein (6.3-8.2) g/dL Albumin (3.5-5.0) g/dL 05/14/23 05/14/23 05/14/23 Range/Units 03:12 03:12 06:26 WBC 13.0 H (3.8-10.6) k/uL RBC 2.83 L (4.30-5.90) m/uL Hgb 8.8 L (13.0-17.5) gm/dL Hct 26.4 L (39.0-53.0) % Neutrophils # 10.8 H (1.3-7.7) k/uL Sodium 133 L (137-145) mmol/L Glucose 149 H (74-99) mg/dL POC Glucose (mg/dL) 166 H (70-110) mg/dL Calcium 8.3 L (8.4-10.2) mg/dL Total Bilirubin 1.4 H (0.2-1.3) mg/dL Total Protein 5.3 L (6.3-8.2) g/dL Albumin 3.2 L (3.5-5.0) g/dL - Imaging and Cardiology Chest x-ray: image reviewed Assessment and Plan Assessment: Calcific bicuspid aortic valve stenosis, status post bioprosthetic aortic valve replacement with root enlargement History of hypertension Hyperlipidemia, treated, cholesterol 103, LDL 42 Recent syncope Previously undiagnosed diabetes, preoperative hemoglobin A1c 6.8% Previous tobacco dependence Mild COPD, preoperative FEV1 64% of predicted ETOH use with greater than 8 drinks per week Occasional marijuana use Family history of premature coronary artery disease Postoperative acute blood loss anemia, expected given hemodilution Leukocytosis, likely reactive Plan: Continue to maximize medical therapy with aspirin, statin, Plavix, beta-deondre. Will increase beta-deondre therapy as tolerated Wean O2 as tolerated. Encourage incentive spirometry use 10 times every hour while awake. Bronchodilators per pulmonology, Pulmicort added Increase activity, ambulate as tolerated. PT/OT/cardiac rehab consulted Will monitor daily labs and x-rays. Electrolyte replacement per protocol. Will give IV lasix GI/DVT prophylaxis Insulin management per internal medicine Pain control with current medication regimen, oxy changed to [place] Will discontinue left pleural chest tube Discontinue Matthew catheter, may bladder scan and straight cath for greater than 300 mL residual Continue to record strict accurate intake and output Daily weights Will change stool softeners to as needed Will place transfer orders for 3 S. cardiac stepdown unit, may transfer when bed available More recommendations to follow
[2023-05-14] MEDS: BUDESONIDE 1 MG/2 ML NEBU INHALATION SCH (08:03)
[2023-05-14] MEDS: FUROSEMIDE 10 MG/ML 2 ML VIAL IV ONE (09:37)
[2023-05-14 11:05] LABS: Glucose,Whole Blood 172 mg/dL (70-110)
[2023-05-14] MEDS: INSULIN ASPART (NovoLOG) 100 UNIT/ML VIAL SQ SCH (11:34)
--- NOTE | 2023-05-14 12:00 | P.PN ---
Subjective Progress Note Date: 05/14/23 53 year old M with PMH of HTN, HLD, bicuspid AV stenosis, history of smoking, daily drinker presents to [facility] for elective surgery. He underwent AV replacement with Dr. Quevedo on 05/11. [facility] has been consulted for medical management of this patient. Extubated successfully on 05/11. 05/12 Patient was seen and examined. He reports well controlled chest pain at the site of incision. Able to achieve 500 cc on IS. Currently on 2L NC. NS at 20 cc/hr. Insulin drip at 3.5 units/hr. Amezcua catheter in placed. Right IJ, mediastinal and left chest tube in place. CBC WBC 15, Hg 11.1, Hct 31.8. CMP BUN 8 Cr 0.54, glu 110, ALT 55, total protein 5.4. CXR done today shows swan demetrius, mediastinal and left chest tube in place with no acute process. 05/13 Patient was seen and examined. Tired. A little SOB with exertion. Passing gas no bowel movement. Currently on 3L NC. Insulin drip at 6 units/hr. CBC WBC 14.8, Hg 9.6, Hct 27.4, Plt 143. CMP Na 136, glu 108, T. Bili 1.9, alb 3.3. POC glucose 100-211 over the past 24H. CXR done today shows increased pulmonary vascular congestion. Plans for Lasix 20 mg IV today. Plans to discontinue cordic, arterial line, mediastinal chest tube today per CT surgery. 05/14 Patient was seen and examined. Currently on 3L NC. Insulin drip transiti oned to SQ insulin yesterday (Levemir 21 units QHS and Novolog 7 units TID). POC glucose 122-236 over the past 24H needing 12 units on the ISS. CBC WBC 13, Hg 8.8, Hct 26.4. CMP Na 133, glu 149, T. Bili 1.4, alb 3.2. CXR done today shows continued pulmonary vascular congestion. Lasix 20 mg IV x [address] surgery. Plans to discontinue left chest tube ad amezcua catheter today. General: non toxic, no distress, appears at stated age Derm: warm, dry Head: atraumatic, normocephalic, symmetric, R IJ Eyes: EOMI, no lid lag, anicteric sclera Mouth: no lip lesion, mucus membranes moist Cardiovascular: S1S2 reg, no murmur, heart hugger in place Lungs: CTA bilateral, no rhonchi, no rales , no accessory muscle use Abdominal: soft, nontender to palpation, no guarding, no appreciable organomegaly, + BS, + Amezcua Ext: no gross muscle atrophy, no edema, no contractures Neuro: no focal neuro deficits Psych: Alert, oriented, appropriate affect Based on my assessment of this patient, this patient meets a high complexity level of care. Patient has a history of bicuspid AV stenosis status post AV replacement POD 2 with severe exacerbation or progression of disease which poses a threat to life or bodily function. Acute blood loss anemia: Expected result of surgery. Daily CBC. Transfuse if Hg < 7. Pulmonary vascular congestion: Lasix 20 mg IV x 1 05/13 and 05/14. Repeat CXR tomorrow. Diabetes mellitus with hyperglycemia: A1c 6.8. Increase Levemir 27 units QHS and Novolog 9 units TID along with low dose ISS. Accuchecks ACHS. Hypoglycemic precautions. Leukocytosis: Likely reactive. Monitor fever profile. No signs of active infection. Transaminitis: Possibly related to EtOH abuse. Monitor. Hypertension: Metoprolol 25 mg PO BID. Dyslipidemia: Lipitor 40 mg PO QHS. h/o EtOH abuse: Monitor for withdrawal symptoms. CODE STATUS: FULL CODE. DVT Prophylaxis: Heparin SQ GI Prophylaxis: Protonix Designated medical POA if patient is not able to make medical decisions for themselves: I have reviewed the following client service consultant notes: Pulmonary, Cardiology, CT surgery note. I have reviewed the results of the following tests: CBC, CMP. I have ordered the following tests: Agree with CBC, BMP and CXR ordered for tomorrow morning. I have discussed the care of this patient with the following independent historian: I have independently interpreted the following test below: CXR. I have discussed the management of this patient with the following physician: Discussed with Adrianne Polk. This patient has a high risk of morbidity due to the following reasons: Patient requires adjustments in insulin which requires intensive monitoring for hypoglycemic episodes. Patient required IV Lasix which requires daily monitoring of renal function. Objective - Vital Signs Vital signs: Vital Signs Temp 98.6 F 05/14/23 04:00 Pulse 108 H 05/14/23 07:00 Resp 32 H 05/14/23 07:00 BP 109/73 05/14/23 07:00 Pulse Ox 95 05/14/23 07:00 FiO2 50 05/11/23 16:50 Intake & Output 05/13/23 05/14/23 05/14/23 18:59 06:59 18:59 Intake Total 87.595 350 Output Total 990 760 Balance -902.405 -410 Weight 82.5 kg Intake: IV 78 Lactated Ringers 1,000 ml 60 @ 20 mls/hr IV .Q24H DAPHNE Rx#:[id number] NS for pressure flush 18 Intake, IV Titration 9.595 Amount Insulin Regular 100 unit 9.595 In Sodium Chloride 0.9% 100 ml @ Per Protocol IV .Q0M DAPHNE Rx#:[id number] Oral 350 Output: Chest Tube Drainage 90 280 Chest Tube Left 20 280 Left Pleural/Mediastinal 70 Urine 900 480 Other: Voiding Method Indwelling Catheter Indwelling Catheter # Bowel Movements 1 ABP, PAP, CO, CI - Last Documented Arterial Blood Pressure 112/53 Pulmonary Artery Pressure 29/15 Cardiac Output 4 Cardiac Index 2.2 - Labs CBC & Chem 7: 05/14/23 03:12 05/14/23 03:12 Labs: Abnormal Lab Results - Last 24 Hours (Table) 05/13/23 05/13/23 05/13/23 Range/Units 09:40 11:07 16:39 WBC (3.8-10.6) k/uL RBC (4.30-5.90) m/uL Hgb (13.0-17.5) gm/dL Hct (39.0-53.0) % Neutrophils # (1.3-7.7) k/uL Sodium (137-145) mmol/L Glucose (74-99) mg/dL POC Glucose (mg/dL) 171 H 166 H 210 H (70-110) mg/dL Calcium (8.4-10.2) mg/dL Total Bilirubin (0.2-1.3) mg/dL Total Protein (6.3-8.2) g/dL Albumin (3.5-5.0) g/dL 05/13/23 05/14/23 05/14/23 Range/Units 20:56 03:12 03:12 WBC 13.0 H (3.8-10.6) k/uL RBC 2.83 L (4.30-5.90) m/uL Hgb 8.8 L (13.0-17.5) gm/dL Hct 26.4 L (39.0-53.0) % Neutrophils # 10.8 H (1.3-7.7) k/uL Sodium 133 L (137-145) mmol/L Glucose 149 H (74-99) mg/dL POC Glucose (mg/dL) 236 H (70-110) mg/dL Calcium 8.3 L (8.4-10.2) mg/dL Total Bilirubin 1.4 H (0.2-1.3) mg/dL Total Protein 5.3 L (6.3-8.2) g/dL Albumin 3.2 L (3.5-5.0) g/dL 05/14/23 Range/Units 06:26 WBC (3.8-10.6) k/uL RBC (4.30-5.90) m/uL Hgb (13.0-17.5) gm/dL Hct (39.0-53.0) % Neutrophils # (1.3-7.7) k/uL Sodium (137-145) mmol/L Glucose (74-99) mg/dL POC Glucose (mg/dL) 166 H (70-110) mg/dL Calcium (8.4-10.2) mg/dL Total Bilirubin (0.2-1.3) mg/dL Total Protein (6.3-8.2) g/dL Albumin (3.5-5.0) g/dL
--- NOTE | 2023-05-14 12:52 | US ---
EXAMINATION TYPE: US chest DATE OF EXAM: 05/14/2023 COMPARISON: chest plain film same day CLINICAL INDICATION: Male, 53 years old with history of effusion; pleural effusion TECHNIQUE: Targeted ultrasound of the posterior lower bilateral hemithoraces EXAM MEASUREMENTS: Right Pleural Effusion pocket size: 1.9 cm Right skin surface to fluid distance: 3.1 cm Left Pleural Effusion pocket size: 1.8 cm Left skin surface to fluid distance: 3.2 cm Right side NOT marked for possible thoracentesis outside the dept. Left side NOT marked for possible thoracentesis outside the dept. Pulmonologists are able to review the images in the patient?s EMR. IMPRESSIONS: Trace bilateral pleural effusions.
--- NOTE | 2023-05-14 12:55 | PN ---
PROGRESS NOTE HISTORY OF PRESENT ILLNESS: Luke is a 53-year-old gentleman with aortic valve replacement, doing well, today is postop day #3. Other than tachycardia, which is sinus tachycardia, the patient is doing well. He is anemic with a hemoglobin of 8.8. PHYSICAL EXAMINATION: VITAL SIGNS: Heart rate is 100 beats per minute. Blood pressure is 99/67. Respiratory rate is 18. LUNGS: There is diminished air entry bilaterally. HEART: Reveals first and second heart sounds. No gallop. EXTREMITIES: Did not reveal any edema. ASSESSMENT AND PLAN: Aortic stenosis secondary to bicuspid aortic valve, status post aortic valve replacement with root expansion. The patient is on aspirin, Lipitor, metoprolol, and Plavix. He will continue current medications. The patient has been encouraged. The patient will work on incentive spirometry. MMODL / IJN: [id number] /
--- NOTE | 2023-05-14 13:51 | P.PN ---
Subjective Progress Note Date: 05/14/23 Principal diagnosis: POD 3 aortic valve replacement with 27 mm Dunne Inspiris bovine valve prosthesis with aortic root enlargement with woven dacron patch (Bill Dacosta technique) This is a 53-year-old male patient with a history of hypertension and hyperlipidemia who had developed an acute episode of shortness of breath while out hunting in the cold. He had been seen and evaluated by cardiology and during his evaluation he was found to have a bicuspid aortic valve stenosis. He was brought in today surgery. He had undergone aortic valve replacement with a Inspiris bovine valve prosthesis and aortic root enlargement along with ligation of the left atrial appendage. He is seen in the postoperative period in the intensive care unit. He is intubated on mechanical ventilator. Current settings are assist-control mode at a rate of 16, tidal volume 500, FiO2 70% and a PEEP of 10. Arterial blood gases revealed a PaO2 of 278, pCO2 41 and a pH of 7.38 on 100% FiO2. He is currently been weaned down to 50% FiO2. He is sedated on propofol at 40 mcg/kg/min. Lactated Ringer's at 50 MLS per hour. Insulin drip at 1 unit/h. Mediastinal and left pleural chest tube remains in place. PA pressure 36/23. Cardiac output 4.3. Cardiac index 2.3. Chest x-ray reveals postsurgical changes with appropriate endotracheal tube, gastric tube, [place]uma catheter and chest tubes in good position. No evidence of pneumothorax. White count 14.0. Hemoglobin 11.4. Platelets 149. Sodium 139. Potassium 4.1. Bicarb 22. BUN 6. Creatinine 0.48. Glucose 114. Magnesium 3.2. Calcium 5.1. Albumin 2.9. He is continued on bronchodilators. Heparin for DVT prophylaxis. Patient was reevaluated today on 05/12/2023, he is now postoperative day #1, patient was extubated yesterday shortly after he was admitted to the ICU, he is now on 2 L nasal cannula, doing great with incentive spirometry, chest x-ray showing mostly atelectasis, mediastinal/left pleural chest tubes all remain in place, no evidence of pneumothorax on the chest x-ray. Continues to have right internal jugular [place]/Cordis. Today's labs are reassuring hemoglobin is 11.1 WBC count is 15, Renal profile is normal electrolytes are normal Patient was reevaluated today on 05/13/2023, patient continues to do well, remains on 3 L nasal cannula, not in any distress, continues to achieve about 500 cc with his incentive spirometry, patient had no major issues overnight except for some vague chest wall discomfort. Chest x-ray continues to be reassuring, minimal bibasilar atelectasis otherwise unremarkable. WBC count is 14.8 hemoglobin 9.6Basic metabolic profile is normal and renal profile is normal Patient was reevaluated today on 05/14/2023, patient remains in the ICU overflow, he is doing great. He is now postoperative day #3. Patient has mostly some postsurgical pain, no significant shortness of breath, remains on 2 L nasal cannula with O2 sats of 96% chest x-ray showed minimal atelectasis and component of some congestive heart failure with small right-sided pleural effusion. Not large enough to consider thoracentesis based on ultrasound of the chest patient will likely improve with gentle diuresis and this is being addressed by thoracic surgery on the caseWBC count is 13 hemoglobin 8.8 basic metabolic profile is normal renal profile is normal Objective - Vital Signs Vital signs: Vital Signs Temp 98.2 F 05/14/23 12:00 Pulse 101 H 05/14/23 13:00 Resp 25 H 05/14/23 13:00 BP 125/70 05/14/23 13:00 Pulse Ox 96 05/14/23 13:00 FiO2 50 05/11/23 16:50 Intake & Output 05/13/23 05/14/23 05/14/23 18:59 06:59 18:59 Intake Total 87.595 350 Output Total 169 964 2521 Balance -902.405 -410 -1015 Weight 82.5 kg Intake: IV 78 Lactated Ringers 1,000 ml 60 @ 20 mls/hr IV .Q24H DAPHNE Rx#:[id number] NS for pressure flush 18 Intake, IV Titration 9.595 Amount Insulin Regular 100 unit 9.595 In Sodium Chloride 0.9% 100 ml @ Per Protocol IV .Q0M DAPHNE Rx#:[id number] Oral 350 Output: Chest Tube Drainage 90 280 Chest Tube Left 20 280 Left Pleural/Mediastinal 70 Urine 927 056 3790 Other: Voiding Method Indwelling Catheter Indwelling Catheter Indwelling Catheter # Bowel Movements 1 ABP, PAP, CO, CI - Last Documented Arterial Blood Pressure 112/53 Pulmonary Artery Pressure 29/15 Cardiac Output 4 Cardiac Index 2.2 - Exam Igeneral: The patient is awake and alert, in no distress, and does not appear acutely ill. On 2 L nasal cannula, O2 saturation 96% Skin: Skin is warm and dry and no rashes or lesions are noted. Eye: Pupils are equal, round and reactive to light, extra-ocular movements are intact; there is normal conjunctiva bilaterally. Ears, nose, mouth and throat: There are moist mucous membranes and no oral lesions. Neck: The neck is supple, there is no tenderness or JVD. Cardiovascular: There is a regular rate and rhythm. 2/6 systolic murmur throughout the precordium and positive pericardial rub Respiratory: Diminished breath sound bilaterally no crackles rhonchi or wheezes Gastrointestinal: Soft, non-distended, non-tender abdomen without masses or organomegaly noted. Neurological: Alert and oriented x 3 no gross focal deficit Psychiatric: Normal mood, affect and no mental status examination - Labs CBC & Chem 7: 05/14/23 03:12 05/14/23 03:12 Labs: Abnormal Lab Results - Last 24 Hours (Table) 05/13/23 05/13/23 05/14/23 Range/Units 16:39 20:56 03:12 WBC 13.0 H (3.8-10.6) k/uL RBC 2.83 L (4.30-5.90) m/uL Hgb 8.8 L (13.0-17.5) gm/dL Hct 26.4 L (39.0-53.0) % Neutrophils # 10.8 H (1.3-7.7) k/uL Sodium (137-145) mmol/L Glucose (74-99) mg/dL POC Glucose (mg/dL) 210 H 236 H (70-110) mg/dL Calcium (8.4-10.2) mg/dL Total Bilirubin (0.2-1.3) mg/dL Total Protein (6.3-8.2) g/dL Albumin (3.5-5.0) g/dL 05/14/23 05/14/23 05/14/23 Range/Units 03:12 06:26 11:03 WBC (3.8-10.6) k/uL RBC (4.30-5.90) m/uL Hgb (13.0-17.5) gm/dL Hct (39.0-53.0) % Neutrophils # (1.3-7.7) k/uL Sodium 133 L (137-145) mmol/L Glucose 149 H (74-99) mg/dL POC Glucose (mg/dL) 166 H 172 H (70-110) mg/dL Calcium 8.3 L (8.4-10.2) mg/dL Total Bilirubin 1.4 H (0.2-1.3) mg/dL Total Protein 5.3 L (6.3-8.2) g/dL Albumin 3.2 L (3.5-5.0) g/dL Assessment and Plan Assessment: Impression:bicuspid aortic valve stenosis, status post bioprosthetic aortic valve replacement with root enlargement, postoperative day #3 Benign essential hypertension History of syncope Mild to moderate COPD with FEV1 of 64% prior to surgery Remote history of alcohol use. Family history of premature coronary artery disease Postoperative blood loss anemia, expected Right-sided pleural effusion, small, most likely transudative in nature and will improve with diuretics. Recommendations: Continue incentive spirometry Gentle diuresis. Reviewed ultrasound of the chest, the effusion is not large enough to consider thoracentesis at this point Continue ambulation. Continue GI and DVT prophylaxis Continue daily labs and daily x-rays of the chest. Continue daily weights Continue bronchodilators Continue cardiac meds including aspirin statin Plavix beta-blockers Will continue to follow. Time with Patient: Less than 30
[2023-05-14 16:04] LABS: Glucose,Whole Blood 148 mg/dL (70-110)
[2023-05-14] MEDS: HYDROcodone/APAP 10-325MG 1 EACH TAB PO PRN (16:55)
[2023-05-14 20:54] LABS: Glucose,Whole Blood 135 mg/dL (70-110)
[2023-05-14] MEDS: INSULIN DETEMIR (LEVEMIR) 100 UNIT/ML SYR SQ SCH (21:06)
[2023-05-15 00:36] LABS: Glucose,Whole Blood 106 mg/dL (70-110)
[2023-05-15] MEDS: MELATONIN 3 MG TABLET PO SCH (00:50)
[2023-05-15 06:33] LABS: Glucose,Whole Blood 163 mg/dL (70-110)
--- NOTE | 2023-05-15 07:40 | P.PN ---
Subjective Progress Note Date: 05/15/23 Principal diagnosis: Calcific bicuspid aortic valve stenosis. Previous medical history of hypertension, hyperlipidemia, syncope, previous tobacco dependence, mild COPD, ETOH use with greater than 8 drinks per week, occasional marijuana use, and family history of premature coronary artery disease POD #4 aortic valve replacement with 27 mm Dunne Inspiris bovine valve prosthesis with aortic root enlargement with woven dacron patch (Bill Dacosta technique) and ligation of the left atrial appendage with 35mm AtriCure clamp. SUKHJINDER by anesthesia. Epiaortic ultrasonography Postoperative acute blood loss anemia, expected given hemodilution Leukocytosis, likely reactive The patient was seen and examined this morning sitting up in recliner in the intensive care unit in no acute distress. Does complain of postsurgical pain with coughing and deep breathing, does complain of mild shortness of breath. The patient does state he had a better night last night. present, post open heart care discussed at length with patient and his . Remains in sinus rhythm, hemodynamically stable. Currently on 2 L nasal cannula with oxygen saturation in the mid 90s, still only able to achieve 500 mL on his incentive spirometry. Chest x-ray, labs reviewed. Ultrasound of the chest completed yesterday reveals minimal bilateral effusions, no need for thoracentesis. Patient did ambulate in the hallway yesterday without difficulty. Transfer orders were placed yesterday for 3 S. cardiac stepdown unit, however there is no bed availability at this time. No other new concerns. Objective - Vital Signs Vital signs: Vital Signs Temp 98.7 F 05/15/23 04:00 Pulse 98 05/15/23 04:00 Resp 20 05/15/23 04:00 BP 101/69 05/15/23 04:00 Pulse Ox 95 05/15/23 04:00 FiO2 2 05/15/23 00:00 Intake & Output 05/14/23 05/15/23 05/15/23 18:59 06:59 18:59 Intake Total 810 Output Total 1375 500 Balance -1375 310 Intake: Oral 810 Output: Urine 1375 500 Other: Voiding Method Indwelling Catheter Toilet Urinal # Voids 1 # Bowel Movements 1 ABP, PAP, CO, CI - Last Documented Arterial Blood Pressure 112/53 Pulmonary Artery Pressure 29/15 Cardiac Output 4 Cardiac Index 2.2 - Exam CONSTITUTIONAL: Appears more comfortable, cooperative, no acute distress RESPIRATORY: Lungs sounds diminished bilaterally. Respirations even, nonlabored. Currently on 2 L nasal cannula with oxygen saturation 95%. Able to achieve 500 mL on incentive spirometry. Strong productive cough. CARDIOVASCULAR: S1, S2 present. Regular rate and rhythm, sinus rhythm on telemetry. Sternum stable. Palpable peripheral pulses bilaterally. No edema present. No calf pain or tenderness noted. Heart hugger in place with patient demonstrating appropriate use. Antiembolism stockings, SCDs present. GASTROINTESTINAL: Abdomen soft, nontender, nondistended. Active bowel sounds present 4 quadrants. Tolerating diet. Positive bowel movement 05/14 GENITOURINARY: Continues to void clear, yellow urine. Output 1875 mL in the last 24 hours INTEGUMENTARY: Skin is warm and dry with evidence of good perfusion. Anterior chest incision well approximated NEUROLOGIC: Cranial nerves II through XII intact MUSKULOSKELETAL: Able to move all extremities, strength equal bilaterally, steady gait PSYCHIATRIC: Alert and oriented to person place and time, appropriate affect, intact judgment and insight - Allied health notes Allied health notes reviewed: nursing - Labs CBC & Chem 7: 05/15/23 10:53 05/15/23 10:53 Labs: Abnormal Lab Results - Last 24 Hours (Table) 05/14/23 05/14/23 05/14/23 Range/Units 11:03 16:02 20:53 POC Glucose (mg/dL) 172 H 148 H 135 H (70-110) mg/dL 05/15/23 Range/Units 06:32 POC Glucose (mg/dL) 163 H (70-110) mg/dL - Imaging and Cardiology Chest x-ray: image reviewed Assessment and Plan Assessment: Calcific bicuspid aortic valve stenosis, status post bioprosthetic aortic valve replacement with root enlargement History of hypertension Hyperlipidemia, treated, cholesterol 103, LDL 42 Recent syncope Previously undiagnosed diabetes, preoperative hemoglobin A1c 6.8% Previous tobacco dependence Mild COPD, preoperative FEV1 64% of predicted ETOH use with greater than 8 drinks per week Occasional marijuana use Family history of premature coronary artery disease Postoperative acute blood loss anemia, expected given hemodilution Leukocytosis, likely reactive Plan: Continue to maximize medical therapy with aspirin, statin, Plavix, beta-deondre. Will increase beta-deondre therapy as tolerated Wean O2 as tolerated. Encourage incentive spirometry use 10 times every hour while awake. Bronchodilators per pulmonology Increase activity, ambulate as tolerated. PT/OT/cardiac rehab consulted Will monitor daily labs and x-rays. Electrolyte replacement per protocol. Will give IV lasix GI/DVT prophylaxis Insulin management per internal medicine Pain control with current medication regimen Continue to record strict accurate intake and output Daily weights Shower today then daily Transfer orders placed yesterday for 3 S. cardiac stepdown unit, may transfer when bed available Discharge planning in progress, anticipate discharge to home with home care in the next 24 to 48 hours More recommendations to follow
--- NOTE | 2023-05-15 08:10 | XR ---
EXAMINATION TYPE: XR chest 2V DATE OF EXAM: 05/15/2023 COMPARISON: 05/14/2023 TECHNIQUE: PA and lateral views submitted. HISTORY: Post cardiac surgery FINDINGS: Bilateral consolidation and small effusion. The heart is enlarged. Median sternotomy changes and pros thetic heart valve. No sizable pneumothorax. No overt failure. Chest is present. IMPRESSION: 1. Bilateral infiltrate and small effusion.
[2023-05-15] MEDS ORDERED: HYDROcodone/APAP 10-325MG 1 EACH TAB PO PRN (08:24)
[2023-05-15] MEDS: ACETAMINOPHEN TAB 325 MG TAB PO PRN (08:43)
[2023-05-15 11:04] LABS: HCT 25.6 % (39.0-53.0); HGB 8.7 gm/dL (13.0-17.5); MCH 31.7 pg (25.0-35.0); MCHC 34.1 g/dL (31.0-37.0); MCV 93.2 fL (80.0-100.0); Mean Platelet Volume 8.2; Platelet Count 230 k/uL (150-450); RBC 2.75 m/uL (4.30-5.90); RDW 12.3 % (11.5-15.5); WBC 8.6 k/uL (3.8-10.6)
[2023-05-15 11:13] LABS: African American GFR (CKD) >90 (>60 ml/min/1.73 sqM); Anion Gap 8 mmol/L; Blood Urea Nitrogen 17 mg/dL (9-20); Calcium 8.6 mg/dL (8.4-10.2); Carbon Dioxide 28 mmol/L (22-30); Chloride 101 mmol/L (98-107); Glucose 155 mg/dL (74-99); Magnesium 2.3 mg/dL (1.6-2.3); Non-African American GFR(CKD) >90 (>60 ml/min/1.73 sqM); Potassium 4.1 mmol/L (3.5-5.1); Sodium 137 mmol/L (137-145)
--- NOTE | 2023-05-15 11:29 | P.PN ---
Subjective Progress Note Date: 05/15/23 This is a 53-year-old male patient with a history of hypertension and hyperlipidemia who had developed an acute episode of shortness of breath while out hunting in the cold. He had been seen and evaluated by cardiology and during his evaluation he was found to have a bicuspid aortic valve stenosis. He was brought in today surgery. He had undergone aortic valve replacement with a Inspiris bovine valve prosthesis and aortic root enlargement along with ligation of the left atrial appendage. He is seen in the postoperative period in the intensive care unit. He is intubated on mechanical ventilator. Current settings are assist-control mode at a rate of 16, tidal volume 500, FiO2 70% and a PEEP of 10. Arterial blood gases revealed a PaO2 of 278, pCO2 41 and a pH of 7.38 on 100% FiO2. He is currently been weaned down to 50% FiO2. He is sedated on propofol at 40 mcg/kg/min. Lactated Ringer's at 50 MLS per hour. Insulin drip at 1 unit/h. Mediastinal and left pleural chest tube remains in place. PA pressure 36/23. Cardiac output 4.3. Cardiac index 2.3. Chest x-ray reveals postsurgical changes with appropriate endotracheal tube, gastric tube, [place]-Puma catheter and chest tubes in good position. No evidence of pneumothorax. White count 14.0. Hemoglobin 11.4. Platelets 149. Sodium 139. Potassium 4.1. Bicarb 22. BUN 6. Creatinine 0.48. Glucose 114. Magnesium 3.2. Calcium 5.1. Albumin 2.9. He is continued on bronchodilators. Heparin for DVT prophylaxis. Patient was reevaluated today on 05/12/2023, he is now postoperative day #1, patient was extubated yesterday shortly after he was admitted to the ICU, he is now on 2 L nasal cannula, doing great with incentive spirometry, chest x-ray showing mostly atelectasis, mediastinal/left pleural chest tubes all remain in place, no evidence of pneumothorax on the chest x-ray. Continues to have right internal jugular [place]-P[place]/Cordis. Today's labs are reassuring hemoglobin is 11.1 WBC count is 15, Renal profile is normal electrolytes are normal Patient was reevaluated today on 05/13/2023, patient continues to do well, remains on 3 L nasal cannula, not in any distress, continues to achieve about 500 cc with his incentive spirometry, patient had no major issues overnight except for some vague chest wall discomfort. Chest x-ray continues to be reassuring, minimal bibasilar atelectasis otherwise unremarkable. WBC count is 14.8 hemoglobin 9.6Basic metabolic profile is normal and renal profile is normal Patient was reevaluated today on 05/14/2023, patient remains in the ICU overflow, he is doing great. He is now postoperative day #3. Patient has mostly some postsurgical pain, no significant shortness of breath, remains on 2 L nasal cannula with O2 sats of 96% chest x-ray showed minimal atelectasis and component of some congestive heart failure with small right-sided pleural effusion. Not large enough to consider thoracentesis based on ultrasound of the chest patient will likely improve with gentle diuresis and this is being addressed by thoracic surgery on the caseWBC count is 13 hemoglobin 8.8 basic metabolic profile is normal renal profile is normal The patient is seen today May 15, 2023 in follow-up in the intensive care unit. Postoperative day #4. He is currently awake and alert in no acute distress. Sitting up in a chair at the bedside. Denies any worsening shortness of breath, cough or congestion. He is working well with the incentive spirometer. Chest x-ray shows bilateral infiltrates and small effusion. Maintaining good O2 saturations in the upper 90s on 2 L/min per nasal cannula. He is afebrile. Hemodynamically stable. White count 8.6. Hemoglobin 8.7. Platelets 230. Sodium 137. Potassium 4.1. Bicarb 28. BUN 17. Creatinine 0.68. Glucose 155. He is continued on bronchodilators. Heparin for DVT prophylaxis. He remains on Levemir and NovoLog sliding scale. Objective - Vital Signs Vital signs: Vital Signs Temp 98.8 F 05/15/23 08:00 Pulse 100 05/15/23 08:23 Resp 16 05/15/23 08:23 BP 116/68 05/15/23 08:00 Pulse Ox 98 05/15/23 08:11 FiO2 2 05/15/23 00:00 Intake & Output 05/14/23 05/15/23 05/15/23 18:59 06:59 18:59 Intake Total 810 Output Total 1375 500 410 Balance -1375 310 -410 Weight 81.3 kg Intake: Oral 810 Output: Urine 1375 500 410 Other: Voiding Method Indwelling Catheter Toilet Toilet Urinal Urinal # Voids 1 # Bowel Movements 1 2 ABP, PAP, CO, CI - Last Documented Arterial Blood Pressure 112/53 Pulmonary Artery Pressure 29/15 Cardiac Output 4 Cardiac Index 2.2 - Exam GENERAL EXAM: Alert, pleasant 53-year-old male, on 2 L nasal cannula, up in a chair, fairly comfortable in no apparent distress. HEAD: Normocephalic. EYES: Normal reaction of pupils, equal size. NOSE: Clear with pink turbinates. THROAT: No erythema or exudates. NECK: No masses, no JVD. CHEST: Sternal dressing dry and intact. Heart hugger in place. LUNGS: Equal air entry with faint crackles in the posterior bases. CVS: S1 and S2 normal with no audible murmur, regular rhythm. ABDOMEN: No hepatosplenomegaly, normal bowel sounds, no guarding or rigidity. SPINE: No scoliosis or deformity SKIN: No rashes CENTRAL NERVOUS SYSTEM: No focal deficits, tone is normal in all 4 extremities. EXTREMITIES: [place] wraps to the lower extremities. There is no peripheral edema. No clubbing, no cyanosis. Peripheral pulses are intact. - Labs CBC & Chem 7: 05/15/23 10:53 05/15/23 10:53 Labs: Abnormal Lab Results - Last 24 Hours (Table) 05/14/23 05/14/23 05/15/23 Range/Units 16:02 20:53 06:32 RBC (4.30-5.90) m/uL Hgb (13.0-17.5) gm/dL Hct (39.0-53.0) % Glucose (74-99) mg/dL POC Glucose (mg/dL) 148 H 135 H 163 H (70-110) mg/dL 05/15/23 05/15/23 Range/Units 10:53 10:53 RBC 2.75 L (4.30-5.90) m/uL Hgb 8.7 L (13.0-17.5) gm/dL Hct 25.6 L (39.0-53.0) % Glucose 155 H (74-99) mg/dL POC Glucose (mg/dL) (70-110) mg/dL Assessment and Plan Assessment: Dyspnea secondary to bicuspid aortic valve with stenosis. Status post aortic valve replacement with an Inspiris bovine valve prosthesis and aortic root enlargement and left atrial appendage ligation. Postoperative day #4 History of hypertension History of hyperlipidemia History of syncope Chronic obstructive pulmonary disease, currently inactive and stable. FEV1 value 64% of predicted History of alcohol use History of marijuana use Plan: The patient was seen and evaluated Chest x-ray, labs and medications reviewed Encouraged the increased use of the incentive spirometer To receive a dose of diuretics Continue bronchodilators Heparin for DVT prophylaxis We will continue to follow I have personally seen and examined the patient, performed the documentation and the assessment and plan as written. Number of minutes spent on the visit: 10.
[2023-05-15 12:02] LABS: Glucose,Whole Blood 136 mg/dL (70-110)
[2023-05-15] MEDS: FUROSEMIDE 10 MG/ML 2 ML VIAL IV ONE (13:25)
[2023-05-15 13:55] LABS: Glucose,Whole Blood 229 mg/dL (70-110)
--- NOTE | 2023-05-15 15:15 | P.PN ---
Subjective Progress Note Date: 05/15/23 53 year old M with PMH of HTN, HLD, bicuspid AV stenosis, history of smoking, daily drinker presents to [facility] for elective surgery. He underwent AV replacement with Dr. Quevedo on 05/11. [facility] has been consulted for medical management of this patient. Extubated successfully on 05/11. 05/12 Patient was seen and examined. He reports well controlled chest pain at the site of incision. Able to achieve 500 cc on IS. Currently on 2L NC. NS at 20 cc/hr. Insulin drip at 3.5 units/hr. Amezcua catheter in placed. Right IJ, mediastinal and left chest tube in place. CBC WBC 15, Hg 11.1, Hct 31.8. CMP BUN 8 Cr 0.54, glu 110, ALT 55, total protein 5.4. CXR done today shows swan demetrius, mediastinal and left chest tube in place with no acute process. 05/13 Patient was seen and examined. Tired. A little SOB with exertion. Passing gas no bowel movement. Currently on 3L NC. Insulin drip at 6 units/hr. CBC WBC 14.8, Hg 9.6, Hct 27.4, Plt 143. CMP Na 136, glu 108, T. Bili 1.9, alb 3.3. POC glucose 100-211 over the past 24H. CXR done today shows increased pulmonary vascular congestion. Plans for Lasix 20 mg IV today. Plans to discontinue cordic, arterial line, mediastinal chest tube today per CT surgery. 05/14 Patient was seen and examined. Able to have a bowel movement. Currently on 3L NC. Insulin drip transitioned to SQ insulin yesterday (Levemir 21 units QHS and Novolog 7 units TID). POC glucose 122-236 over the past 24H needing 12 units on the ISS. CBC WBC 13, Hg 8.8, Hct 26.4. CMP Na 133, glu 149, T. Bili 1.4, alb 3.2. CXR done today shows continued pulmonary vascular congestion. Lasix 20 mg IV x [address] surgery. Plans to discontinue left chest tube and amezcua c atheter today. 05/15 Patient was seen and examined. Feeling well. No complaints. Currently on 2L NC. POC glucose 106-172 over the past 24H. CBC shows Hg 8.7 Hct 25.6. BMP glu 155. CXR done today shows improved pulmonary vascular congestion. Chest US done yesterday shows trace bilateral pleural effusions. Lasix 20 mg IV x [address] surgery today. General: non toxic, no distress, appears at stated age Derm: warm, dry Head: atraumatic, normocephalic, symmetric Eyes: EOMI, no lid lag, anicteric sclera Mouth: no lip lesion, mucus membranes moist Cardiovascular: S1S2 reg, no murmur, heart hugger in place Lungs: CTA bilateral, no rhonchi, no rales , no accessory muscle use Abdominal: soft, nontender to palpation, no guarding, no appreciable organomegaly, + BS Ext: no gross muscle atrophy, no edema, no contractures Neuro: no focal neuro deficits Psych: Alert, oriented, appropriate affect Based on my assessment of this patient, this patient meets a high complexity level of care. Patient has a history of bicuspid AV stenosis status post AV replacement POD 3 with severe exacerbation or progression of disease which poses a threat to life or bodily function. Acute blood loss anemia: Expected result of surgery. Daily CBC. Transfuse if Hg < 7. Pulmonary vascular congestion: Lasix 20 mg IV x 1 05/13 and 05/14 and 05/15. Repeat CXR tomorrow. Diabetes mellitus with hyperglycemia: A1c 6.8. Increase Levemir 27 units QHS and Novolog 9 units TID along with low dose ISS. Accuchecks ACHS. Hypoglycemic precautions. Leukocytosis: Likely reactive. Monitor fever profile. No signs of active in fection. Transaminitis: Possibly related to EtOH abuse. Monitor. Hypertension: Metoprolol 25 mg PO BID. Dyslipidemia: Lipitor 40 mg PO QHS. h/o EtOH abuse: Monitor for withdrawal symptoms. CODE STATUS: FULL CODE. DVT Prophylaxis: Heparin SQ GI Prophylaxis: Protonix Designated medical POA if patient is not able to make medical decisions for themselves: I have reviewed the following education consultant notes: Pulmonary, Cardiology, CT surgery note. I have reviewed the results of the following tests: CBC, BMP, Mag. I have ordered the following tests: CBC, BMP and CXR ordered for tomorrow morning. I have discussed the care of this patient with the following independent historian: I have independently interpreted the following test below: CXR. I have discussed the management of this patient with the following physician: This patient has a high risk of morbidity due to the following reasons: Patient required IV Lasix which requires daily monitoring of renal function. Objective - Vital Signs Vital signs: Vital Signs Temp 98.7 F 05/15/23 04:00 Pulse 98 05/15/23 04:00 Resp 20 05/15/23 04:00 BP 101/69 05/15/23 04:00 Pulse Ox 95 05/15/23 04:00 FiO2 2 05/15/23 00:00 Intake & Output 05/14/23 05/15/23 05/15/23 18:59 06:59 18:59 Intake Total 810 Output Total 1375 500 Balance -1375 310 Weight 81.3 kg Intake: Oral 810 Output: Urine 1375 500 Other: Voiding Method Indwelling Catheter Toilet Urinal # Voids 1 # Bowel Movements 1 ABP, PAP, CO, CI - Last Documented Arterial Blood Pressure 112/53 Pulmonary Artery Pressure 29/15 Cardiac Output 4 Cardiac Index 2.2 - Labs CBC & Chem 7: 05/15/23 10:53 05/15/23 10:53 Labs: Abnormal Lab Results - Last 24 Hours (Table) 05/14/23 05/14/23 05/14/23 Range/Units 11:03 16:02 20:53 POC Glucose (mg/dL) 172 H 148 H 135 H (70-110) mg/dL 05/15/23 Range/Units 06:32 POC Glucose (mg/dL) 163 H (70-110) mg/dL
[2023-05-15 16:25] LABS: Glucose,Whole Blood 127 mg/dL (70-110)
[2023-05-15 17:37] LABS: Glucose,Whole Blood 226 mg/dL (70-110)
--- NOTE | 2023-05-15 18:29 | P.PN ---
Subjective Patient is resting comfortably in a chair He has a cough with expectoration Incisional chest discomfort Breath sounds are reduced bilaterally Heart sounds are regular Impression Aortic valve replacement with aortic root surgery doing well postop day 4 Underlying pathology was a bicuspid aortic valve Normal heart rates sinus mechanism Intraoperative anemia Intermittent sinus tachycardia Plan Continue current medications continue beta-blockers Objective - Vital Signs Vital signs: Vital Signs Temp 98.5 F 05/15/23 16:00 Pulse 106 H 05/15/23 16:00 Resp 20 05/15/23 16:00 BP 96/67 05/15/23 16:00 Pulse Ox 94 L 05/15/23 16:00 FiO2 2 05/15/23 00:00 Intake & Output 05/14/23 05/15/23 05/15/23 18:59 06:59 18:59 Intake Total 810 Output Total 1375 500 685 Balance -1375 310 -685 Weight 81.3 kg Intake: Oral 810 Output: Urine 1375 500 685 Other: Voiding Method Indwelling Catheter Toilet Toilet Urinal Urinal # Voids 1 1 # Bowel Movements 1 2 ABP, PAP, CO, CI - Last Documented Arterial Blood Pressure 112/53 Pulmonary Artery Pressure 29/15 Cardiac Output 4 Cardiac Index 2.2 - Labs CBC & Chem 7: 05/15/23 10:53 05/15/23 10:53 Labs: Abnormal Lab Results - Last 24 Hours (Table) 05/14/23 05/15/23 05/15/23 Range/Units 20:53 06:32 10:53 RBC 2.75 L (4.30-5.90) m/uL Hgb 8.7 L (13.0-17.5) gm/dL Hct 25.6 L (39.0-53.0) % Glucose (74-99) mg/dL POC Glucose (mg/dL) 135 H 163 H (70-110) mg/dL 05/15/23 05/15/23 05/15/23 Range/Units 10:53 12:00 13:53 RBC (4.30-5.90) m/uL Hgb (13.0-17.5) gm/dL Hct (39.0-53.0) % Glucose 155 H (74-99) mg/dL POC Glucose (mg/dL) 136 H 229 H (70-110) mg/dL 05/15/23 05/15/23 Range/Units 16:24 17:36 RBC (4.30-5.90) m/uL Hgb (13.0-17.5) gm/dL Hct (39.0-53.0) % Glucose (74-99) mg/dL POC Glucose (mg/dL) 127 H 226 H (70-110) mg/dL
[2023-05-15 20:51] LABS: Glucose,Whole Blood 155 mg/dL (70-110)
[2023-05-15] MEDS: METOPROLOL TARTRATE 50 MG TAB PO SCH (21:06)
[2023-05-16 06:18] LABS: Glucose,Whole Blood 109 mg/dL (70-110)
[2023-05-16 06:42] LABS: HCT 27.8 % (39.0-53.0); HGB 9.4 gm/dL (13.0-17.5); MCH 31.5 pg (25.0-35.0); MCHC 33.8 g/dL (31.0-37.0); MCV 93.2 fL (80.0-100.0); Mean Platelet Volume 7.9; Platelet Count 272 k/uL (150-450); RBC 2.98 m/uL (4.30-5.90); RDW 12.5 % (11.5-15.5); WBC 7.9 k/uL (3.8-10.6)
[2023-05-16 06:56] LABS: African American GFR (CKD) >90 (>60 ml/min/1.73 sqM); Anion Gap 4 mmol/L; Blood Urea Nitrogen 16 mg/dL (9-20); Calcium 8.7 mg/dL (8.4-10.2); Carbon Dioxide 30 mmol/L (22-30); Chloride 104 mmol/L (98-107); Glucose 96 mg/dL (74-99); Magnesium 2.2 mg/dL (1.6-2.3); Non-African American GFR(CKD) >90 (>60 ml/min/1.73 sqM); Potassium 4.1 mmol/L (3.5-5.1); Sodium 138 mmol/L (137-145)
[2023-05-16] MEDS ORDERED: HYDROcodone/APAP 5-325MG 1 EACH TAB PO PRN (07:29)
--- NOTE | 2023-05-16 07:33 | P.PN ---
Subjective Progress Note Date: 05/16/23 Principal diagnosis: Calcific bicuspid aortic valve stenosis. Previous medical history of hypertension, hyperlipidemia, syncope, previous tobacco dependence, mild COPD, ETOH use with greater than 8 drinks per week, occasional marijuana use, and family history of premature coronary artery disease POD #5 aortic valve replacement with 27 mm [place] Inspiris bovine valve prosthesis with aortic root enlargement with woven dacron patch (Bill Dacosta technique) and ligation of the left atrial appendage with 35mm AtriCure clamp. SUKHJINDER by anesthesia. Epiaortic ultrasonography Postoperative acute blood loss anemia, expected given hemodilution Leukocytosis, likely reactive The patient was seen and examined this morning sitting up in recliner in the intensive care unit in no acute distress. Does complain of postsurgical pain with coughing and deep breathing, does complain of mild shortness of breath. Reports difficulty sleeping in the bed as it is uncomfortable. Remains in sinus rhythm, hemodynamically stable. Currently on room air with oxygen saturation in the low 90s, still only able to achieve 500-750 mL on his incentive spirometry. Chest x-ray, labs reviewed. Patient did ambulate in the hallway yesterday without difficulty, had first postoperative shower yesterday. Transfer orders were placed for 3 S. cardiac stepdown unit, however there is no bed availability at this time. States he feels he could go home today and may be able to sleep better in his own bed. No other new concerns. Objective - Vital Signs Vital signs: Vital Signs Temp 99.3 F 05/16/23 04:00 Pulse 99 05/16/23 04:00 Resp 24 05/16/23 04:00 BP 117/78 05/16/23 04:00 Pulse Ox 92 L 05/16/23 04:00 FiO2 2 05/15/23 00:00 Intake & Output 05/15/23 05/16/23 05/16/23 18:59 06:59 18:59 Intake Total 700 Output Total 985 650 Balance -285 -650 Weight 80.9 kg Intake: Tube Feeding 700 Output: Urine 985 650 Other: Voiding Method Toilet Toilet Urinal Urinal # Voids 1 # Bowel Movements 2 1 ABP, PAP, CO, CI - Last Documented Arterial Blood Pressure 112/53 Pulmonary Artery Pressure 29/15 Cardiac Output 4 Cardiac Index 2.2 - Exam CONSTITUTIONAL: Appears more comfortable, cooperative, no acute distress RESPIRATORY: Lungs sounds diminished bilaterally. Respirations even, nonla bored. Currently on room air with oxygen saturation 92%. Able to achieve 500- 750 mL on incentive spirometry. Strong productive cough. CARDIOVASCULAR: S1, S2 present. Regular rate and rhythm, sinus rhythm on telemetry. Sternum stable. Palpable peripheral pulses bilaterally. No edema present. No calf pain or tenderness noted. Heart hugger in place with patient demonstrating appropriate use. Antiembolism stockings, SCDs present. GASTROINTESTINAL: Abdomen soft, nontender, nondistended. Active bowel sounds present 4 quadrants. Tolerating diet. Positive bowel movement 05/16 GENITOURINARY: Continues to void clear, yellow urine. Output 1635 mL in the last 24 hours INTEGUMENTARY: Skin is warm and dry with evidence of good perfusion. Anterior chest incision well approximated NEUROLOGIC: Cranial nerves II through XII intact MUSKULOSKELETAL: Able to move all extremities, strength equal bilaterally, steady gait PSYCHIATRIC: Alert and oriented to person place and time, appropriate affect, intact judgment and insight - Allied health notes Allied health notes reviewed: nursing - Labs CBC & Chem 7: 05/16/23 06:21 05/16/23 06:21 Labs: Abnormal Lab Results - Last 24 Hours (Table) 05/15/23 05/15/23 05/15/23 Range/Units 10:53 10:53 12:00 RBC 2.75 L (4.30-5.90) m/uL Hgb 8.7 L (13.0-17.5) gm/dL Hct 25.6 L (39.0-53.0) % Glucose 155 H (74-99) mg/dL POC Glucose (mg/dL) 136 H (70-110) mg/dL 05/15/23 05/15/23 05/15/23 Range/Units 13:53 16:24 17:36 RBC (4.30-5.90) m/uL Hgb (13.0-17.5) gm/dL Hct (39.0-53.0) % Glucose (74-99) mg/dL POC Glucose (mg/dL) 229 H 127 H 226 H (70-110) mg/dL 05/15/23 05/16/23 Range/Units 20:50 06:21 RBC 2.98 L (4.30-5.90) m/uL Hgb 9.4 L (13.0-17.5) gm/dL Hct 27.8 L (39.0-53.0) % Glucose (74-99) mg/dL POC Glucose (mg/dL) 155 H (70-110) mg/dL - Imaging and Cardiology Chest x-ray: image reviewed Assessment and Plan Assessment: Calcific bicuspid aortic valve stenosis, status post bioprosthetic aortic valve replacement with root enlargement History of hypertension Hyperlipidemia, treated, cholesterol 103, LDL 42 Recent syncope Previously undiagnosed diabetes, preoperative hemoglobin A1c 6.8% Previous tobacco dependence Mild COPD, preoperative FEV1 64% of predicted ETOH use with greater than 8 drinks per week Occasional marijuana use Family history of premature coronary artery disease Postoperative acute blood loss anemia, expected given hemodilution Leukocytosis, likely reactive, resolved Plan: Continue to maximize medical therapy with aspirin, statin, Plavix, beta-deondre Encourage incentive spirometry use 10 times every hour while awake. Bronchodilators per pulmonology Increase activity, ambulate as tolerated. PT/OT/cardiac rehab consulted Will monitor daily labs and x-rays. Electrolyte replacement per protocol. Will give IV lasix GI/DVT prophylaxis Insulin management per internal medicine Pain control with current medication regimen Continue to record strict accurate intake and output Daily weights Shower daily Will obtain CT of chest to evaluate right lung base for early pneumonia Discharge planning in progress, anticipate discharge to home with home care this afternoon versus tomorrow morning More recommendations to follow
--- NOTE | 2023-05-16 08:18 | XR ---
EXAMINATION TYPE: XR chest 2V DATE OF EXAM: 05/16/2023 COMPARISON: 05/15/2023 TECHNIQUE: PA and lateral views submitted. HISTORY: Post cardiac surgery FINDINGS: Bilateral consolidation and small effusion. The heart is enlarged. Median sternotomy changes and pros thetic heart valve. Interval development of approximately 5% left apical pneumothorax. No overt failu re. Chest is present. IMPRESSION: 1. There is interval development of approximately 5% left apical pneumothorax. 2. Mild bilateral infiltrate and pleural effusion stable..
[2023-05-16] MEDS: FUROSEMIDE 10 MG/ML 2 ML VIAL IV ONE (08:50)
--- NOTE | 2023-05-16 09:14 | CT ---
EXAMINATION TYPE: CT chest wo con CT DLP: 665.2 mGycm, Automated exposure control for dose reduction was used. DATE OF EXAM: 05/16/2023 8:46 AM COMPARISON: 05/16/2023 CLINICAL INDICATION:Male, 53 years old with history of eval right lung base, eval right lung base TECHNIQUE: Multiple axial images were obtained through the chest. Sagittal and coronal reformats were created for review. Contrast used:(None if empty) Oral contrast used: (None if empty) FINDINGS: LUNGS/ PLEURA: Small right pleural effusion with associated atelectasis. AIRWAY: Patent and unremarkable. HEART: Size within normal limits. Aortic valvular repair changes. Sternotomy wires present. MEDIASTIN UM: No gross evidence of adenopathy. VASCULATURE: No aortic aneurysm. MUSCULOSKELETAL: No acute osseous abnormalities SOFT TISSUES/LYMPH NODES: Unremarkable. LOWER NECK: No significant findings. UPPER ABDOMEN: No significant findings. IMPRESSION: Small bilateral pleural effusions with associated atelectasis.
--- NOTE | 2023-05-16 10:35 | P.PN ---
Subjective Progress Note Date: 05/16/23 This is a 53-year-old male patient with a history of hypertension and hyperlipidemia who had developed an acute episode of shortness of breath while out hunting in the cold. He had been seen and evaluated by cardiology and during his evaluation he was found to have a bicuspid aortic valve stenosis. He was brought in today surgery. He had undergone aortic valve replacement with a Inspiris bovine valve prosthesis and aortic root enlargement along with ligation of the left atrial appendage. He is seen in the postoperative period in the intensive care unit. He is intubated on mechanical ventilator. Current settings are assist-control mode at a rate of 16, tidal volume 500, FiO2 70% and a PEEP of 10. Arterial blood gases revealed a PaO2 of 278, pCO2 41 and a pH of 7.38 on 100% FiO2. He is currently been weaned down to 50% FiO2. He is sedated on propofol at 40 mcg/kg/min. Lactated Ringer's at 50 MLS per hour. Insulin drip at 1 unit/h. Mediastinal and left pleural chest tube remains in place. PA pressure 36/23. Cardiac output 4.3. Cardiac index 2.3. Chest x-ray reveals postsurgical changes with appropriate endotracheal tube, gastric tube, [place] catheter and chest tubes in good position. No evidence of pneumothorax. White count 14.0. Hemoglobin 11.4. Platelets 149. Sodium 139. Potassium 4.1. Bicarb 22. BUN 6. Creatinine 0.48. Glucose 114. Magnesium 3.2. Calcium 5.1. Albumin 2.9. He is continued on bronchodilators. Heparin for DVT prophylaxis. Patient was reevaluated today on 05/12/2023, he is now postoperative day #1, patient was extubated yesterday shortly after he was admitted to the ICU, he is now on 2 L nasal cannula, doing great with incentive spirometry, chest x-ray showing mostly atelectasis, mediastinal/left pleural chest tubes all remain in place, no evidence of pneumothorax on the chest x-ray. Continues to have right internal jugular [place]/Cordis. Today's labs are reassuring hemoglobin is 11.1 WBC count is 15, Renal profile is normal electrolytes are normal Patient was reevaluated today on 05/13/2023, patient continues to do well, remains on 3 L nasal cannula, not in any distress, continues to achieve about 500 cc with his incentive spirometry, patient had no major issues overnight except for some vague chest wall discomfort. Chest x-ray continues to be reassuring, minimal bibasilar atelectasis otherwise unremarkable. WBC count is 14.8 hemoglobin 9.6Basic metabolic profile is normal and renal profile is normal Patient was reevaluated today on 05/14/2023, patient remains in the ICU overflow, he is doing great. He is now postoperative day #3. Patient has mostly some postsurgical pain, no significant shortness of breath, remains on 2 L nasal cannula with O2 sats of 96% chest x-ray showed minimal atelectasis and component of some congestive heart failure with small right-sided pleural effusion. Not large enough to consider thoracentesis based on ultrasound of the chest patient will likely improve with gentle diuresis and this is being addressed by thoracic surgery on the caseWBC count is 13 hemoglobin 8.8 basic metabolic profile is normal renal profile is normal The patient is seen today May 15, 2023 in follow-up in the intensive care unit. Postoperative day #4. He is currently awake and alert in no acute distress. Sitting up in a chair at the bedside. Denies any worsening shortness of breath, cough or congestion. He is working well with the incentive spirometer. Chest x-ray shows bilateral infiltrates and small effusion. Maintaining good O2 saturations in the upper 90s on 2 L/min per nasal cannula. He is afebrile. Hemodynamically stable. White count 8.6. Hemoglobin 8.7. Platelets 230. Sodium 137. Potassium 4.1. Bicarb 28. BUN 17. Creatinine 0.68. Glucose 155. He is continued on bronchodilators. Heparin for DVT prophylaxis. He remains on Levemir and NovoLog sliding scale. The patient is seen today May 16, 2023 in follow-up in the intensive care unit. Postoperative day #5. He is sitting up in a chair. Awake and alert in no acute distress. Maintaining good O2 saturations in the 90s on room air. No IV fluids. His chest x-ray revealed a right lower lobe infiltrate versus atelectasis. CT scan of the chest reveals small right pleural effusion with as sociated atelectasis. Procalcitonin pending. White count 7.9. Hemoglobin 9.4. Platelets 272. Sodium 138. Potassium 4.1. Bicarb 30. BUN 16. Creatinine 0.66. Glucose 109.. Heparin for DVT prophylaxis. Objective - Vital Signs Vital signs: Vital Signs Temp 98.9 F 05/16/23 08:00 Pulse 102 H 05/16/23 08:00 Resp 18 05/16/23 08:00 BP 114/70 05/16/23 08:00 Pulse Ox 92 L 05/16/23 08:00 FiO2 2 05/15/23 00:00 Intake & Output 05/15/23 05/16/23 05/16/23 18:59 06:59 18:59 Intake Total 700 300 Output Total 985 650 300 Balance -285 -650 0 Weight 80.9 kg Intake: Tube Feeding 700 300 Output: Urine 985 650 300 Other: Voiding Method Toilet Toilet Toilet Urinal Urinal Urinal # Voids 1 # Bowel Movements 2 1 ABP, PAP, CO, CI - Last Documented Arterial Blood Pressure 112/53 Pulmonary Artery Pressure 29/15 Cardiac Output 4 Cardiac Index 2.2 - Exam GENERAL EXAM: Alert, pleasant 53-year-old male, on room air, up in a chair, comfortable in no apparent distress. HEAD: Normocephalic. EYES: Normal reaction of pupils, equal size. NOSE: Clear with pink turbinates. THROAT: No erythema or exudates. NECK: No masses, no JVD. CHEST: Sternal dressing dry and intact. Heart hugger in place. LUNGS: Equal air entry with faint crackles in the right posterior base. CVS: S1 and S2 normal with no audible murmur, regular rhythm. ABDOMEN: No hepatosplenomegaly, normal bowel sounds, no guarding or rigidity. SPINE: No scoliosis or deformity SKIN: No rashes CENTRAL NERVOUS SYSTEM: No focal deficits, tone is normal in all 4 extremities. EXTREMITIES: There is no peripheral edema. No clubbing, no cyanosis. Peripheral pulses are intact. - Labs CBC & Chem 7: 05/16/23 06:21 05/16/23 06:21 Labs: Abnormal Lab Results - Last 24 Hours (Table) 05/15/23 05/15/23 05/15/23 Range/Units 10:53 10:53 12:00 RBC 2.75 L (4.30-5.90) m/uL Hgb 8.7 L (13.0-17.5) gm/dL Hct 25.6 L (39.0-53.0) % Glucose 155 H (74-99) mg/dL POC Glucose (mg/dL) 136 H (70-110) mg/dL 05/15/23 05/15/23 05/15/23 Range/Units 13:53 16:24 17:36 RBC (4.30-5.90) m/uL Hgb (13.0-17.5) gm/dL Hct (39.0-53.0) % Glucose (74-99) mg/dL POC Glucose (mg/dL) 229 H 127 H 226 H (70-110) mg/dL 05/15/23 05/16/23 Range/Units 20:50 06:21 RBC 2.98 L (4.30-5.90) m/uL Hgb 9.4 L (13.0-17.5) gm/dL Hct 27.8 L (39.0-53.0) % Glucose (74-99) mg/dL POC Glucose (mg/dL) 155 H (70-110) mg/dL Assessment and Plan Assessment: Dyspnea secondary to bicuspid aortic valve with stenosis. Status post aortic valve replacement with an Inspiris bovine valve prosthesis and aortic root enlargement and left atrial appendage ligation. Postoperative day #5 History of hypertension History of hyperlipidemia History of syncope Chronic obstructive pulmonary disease, currently inactive and stable. FEV1 value 64% of predicted History of alcohol use History of marijuana use Plan: The patient was seen and evaluated Chest x-ray, CT scan of the chest, labs and medications reviewed Encouraged the increased use of the incentive spirometer Check a procalcitonin Received Lasix 20 mg IVP x 1 Continue bronchodilators Heparin for DVT prophylaxis Increase his activity as tolerated We will continue to follow I have personally seen and examined the patient, performed the documentation and the assessment and plan as written. Number of minutes spent on the visit: 10.
--- NOTE | 2023-05-16 11:30 | P.PN ---
Subjective Patient is doing well Sitting up comfortably in a chair Heart sounds S1-S2 normal Breath sounds are reduced There are no rhonchi no crackles Blood pressure 114/70 mmHg pulse rate in the 80s and 90s Impression aortic valve replacement with aortic root enlargement Ligation of the left atrial appendage Hypertension Dyslipidemia History of tobacco use Regular alcohol use Suggest Continue current medications Dual antiplatelet therapy Reduce aspirin to 81 mg p.o. daily at discharge Continue beta-blockers Objective - Vital Signs Vital signs: Vital Signs Temp 98.9 F 05/16/23 08:00 Pulse 102 H 05/16/23 08:00 Resp 18 05/16/23 08:00 BP 114/70 05/16/23 08:00 Pulse Ox 92 L 05/16/23 08:00 FiO2 2 05/15/23 00:00 Intake & Output 05/15/23 05/16/23 05/16/23 18:59 06:59 18:59 Intake Total 700 300 Output Total 985 650 300 Balance -285 -650 0 Weight 80.9 kg Intake: Tube Feeding 700 300 Output: Urine 985 650 300 Other: Voiding Method Toilet Toilet Toilet Urinal Urinal Urinal # Voids 1 # Bowel Movements 2 1 ABP, PAP, CO, CI - Last Documented Arterial Blood Pressure 112/53 Pulmonary Artery Pressure 29/15 Cardiac Output 4 Cardiac Index 2.2 - Labs CBC & Chem 7: 05/16/23 06:21 05/16/23 06:21 Labs: Abnormal Lab Results - Last 24 Hours (Table) 05/15/23 05/15/23 05/15/23 Range/Units 12:00 13:53 16:24 RBC (4.30-5.90) m/uL Hgb (13.0-17.5) gm/dL Hct (39.0-53.0) % POC Glucose (mg/dL) 136 H 229 H 127 H (70-110) mg/dL 05/15/23 05/15/23 05/16/23 Range/Units 17:36 20:50 06:21 RBC 2.98 L (4.30-5.90) m/uL Hgb 9.4 L (13.0-17.5) gm/dL Hct 27.8 L (39.0-53.0) % POC Glucose (mg/dL) 226 H 155 H (70-110) mg/dL
[2023-05-16 11:43] LABS: Glucose,Whole Blood 121 mg/dL (70-110)
--- NOTE | 2023-05-16 13:26 | P.DS ---
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 Consult: post cardiac surgery Do you want consulting provider notified?: Yes Primary care physician: Joe [facility] Course: FINAL DIAGNOSIS: Calcific bicuspid aortic valve stenosis History of hypertension Hyperlipidemia, treated, cholesterol 103, LDL 42 Recent syncope Previously undiagnosed diabetes, preoperative hemoglobin A1c 6.8% Previous tobacco dependence Mild COPD, preoperative FEV1 64% of predicted ETOH use with greater than 8 drinks per week Occasional marijuana use Family history of premature coronary artery disease Postoperative acute blood loss anemia, expected given hemodilution Leukocytosis, likely reactive, resolved Newly diagnosed diabetes mellitus, HgbA1c 6.8% PRINCIPAL PROCEDURE: Aortic valve replacement with 27 mm Dunne Inspiris bovine valve prosthesis with aortic root enlargement with woven dacron patch (Bill Dacosta technique) Ligation of the left atrial appendage with 35mm AtriCure clamp SUKHJINDER by anesthesia Epiaortic ultrasonography HISTORY OF PRESENT ILLNESS: This is a 53-year-old gentleman who follows outpatient with Dr. Moreland for primary care and Dr. Galvin for cardiology. He had presented to [facility] after an acute episode of shortness of breath while hunting associated with chest discomfort and collapse to the ground. During that hospitalization he was found to have severe aortic valve stenosis with bicuspid aortic valve on transthoracic echocardiogram with normal left ventricular systolic function, peak velocity greater than 4 m/s, and mean gradient greater than 40 mmHg. Transesophageal echocardiogram confirmed this finding. Cardiac catheterization completed at that time demonstrated no evidence of coronary artery disease. The patient was referred to Dr. Quevedo from cardiothoracic surgery. He was recommended to undergo aortic valve replacement. Discussion took place between Dr. Quevedo and the patient and his regarding mechanical versus bioprosthetic valve. Due to his young age recommendation was made for mechanical valve, however patient did not want to be on lifelong Coumadin and preferred bioprosthetic valve, hence aortic root enlargement was recommended as well. The usual perioperative course was discussed in detail with the patient and his , all risks and benefits were explained, all questions were answered, and consent was obtained to proceed with surgery. The patient scheduled for surgery at the earliest possible date after obtaining dental clearance. HOSPITAL COURSE: The patient was brought to the hospital on 05/11/23, taken to the preoperative area, prepared in the usual fashion, and subsequently taken to the operating room where Dr. Quevedo performed bioprosthetic aortic valve replacement along with aortic root enlargement. Upon completion of surgery the patient was transferred to the cardiovascular intensive care unit where he was recovered and monitored hemodynamically. He was extubated, all lines, tubes, and drips were discontinued when appropriate, and transfer orders were placed for 3 S. cardiac stepdown unit, however there was no bed availability and the patient remained on ICU as a stepdown patient until discharge. His oxygen was titrated down, he continued to work with physical and occupational therapy, he was tolerating oral diet, his pain was controlled, and he was ready to be discharged to home with [facility] care on postoperative day #5. He received written and verbal instruction regarding his medications, activity restrictions, signs and symptoms requiring physician notification, and follow-up appointments. Patient Condition at Discharge: Stable Plan - Discharge Summary Discharge Rx Participant: Yes New Discharge Prescriptions: New Aspirin 325 mg PO DAILY #30 tab Metoprolol Tartrate [Lopressor] 50 mg PO BID #60 tab Melatonin 6 mg PO HS PRN tab PRN Reason: Insomnia Clopidogrel [Plavix] 75 mg PO DAILY #30 tab Sennosides-Docusate Sodium [Senokot-S] 2 each PO HS PRN tab PRN Reason: Constipation Acetaminophen Tab [Tylenol] 650 mg PO Q4HR PRN tab PRN Reason: Fever And/ Or Pain Insulin Glargine,Hum.rec.anlog [Lantus Solostar Pen] 10 units SQ DAILY 30 Days #1 each Furosemide [Lasix] 20 mg PO DAILY #5 tab HYDROcodone/APAP 5-325MG [[place] 5-325] 1 each PO Q6HR PRN #12 tab PRN Reason: Pain Pantoprazole [Protonix] 40 mg PO AC-BRKFST #30 tab Continue Atorvastatin [Lipitor] 40 mg PO HS 90 Days #90 tab Discharge Medication List Atorvastatin [Lipitor] 40 mg PO HS 90 Days #90 tab 04/12/23 [Rx] Acetaminophen Tab [Tylenol] 650 mg PO Q4HR PRN tab 05/16/23 [Rx] Aspirin 325 mg PO DAILY #30 tab 05/16/23 [Rx] Clopidogrel [Plavix] 75 mg PO DAILY #30 tab 05/16/23 [Rx] Furosemide [Lasix] 20 mg PO DAILY #5 tab 05/16/23 [Rx] HYDROcodone/APAP 5-325MG [[place] 5-325] 1 each PO Q6HR PRN #12 tab 05/16/23 [Rx] Insulin Glargine,Hum.rec.anlog [Lantus Solostar Pen] 10 units SQ DAILY 30 Days #1 each 05/16/23 [Rx] Melatonin 6 mg PO HS PRN tab 05/16/23 [Rx] Metoprolol Tartrate [Lopressor] 50 mg PO BID #60 tab 05/16/23 [Rx] Pantoprazole [Protonix] 40 mg PO AC-BRKFST #30 tab 05/16/23 [Rx] Sennosides-Docusate Sodium [Senokot-S] 2 each PO HS PRN tab 05/16/23 [Rx] Follow up Appointment(s)/Referral(s): Eduardo Weeks MD [STAFF PHYSICIAN] - 06/05/23 1:45 pm [facility] [NON-STAFF] - 4 Weeks (You will receive a phone call in approximately 4-6 weeks for evaluation for cardiac rehab) Ming Galvin MD [STAFF PHYSICIAN] - 05/25/23 4:15 pm Yevegniy Quevedo MD [STAFF PHYSICIAN] - 06/15/23 2:00 pm Joe Moreland DO [Primary Care Provider] - 05/26/23 11:40 am Alexys Silva NPC [Nurse Practitioner] - 05/25/23 3:30 pm (You will be seen in the surgeon's office behind the hospital in [facility], [address]. Office phone number is ) [facility], [NON-STAFF] - 1-2 Days (To be seen the day after discharge, then 2-3 times per week until you start cardiac rehab) Ambulatory/Diagnostic Orders: Complete Blood Count w/diff [LAB.AMB] Time Frame: 3 Days, Location: None Selected Comprehensive Metabolic Panel [LAB.AMB] Time Frame: 3 Days, Location: None Selected Activity/Diet/Wound Care/Special Instructions: DISCHARGE INSTRUCTIONS: 1. No driving for 4 weeks after surgery, or until physician gives their ok. 2. The patient should sleep in their own bed, no medical bed needed. 3. Stairs are not an issue. If the bedroom is upstairs, it is advised that the patient go up at night and down in the morning for the first week. Go slowly, using handrail and take 1 step at a time. 4. ROBERTO hose are to be worn for 30 days post surgery or until physician discontinues. 5. Heart hugger is to be worn 100% of the time until physician discontinues.(except when showering) 6. No lifting, pushing, or pulling more than 10 pounds for 12 weeks from surgery. The physician will advise of any restriction changes. 7. The patient is expected to continue the prescribed walking program. 8. Continue pain control per as needed orders. 9. Continue with incentive spirometry and splinting/heart hugger until otherwise directed by the physician. 10. Must shower daily using liquid antibacterial soap 11. Routine sternal incision care. No powders, lotions, ointments on incisions. No dressings are necessary on incisions unless they are draining. Dermabond tape is to remain on sternal incision until surgeon follow-up. 12. Please call surgeon/SERVICE UNIT OPERATOR for temp greater than 101 F or purulent drainage from incisions. 13. You should weigh yourself daily, record and bring log with you to follow up appointments. 14. All prescriptions given by surgeon for 30 days. Refills need to be filled through data warehousing specialist/primary care physician. 15. A Red armband has been placed on the patient. It should be worn for 30 days post discharge from surgery and will be removed by the cardiac surgeons. If an ER visit is necessary, please make sure the number on the Red armband is called before going to ER. 16. You have been referred to and are expected to begin Cardiac Rehab in approximately 4-6 weeks. 17. Quitting smoking is the most important step you can take to improve your health. For additional information and assistance to quit smoking, please call the [place] tobacco quit line (0-907-CXCY-NOW/ ) or online: [email or web address] HOME HEALTH SERVICES TO PROVIDE: RN SKILLED HOME CARE SERVICES FOR POST-OP SURGICAL PATIENTS WITH THE FOLLOWING: Coronary Artery Bypass Surgery (CABG), Mitral Valve Replacement/Repair ( MVR), Aortic Valve Replacement/Repair (AVR) RN TO CONTINUE EDUCATION FROM ``ROAD TO A HEALTH HEART PATIENT EDUCATION MANUAL (GIVEN TO PATIENT IN THE HOSPITAL) MEDICATION RECONCILIATION WITH EDUCATION NEEDED ON FIRST HOME VISIT EMPHASIZE IMPORTANCE OF WEARING BREAST SUPPORT/HEART HUGGER ENCOURAGE USE OF INCENTIVE SPIROMETER 10 X EVERY HOUR WHILE AWAKE ENCOURAGE UTILIZATION OF LOWER EXTREMITY COMPRESSION STOCKINGS/ROBERTO HOSE and ELEVATE LEGS ABOVE LEVEL OF HEART WHILE AT REST. ENCOURAGE AMBULATION 3-5x/day INCREASING TOLERATES, WHILE AVOIDING EXTREMES IN TEMPERATURE FREQUENCY: RN TO OPEN THE PATIENT WITHIN 24 HOURS OF DISCHARGE FROM THE HOSPITAL WITH TELEHEALTH INSTALL[place] [facility] TO VISIT 2-3 X A WEEK FOR 4 WEEKS ESTABLISHED BY PATIENT NEEDS. LABORATORY: CBC, CMP TO BE DRAWN ON THE THIRD DAY HOME, (RAN STAT) FAX RESULTS TO [phone]. TELEHEALTH PARAMETERS: WEIGHT: NOTIFY MD OF WEIGHT GAIN OF 2 LBS IN 24 HOURS OR 5 LBS IN ONE WEEK HR: NOTIFY MD OF HR <55 BPM OR HR>100 BPM BP: NOTIFY MD IF BP <90/55 OR BP>140/100 O2 SAT: NOTIFY MD IF PO2<93% ON ROOM AIR SEND TELEHEALTH REPORT TO MEAT CURER AND CARDIOVASCULAR SURGEON THE FIRST WEEK OF CARE AND THEN BI-WEEKLY. PLEASE ADDITIONALLY COMMUNICATE ANY ABNORMALS AND NEW FINDINGS TO THE SURGEONS OFFICE. Discharge Disposition: HOME WITH HOME HEALTH SERVICES
--- NOTE | 2023-05-16 14:34 | P.PN ---
Subjective Progress Note Date: 05/16/23 53 year old M with PMH of HTN, HLD, bicuspid AV stenosis, history of smoking, daily drinker presents to [facility] for elective surgery. He underwent AV replacement with Dr. Quevedo on 05/11. [facility] has been consulted for medical management of this patient. 05/11 Extubated successfully. 05/12 [place] discontinued. 05/13 Insulin drip transitioned to SQ insulin. CXR showed increased pulmonary vascular congestion. Lasix 20 mg IV. Cordic, arterial line, mediastinal chest tube discontinued. 05/14 SQ insulin increased for better glycemic control. CXR showed continued pulmonary vascular congestion. Lasix 20 mg IV. Left chest tube and amezcua catheter discontinued. 05/15 CXR done today shows improved pulmonary vascular congestion. Chest US done yesterday shows trace bilateral pleural effusions. Lasix 20 mg IV. 05/16 Patient was seen and examined. Doing well. He is 92% on RA. CXR was done which showed interval development of 5% left apical pneumothorax with mild bilateral pleural effusion. CT chest shows small bilateral effusions with atelectasis. CT surgery has ordered Lasix 20 mg IV. CBC Hg 9.4 Hct 27.8. BMP unremarkable. Mag 2.2. POC glucose 106-229 over the past 24H. Discussed with Adrianne HOWARD, pro-calcitonin has been ordered and is pending to rule out PNA which will be followed up as outpatient as patient would like to go home today. He has been on Levemir 27 units QHS and Novolog 9 units TID during his hospitalization. His A1c is only 6.8. I expect his insulin requirements to go down as he recovers from his surgery. We will prescribe Lantus 10 units SQ QD along with diabetic supplies and glucometer. Patient has been advised to monitor his blood glucose 4 times a day and take his log to PCP Dr. Moreland for further titration. I expect he should be able to get off the insulin in the near future and start on oral hypoglycemics along with diet and exercise. Advised on hypoglycemic symptoms. Discussed diabetic diet. Multiple family members at bedside. Plans for discharge home today. General: non toxic, no distress, appears at stated age Derm: warm, dry Head: atraumatic, normocephalic, symmetric Eyes: EOMI, no lid lag, anicteric sclera Mouth: no lip lesion, mucus membranes moist Cardiovascular: S1S2 reg, no murmur, heart hugger in place Lungs: CTA bilateral, no rhonchi, no rales , no accessory muscle use Abdominal: soft, nontender to palpation, no guarding, no appreciable organomegaly, + BS Ext: no gross muscle atrophy, no edema, no contractures Neuro: no focal neuro deficits Psych: Alert, oriented, appropriate affect Based on my assessment of this patient, this patient meets a high complexity level of care. Patient has a history of bicuspid AV stenosis status post AV replacement POD 5 with severe exacerbation or progression of disease which poses a threat to life or bodily function. Acute blood loss anemia: Expected result of surgery. Pulmonary vascular congestion: Lasix 20 mg IV x 1 05/13, 05/14, 05/15 and 05/16. Home O2 eval passed. Diabetes mellitus with hyperglycemia: A1c 6.8. Discharge home on Lantus 10 units QD with instructions as above. Leukocytosis: Likely reactive. Monitor fever profile. No signs of active infection. Transaminitis: Possibly related to EtOH abuse. Monitor. Hypertension: Metoprolol 25 mg PO BID. Dyslipidemia: Lipitor 40 mg PO QHS. h/o EtOH abuse: Monitor for withdrawal symptoms. CODE STATUS: FULL CODE. DVT Prophylaxis: Heparin SQ GI Prophylaxis: Protonix Designated medical POA if patient is not able to make medical decisions for themselves: I have reviewed the following networks computer consultant notes: Pulmonary, Cardiology, CT surgery note. I have reviewed the results of the following tests: CBC, BMP, Mag, CXR, CT chest. I have ordered the following tests: I have discussed the care of this patient with the following independent historian: Discussed with RN and multiple family members at bedside. I have independently interpreted the following test below: I have discussed the management of this patient with the following physician: Discussed with Adrianne HOWARD with CT surgery. Objective - Vital Signs Vital signs: Vital Signs Temp 99.3 F 05/16/23 04:00 Pulse 99 05/16/23 04:00 Resp 24 05/16/23 04:00 BP 117/78 05/16/23 04:00 Pulse Ox 92 L 05/16/23 04:00 FiO2 2 05/15/23 00:00 Intake & Output 05/15/23 05/16/23 05/16/23 18:59 06:59 18:59 Intake Total 700 Output Total 985 650 Balance -285 -650 Weight 80.9 kg Intake: Tube Feeding 700 Output: Urine 985 650 Other: Voiding Method Toilet Toilet Urinal Urinal # Voids 1 # Bowel Movements 2 1 ABP, PAP, CO, CI - Last Documented Arterial Blood Pressure 112/53 Pulmonary Artery Pressure 29/15 Cardiac Output 4 Cardiac Index 2.2 - Labs CBC & Chem 7: 05/16/23 06:21 05/16/23 06:21 Labs: Abnormal Lab Results - Last 24 Hours (Table) 05/15/23 05/15/23 05/15/23 Range/Units 10:53 10:53 12:00 RBC 2.75 L (4.30-5.90) m/uL Hgb 8.7 L (13.0-17.5) gm/dL Hct 25.6 L (39.0-53.0) % Glucose 155 H (74-99) mg/dL POC Glucose (mg/dL) 136 H (70-110) mg/dL 05/15/23 05/15/23 05/15/23 Range/Units 13:53 16:24 17:36 RBC (4.30-5.90) m/uL Hgb (13.0-17.5) gm/dL Hct (39.0-53.0) % Glucose (74-99) mg/dL POC Glucose (mg/dL) 229 H 127 H 226 H (70-110) mg/dL 05/15/23 05/16/23 Range/Units 20:50 06:21 RBC 2.98 L (4.30-5.90) m/uL Hgb 9.4 L (13.0-17.5) gm/dL Hct 27.8 L (39.0-53.0) % Glucose (74-99) mg/dL POC Glucose (mg/dL) 155 H (70-110) mg/dL
[2023-05-16] MEDS: SIMETHICONE 80 MG CHEWABLE PO SCH (15:37)
[2023-05-16 15:47] VITALS: BP 112/72; PULSE 90; RESP 20; TEMP 98.8
--- NOTE | 2023-05-18 15:29 | CDI ---
Documentation Clarification Form Date: 05/18/2023 03:08:12 PM From: Tiffanie Yuen RN, CCDS Email: [email or web address] Admit Date: 05/11/2023 05:37:00 AM Patient Name: Luke Ndiaye Visit Number: [id number] Discharge Date: 05/16/2023 04:56:00 PM ATTENTION: The Clinical Documentation Specialists (CDI) and [facility] Coding Staff appreciate your assistance in clarifying documentation. Please respond to the clarification below the line at the bottom and electronically sign. The CDI & [facility] Coding staff will review the response and follow-up if needed. Please note: Queries are made part of the Legal Health Record. If you have any questions, please contact the author of this message via ITS. Dr. Aleksandr Cobbnam Your patient had pulmonary vascular congestion on serial chest x-rays and treated with IV Lasix. Based on this information and the findings below, is there an additional diagnosis that is clinically appropriate for this patient? Patient history/risk factors: patient had bicuspid aortic valve with stenosis, status post aortic valve replacement with a bovine valve prosthesis and aortic root enlargement and left atrial appendage ligation. Clinical Indicators: 05/13 CXR: Persistent cardiomegaly with bibasilar opacities and mild central vascular congestion. 05/14 CXR: Similar cardiomegaly with bibasilar opacities favoring atelectasis and small bilateral pleural effusions along with mild central vascular congestion. 05/14 Pulmonary: "Patient has mostly some postsurgical pain, no significant shortness of breath, remains on 2 L nasal cannula with O2 sats of 96%. Chest x- ray showed minimal atelectasis and component of some congestive heart failure with small right-sided pleural effusion." 05/16 IM: "Pulmonary vascular congestion: Lasix 20 mg IV x 1 05/13, 05/14, 05/15 and 05/16." Treatment: serial CXR's; IV Lasix 20mg x1 on 05/13, 05/14, 05/15 and 05/16 Is there an additional diagnosis that is clinically appropriate for this patient? [ x] Acute Pulmonary Edema [ ] Acute Pulmonary Edema related to CHF (specify type and acuity): [ ] Unable to determine [ ] Other, please specify MTDD
== END 2023-05-16 16:56 | disposition home health service (06) | DRG 163 ==
LOC: 2ORMAIN 05:37 → 2SICU 12:45
PROVIDERS: ADMIT Thoracic Surgery (Cardiothoracic Vascular Surgery); ATTEND Thoracic Surgery (Cardiothoracic Vascular Surgery)
PROC: 02UX0JZ Supplement Thoracic Aorta, Ascending/Arch with Synthetic Substitute, Open Approach (ICD-10-PCS; 2023-05-11)
PROC: 02L70CK Occlusion of Left Atrial Appendage with Extraluminal Device, Open Approach (ICD-10-PCS; 2023-05-11)
PROC: B24BZZZ Ultrasonography of Heart with Aorta (ICD-10-PCS; 2023-05-11)
PROC: B24BZZ4 Ultrasonography of Heart with Aorta, Transesophageal (ICD-10-PCS; 2023-05-11)
PROC: 5A1221Z Performance of Cardiac Output, Continuous (ICD-10-PCS; 2023-05-11)
PROC: 02RF08Z Replacement of Aortic Valve with Zooplastic Tissue, Open Approach (ICD-10-PCS; principal; 2023-05-11 08:00)
DX: Q23.1 Congenital insufficiency of aortic valve (principal); J81.0 Acute pulmonary edema; J93.83 Other pneumothorax; J44.9 Chronic obstructive pulmonary disease, unspecified; E11.65 Type 2 diabetes mellitus with hyperglycemia; F10.10 Alcohol abuse, uncomplicated; I10 Essential (primary) hypertension; E78.5 Hyperlipidemia, unspecified; D62 Acute posthemorrhagic anemia; D72.828 Other elevated white blood cell count; R74.01 Elevation of levels of liver transaminase levels; G47.8 Other sleep disorders; Z28.310 Unvaccinated for COVID-19; Z87.891 Personal history of nicotine dependence; Z82.49 Family history of ischemic heart disease and other diseases of the circulatory system
CPT/HCPCS: 71045; 71046; 71250; 76604; 80048; 80053; 82330; 82805; 83735; 84145; 85025; 85027; 85610; 85730; 86850; 86891; 86900; 86901; 86920; 88305; 88311; 94640; 94760